=== PATIENT | male | born 1940 | race African-American/Black ===

== ENCOUNTER 2016-12-01 13:03 | Inpatient (IN) | payer OTHER ==
[~2016-12-01] VITALS: Ht 182.9 cm; Wt 118.2 kg
--- NOTE | 2016-12-01 14:35 | PHYS DOC ---
Past Medical History Past Medical History: Diabetes-Type II, Hypertension Additional Past Medical Histor: neuropathy, colon cancer Past Surgical History: Other Additional Past Surgical Histo: colectomy, "swelling removed from neck, Alcohol Use: None Drug Use: None Adult General Chief Complaint Chief Complaint: KNEE INJURY HPI HPI Patient is a 76 year old male with history of hypertension, diabetes type 2, colon cancer, who presents today with bilateral knee pain mild in nature. Patient states he was pushing his grill out when he fell on his right knee on the grass. He states he tried to stand up and fell again on his left knee. Patient denies any loss of consciousness. Review of Systems Review of Systems Constitutional: Denies fever or chills [] Musculoskeletal: Bilateral knee pain and bilateral knee pain Neurologic: Denies headache, focal weakness or sensory changes [] Endocrine: Denies polyuria or polydipsia [] Current Medications Current Medications Current Medications Medications (Trade) Dose Ordered Sig/Arturo Start Time Stop Time Status Last Admin Dose Admin Tramadol HCl (Ultram) 50 mg 1X ONCE 12/01/16 15:30 12/01/16 15:31 DC 12/01/16 15:20 50 MG Allergies Allergies Allergies Coded Allergies Type Severity Reaction Last Updated Verified No Known Drug Allergies 12/01/16 No Physical Exam Physical Exam Constitutional: Well developed, well nourished, no acute distress, non-toxic appearance. [] HENT: Normocephalic, atraumatic, bilateral external ears normal, oropharynx moist, no oral exudates, nose normal. [] Skin: Warm, dry, no erythema, no rash. [] Back: No tenderness, no CVA tenderness. [] Extremities: Bilateral knees with no obvious deformity. Tenderness diffusely throughout bilateral knees. Full range of motion to bilateral knees. Negative Bobby sign and negative Lorenzo's sign negative anterior-posterior drawer sign to bilateral knees. +2 bilateral lower extremity pulses. Cap refill less than 2 seconds the bilateral lower extremities. Sensation intact to bilateral lower extremities. Neurologic: Alert and oriented X 3, normal motor function, normal sensory function, no focal deficits noted. [] Psychologic: Affect normal, judgement normal, mood normal. [] Current Patient Data Vital Signs Vital Signs Date Time Temp Pulse Resp B/P Pulse Ox O2 Delivery O2 Flow Rate FiO2 12/01/16 15:20 20 12/01/16 14:28 93 168/88 99 Room Air 12/01/16 13:10 96.8 96.8 EKG EKG [] Radiology/Procedures Radiology/Procedures [] Course & Med Decision Making Course & Med Decision Making Pertinent Labs and Imaging studies reviewed. (See chart for details) Patient is in the ED with bilateral knee contusion after falling on his knees. Her bilateral knee x-rays interpreted by radiologist are negative for any acute findings. Lloyd wrap applied to bilateral knees, by ED RN, neurovascular exam done by me is normal, cap refill less than 2 seconds. Ice elevation encouraged. I was informed by the nurses patient is not able to get up and ambulate. He was sitting on the wheelchair. I went to evaluate patient possibly. Patient stated he would like to get up and go home. Patient stood up, made a couple steps forward. As he made more steps. He fell back. He landed on his buttocks. He did hit the back of his head on the wheelchair. He did not hit his head on the ground. Patient denies any pain. I was in the room when patient fell. Informed patient I will have to admit him. Consulted with Dr. Rai. Ordered x- rays of the patient's lumbar spine and CT of the head. Dr. Camarillo accepted patient for admission Dragon Disclaimer Dragon Disclaimer This electronic medical record was generated, in whole or in part, using a voice recognition dictation system. Departure Departure Impression: Primary Impression: Contusion, knee Additional Impressions: Fall from standing Lumbar contusion Disposition: ADMITTED INPATIENT Condition: STABLE Referrals: DARLING KEENE MD (PCP) LOI DOSHI MD follow up with your doctor or the provided orthopedic doctor in one week Patient Instructions: Contusion Additional Instructions: You have knee contusion after falling. Wear Lloyd Wrap as tolerated. Ice and elevate the extremity, follow-up with orthopedic doctor in 1-2 weeks if pain continues. Scripts Tramadol Hcl (Ultram)50 Mg Tablet1 Tab PO Q6HRS PRN PAIN #20 TAB Prov:MAMIE RECINOS [employer] 12/01/16 Problem Qualifiers Primary Impression: Contusion, knee Encounter type: initial encounter Laterality: right Qualified Code: S80.01XA - Contusion of right knee, initial encounter Additional Impressions: Fall from standing Encounter type: initial encounter Qualified Code: W19.XXXA - Unspecified fall, initial encounter Lumbar contusion Encounter type: initial encounter Qualified Code: S30.0XXA - Contusion of lower back and pelvis, initial encounter MAMIE RECINOS [employer]CY[employer] Dec 01, 2016 14:35
--- NOTE | 2016-12-01 14:50 | RAD ---
Portable knees, 8 views, 12/01/2016: History: Fall, pain There is a well-defined calcific density along the medial margin of the right femoral condyle compatible with old trauma at the medial collateral ligament insertion site. This is the so-called Zabrina-Stieda lesion. The knee joint spaces are well preserved. There is minimal spurring at the patellofemoral articulations. There is a small calcific density projected over the right suprapatellar region probably representing a quadriceps tendon calcification. A small cortical avulsion fracture arising from the superior aspect of the patella cannot be excluded. There are couple of additional small radiopacities located more superiorly in the right suprapatellar region. No definite acute fracture or dislocation is identified. There is moderate subcutaneous edema particularly along the anterior aspects of both knees. IMPRESSION: 1. Old posttraumatic calcification along the medial margin of the right medial femoral condyle. 2. Small suprapatellar calcific density on the right most likely a tendinous calcification. A recent cortical avulsion fracture is less likely. 3. No definite acute fracture or dislocation is identified. 1.
[2016-12-01] MEDS ORDERED: TRAM-29 PO (15:17)
[2016-12-01] MEDS ORDERED: TRAMADOL 50 MG TABLET. PO ONE (15:30)
[2016-12-01] MEDS ORDERED: DEXTROSE 50% 25 GM / 50ML DISP.SYRIN. IV PRN (16:30)
[2016-12-01] MEDS ORDERED: FENTANYL PF 100 MCG/2 ML VIAL. IV PRN (16:30)
[2016-12-01] MEDS ORDERED: ONDANSETRON PF 4 MG/2 ML VIAL. IV PRN (16:30)
--- NOTE | 2016-12-01 16:41 | RAD ---
Three-view lumbar spine radiographs 12/01/2016 Clinical history: Low back pain post fall. AP and 2 lateral digital radiographs of the lumbar spine were obtained. Minimal S shaped curvature of the thoracolumbar spine is seen. No fracture or subluxation is seen. Degenerative changes are seen involving the facet joints of the lower lumbar spine. Impression: No fracture or subluxation of the lumbar vertebrae is seen.
--- NOTE | 2016-12-01 16:45 | RAD ---
CT of the head without contrast, 12/01/2016: History: Fall, pain The ventricles are within normal limits in size. There is no shift of the midline structures. There is no evidence of acute intracranial hemorrhage or mass effect. A faint deep white matter lucency is noted in the left posterior parietal region. In a patient of this age this most likely reflects chronic ischemic change. IMPRESSION: No acute intracranial abnormality is detected. PQRS Compliance Statement: One or more of the following individualized dose reduction techniques were utilized for this examination: 1. Automated exposure control 2. Adjustment of the mA and/or kV according to patient size 3. Use of iterative reconstruction technique
[2016-12-01] MEDS: INSULIN ASPART 300 UNITS/3 ML INSULN.PEN SQ SCH (17:00)
[2016-12-01 19:00] VITALS: BP 129/75
[2016-12-01 19:47] VITALS: BP 129/75
[2016-12-01] MEDS: IBUPROFEN 400 MG TABLET. PO PRN (22:13)
[2016-12-01 23:04] VITALS: BP 108/59
[2016-12-01 23:06] VITALS: BP 108/59
--- NOTE | 2016-12-01 23:28 | HP ---
ADMIT DATE: 12/01/2016 CHIEF COMPLAINT: Knee pain. HISTORY OF PRESENT ILLNESS: The patient is a 76-year-old overweight gentleman with diabetes, hypertension, diabetic neuropathy, who presented to the Emergency Room after falling on his knees in his yard. He relates that he was trying to reach a nicholas lion and unfortunately lost balance and fell on his right knee in the grass. He tried to stand up and promptly fell again this time on his left knee. Apparently, he fell backwards and hit his head as well, but without any loss of consciousness or wound noticeable. He presented to the ER with the above findings. X-rays ruled out any bony injury; however, upon trying to stand up, his knees once again buckled and he was therefore admitted for pain control. PAST MEDICAL HISTORY: Hypertension, diabetes mellitus, diabetic neuropathy, history of colon cancer status post resection in 1997. FAMILY HISTORY: Daughter of breast cancer two years ago. SOCIAL HISTORY: Lives with his , quit smoking many years ago. ALLERGIES: No known drug allergies. MEDICATIONS: MAR reconciled with home medications. REVIEW OF SYSTEMS: Essentially only positive for pain in both knees. He is able to bend his knees without any difficulties, no tenderness to pressure on his knees, but as soon as he stands up, the weight makes his knees buckle in pain. Rest of organ system review is completely negative. PHYSICAL EXAMINATION: VITAL SIGNS: From today show a blood pressure of 129/75, heart rate of 91, respiratory rate at 19. He is afebrile. GENERAL: This is a 76-year-old gentleman, alert and oriented, in no acute distress, very pleasant. HEENT: Shows no scleral icterus. NECK: Supple without any lymphadenopathy. LUNGS: Clear to auscultation bilaterally. HEART: Regular rate and rhythm. ABDOMEN: Positive bowel sounds, soft, nontender. EXTREMITIES: Show no edema. Evaluation of his knees shows anterior hematoma over his patella and upper portion of his knee joint/distal femur. Right side is significantly worse than left. Full range of motion is intact bilaterally. LABORATORY DATA: Imaging Studies: Knee x-rays show old posttraumatic calcifications along the medial margin of the right medial femoral condyle, calcific density also seen in the suprapatellar area, most likely a tendinous calcification. No acute fracture or dislocation is noted. Lumbar spine x-ray was obtained as well, not showing any subluxation or fracture. CT of the head likewise without any acute findings. ASSESSMENT AND PLAN: The patient is a 76-year-old gentleman status post traumatic injury to his knees. Thank goodness, this is only soft tissue. We will treat conservatively. He would prefer nonopioid medications. We will give NSAIDs and ice to his knees. Get him evaluated by a physical therapy in the morning. He may benefit from walker at home for the next week or two to help him offload some of his weight. We will continue all his home medications. He actually brought his pill dispenser with him. BERT HILARIO MD DR: UR/nts JOB#: [id number] / [id number] DARLING Caldwell MD MTDD
--- NOTE | 2016-12-02 05:51 | ACF ---
Admit Criteria Forms Admit Criteria Forms Admit Criteria Forms MUSCULOSKELETAL DISEASE GRG Clinical Indications for Admission to Inpatient Care (Place 'X' for any and all applicable criteria): Hospital admission is needed for appropriate care of the patient because of 1 or more of the following: [ ]I. Fracture, dislocation, or other musculoskeletal injury requiring inpatient care(medical) as indicated by 1 or more of the following(4)(5)(6)(7) [ ]a) Vertebral fracture requiring observation for instability or neurologic compromise (8) [ ]b) Compartment syndrome (proven or cannot be ruled out during observation level of care) (9) [ ]c) Limb-threatening injury [ ]d) Major injury requiring inpatient stabilization such as traction initiation or external fixation before internal fixation or closure of complex or open fracture [ ]e) Major injury requiring inpatient treatment after emergency or observation level care (as appropriate) [ ]f) Severe pain requiring acute inpatient management [ ]g) Injury with suspicion of abuse or neglect (eg., child, dependent elderly) [ ]II. Newly diagnosed or suspected bone, joint, or orthopedic device infection (e.g., osteomyelitis, septic arthritis) needing 1 or more of the following(1)(2)(3) [ ]a) IV antibiotics that cannot be initiated in other than inpatient setting (e.g., patient too unstable or home infusion not available) [ ]b) Device removal or replacement [ ]c) Bone or soft tissue debridement [ ]d) Joint drainage (drain placement or repetitive aspirations) [ ]III. Severe rheumatologic disease (e.g., systemic lupus erythematosus, rheumatoid arthritis) with complications or comorbidities (Also use Optimal Recovery Care Criteria or General Recovery Criteria as appropriate on the basis of predominant condition), including 1 or more of the following( 10)(11)(12)(13) [ ]a) Severe infection (e.g., MULTIMEDIA COORDINATOR infection, sepsis) (14) [ ]b) Respiratory complications, including 1 or more of the following : [ ]i) Pleural effusion with respiratory compromise [ ]ii) Pulmonary hypertension with congestive failure [ ]iii) Respiratory failure [ ]iv) Pulmonary hemorrhage (15) [ ]c) Hematologic disease, including 1 or more of the following: [ ]i) Coagulopathy with bleeding [ ]ii) Thrombosis with hypercoagulable state [ ]iii) Thrombotic thrombocytopenic purpura [ ]d) Cerebritis with seizures, psychosis, or other severe abnormalities [ ]e) Vertebral destruction with monitoring needed for cervical myelopathy& possible respiratory compromise [ ]f) Exacerbation that requires inpatient treatment (e.g., intravenous immunosuppression) (16) [ ]g) Acute renal failure [ ]h) Cerebritis with seizures, psychosis, Altered mental status, or other neurologic abnormalities [ ]i) Pericardial effusion with tamponade [ ]j) Vertebral destruction, with monitoring needed for cervical myelopathy and possible respiratory compromise [ ]IV. Severe vasculitis with complications or comorbidities (Also use Optimal Recovery Care Criteria General Recovery Criteria as appropriate on the basis of predominant condition), including 1 or more of the following(11)(12)(17)(18)(19)(20) [ ]a) Exacerbation that requires inpatient treatment (e.g., intravenous immunosuppression) (19)(21) [ ]b) Pulmonary hemorrhage (15) [ ]c) MULTIMEDIA COORDINATOR vasculitis with seizures, psychosis, Altered mental status that is severe or persistent, or other severe abnormalities (22) [ ]d) Cerebral infarction [ ]e) Gastrointestinal ischemia [ ]f) Gangrene or threatened amputation [ ]g) Renal failure (16) [ ]h) Other significant complications of vasculitis ( eg., tissue or organ ischemia, organ dysfunction ) [ ]V. Severe myopathy as indicated by 1 or more of the following (28)(29) [ ]a) New onset of airway compromise or inability to swallow [ ]b) Respiratory deterioration with observation needed for impending respiratory failure [ ]c) Exacerbation that requires inpatient treatment (e.g., intravenous immunosuppression) [ ]. Severe crystal gout (arthropathy) indicated by 1 or more of the following (23)(24) [ ]a) Severe pain requiring acute inpatient management [ ]b) Exacerbation that requires inpatient treatment (e.g., intravenous treatment) [ ]VII.Rhabdomyolysis and 1 or more of the following (25)(26)(27) [ ]a) Acute renal failure [ ]b) Need for intravenous hydration after emergency or observation level care (as appropriate) [ ]c) Inability to maintain oral hydration [ ]d) Change in mental status [ ]e) Electrolyte abnormality that remains after emergency or observation level care (as appropriate) [ ]VIII Post amputation complication, as indicated by ANY ONE of the following [ ]a) Infection [ ]b) Dehiscence [ ]c) Myodesis failure [X]IX. Severe pain requiring acute inpatient management due to musculoskeletal condition [ ]X. Musculoskeletal Disease and ALL of the following: [ ]a) Symptom or finding for which emergency and observation care have failed or are not considered appropriate (Use General Criteria: Observation Care as appropriate) [ ]b) Presence of ANY ONE of the following [ ]i) A General Admission Criteria [ ]ii) A Pediatric General Admission Criteria The original [facility] [employer] content created by [facility] has been revised. The portions of the content which have been revised are identified through the use of italic text or in bold, and [facility] has neither reviewed nor approved the modified material. All other unmodified content is copyright [facility]. Please see references footnoted in the original [facility] edition 2016 CORINNE CHUN Dec 02, 2016 05:51
[2016-12-02 05:55] LABS: BASO % 0 % (0-3); EOS % 1 % (0-3); HEMATOCRIT 32.3 % (39.0-53.0); HEMOGLOBIN 10.9 g/dL (13.0-17.5); LYMPH # 1.9 x10^3/uL (1.0-4.8); LYMPH % 27 % (24-48); MEAN CORPUSCULAR HEMOGLOBIN 31 pg (25-35); MEAN CORPUSCULAR HGB CONC 34 g/dL (31-37); MEAN CORPUSCULAR VOLUME 93 fL (79-100); MONO % 10 % (0-9); NEUT % 61 % (31-73); PLATELET COUNT 165 x10^3/uL (140-400); RED BLOOD COUNT 3.47 x10^6/uL (4.30-5.70); RED CELL DISTRIBUTION WIDTH 13.2 % (11.5-14.5); WHITE BLOOD COUNT 7.3 x10^3/uL (4.0-11.0)
[2016-12-02 06:24] LABS: CREATININE 1.6 mg/dL (0.7-1.3); POTASSIUM 4.3 mmol/L (3.5-5.1)
[2016-12-02 07:00] VITALS: BP 130/68
[2016-12-02] MEDS: INSULIN ASPART 300 UNITS/3 ML INSULN.PEN SQ SCH ×3 (08:00→17:18)
--- NOTE | 2016-12-02 10:39 | PDOC ---
PROGRESS NOTES Chief Complaint Chief Complaint cc: fall A/P Fall at home Swelling of Right knee, no fractures seen HTN Plan Pain control PT/OT Monitor labs Fall precautions Consult orthopedic for uncontrolled pain labs reviewed. Vitals Vitals Vital Signs Date Time Temp Pulse Resp B/P Pulse Ox O2 Delivery O2 Flow Rate FiO2 12/02/16 07:00 97.9 79 18 130/68 95 Room Air 97.9 Physical Exam General: Alert, Oriented X3 Heart: Normal S1, Normal S2 Lungs: Clear Abdomen: Normal bowel sounds Extremities: No clubbing Labs LABS Laboratory Tests Test 12/01/16 20:54 12/02/16 05:15 12/02/16 07:29 Glucose (Fingerstick) 141mg/dL (70-99) 137mg/dL (70-99) White Blood Count 7.3x10^3/uL (4.0-11.0) Red Blood Count 3.47x10^6/uL (4.30-5.70) Hemoglobin 10.9g/dL (13.0-17.5) Hematocrit 32.3% (39.0-53.0) Mean Corpuscular Volume 93fL (79-100) Mean Corpuscular Hemoglobin 31pg (25-35) Mean Corpuscular Hemoglobin Concent 34g/dL (31-37) Red Cell Distribution Width 13.2% (11.5-14.5) Platelet Count 165x10^3/uL (140-400) Neutrophils (%) (Auto) 61% (31-73) Lymphocytes (%) (Auto) 27% (24-48) Monocytes (%) (Auto) 10% (0-9) Eosinophils (%) (Auto) 1% (0-3) Basophils (%) (Auto) 0% (0-3) Neutrophils # (Auto) 4.5x10^3uL (1.8-7.7) Lymphocytes # (Auto) 1.9x10^3/uL (1.0-4.8) Monocytes # (Auto) 0.7x10^3/uL (0.0-1.1) Eosinophils # (Auto) 0.1x10^3/uL (0.0-0.7) Basophils # (Auto) 0.0x10^3/uL (0.0-0.2) Sodium Level 138mmol/L (136-145) Potassium Level 4.3mmol/L (3.5-5.1) Chloride Level 103mmol/L (98-107) Carbon Dioxide Level 30mmol/L (21-32) Anion Gap 5 (6-14) Blood Urea Nitrogen 20mg/dL (8-26) Creatinine 1.6mg/dL (0.7-1.3) Estimated GFR (Cockcroft-Gault) 51.0 Glucose Level 136mg/dL (70-99) Calcium Level 9.0mg/dL (8.5-10.1) Assessment and Plan Assessmemt and Plan Problems Medical Problems: (1) Contusion, knee Status: Acute (2) Fall from standing Status: Acute (3) Lumbar contusion Status: Acute Problems: Comment Review of Relevant I have reviewed the following items romi (where applicable) has been applied. Labs Laboratory Tests Test 12/01/16 20:54 12/02/16 05:15 12/02/16 07:29 Glucose (Fingerstick) 141mg/dL (70-99) 137mg/dL (70-99) White Blood Count 7.3x10^3/uL (4.0-11.0) Red Blood Count 3.47x10^6/uL (4.30-5.70) Hemoglobin 10.9g/dL (13.0-17.5) Hematocrit 32.3% (39.0-53.0) Mean Corpuscular Volume 93fL (79-100) Mean Corpuscular Hemoglobin 31pg (25-35) Mean Corpuscular Hemoglobin Concent 34g/dL (31-37) Red Cell Distribution Width 13.2% (11.5-14.5) Platelet Count 165x10^3/uL (140-400) Neutrophils (%) (Auto) 61% (31-73) Lymphocytes (%) (Auto) 27% (24-48) Monocytes (%) (Auto) 10% (0-9) Eosinophils (%) (Auto) 1% (0-3) Basophils (%) (Auto) 0% (0-3) Neutrophils # (Auto) 4.5x10^3uL (1.8-7.7) Lymphocytes # (Auto) 1.9x10^3/uL (1.0-4.8) Monocytes # (Auto) 0.7x10^3/uL (0.0-1.1) Eosinophils # (Auto) 0.1x10^3/uL (0.0-0.7) Basophils # (Auto) 0.0x10^3/uL (0.0-0.2) Sodium Level 138mmol/L (136-145) Potassium Level 4.3mmol/L (3.5-5.1) Chloride Level 103mmol/L (98-107) Carbon Dioxide Level 30mmol/L (21-32) Anion Gap 5 (6-14) Blood Urea Nitrogen 20mg/dL (8-26) Creatinine 1.6mg/dL (0.7-1.3) Estimated GFR (Cockcroft-Gault) 51.0 Glucose Level 136mg/dL (70-99) Calcium Level 9.0mg/dL (8.5-10.1) Laboratory Tests Test 12/01/16 20:54 12/02/16 05:15 12/02/16 07:29 Glucose (Fingerstick) 141mg/dL (70-99) 137mg/dL (70-99) White Blood Count 7.3x10^3/uL (4.0-11.0) Red Blood Count 3.47x10^6/uL (4.30-5.70) Hemoglobin 10.9g/dL (13.0-17.5) Hematocrit 32.3% (39.0-53.0) Mean Corpuscular Volume 93fL (79-100) Mean Corpuscular Hemoglobin 31pg (25-35) Mean Corpuscular Hemoglobin Concent 34g/dL (31-37) Red Cell Distribution Width 13.2% (11.5-14.5) Platelet Count 165x10^3/uL (140-400) Neutrophils (%) (Auto) 61% (31-73) Lymphocytes (%) (Auto) 27% (24-48) Monocytes (%) (Auto) 10% (0-9) Eosinophils (%) (Auto) 1% (0-3) Basophils (%) (Auto) 0% (0-3) Neutrophils # (Auto) 4.5x10^3uL (1.8-7.7) Lymphocytes # (Auto) 1.9x10^3/uL (1.0-4.8) Monocytes # (Auto) 0.7x10^3/uL (0.0-1.1) Eosinophils # (Auto) 0.1x10^3/uL (0.0-0.7) Basophils # (Auto) 0.0x10^3/uL (0.0-0.2) Sodium Level 138mmol/L (136-145) Potassium Level 4.3mmol/L (3.5-5.1) Chloride Level 103mmol/L (98-107) Carbon Dioxide Level 30mmol/L (21-32) Anion Gap 5 (6-14) Blood Urea Nitrogen 20mg/dL (8-26) Creatinine 1.6mg/dL (0.7-1.3) Estimated GFR (Cockcroft-Gault) 51.0 Glucose Level 136mg/dL (70-99) Calcium Level 9.0mg/dL (8.5-10.1) Medications Current Medications Tramadol HCl (Ultram) 50 mg 1X ONCE PO Last administered on 12/01/16 15:20; Start 12/01/16 at 15:30; Stop 12/01/16 at 15:31; Status DC Ondansetron HCl (Zofran) 4 mg PRN Q8HRS PRN IV NAUSEA/VOMITING; Start 12/01/16 at 16:30; Stop 12/02/16 at 16:29 Fentanyl Citrate (Fentanyl 2ml Vial) 50 mcg PRN Q2HR PRN IV PAIN; Start at 16:30; Stop 12/02/16 at 16:29 Insulin Aspart (Novolog) 0-5 UNITS TIDWMEALS SQ ; Start 12/01/16 at 17:00 Dextrose (Dextrose 50%-Water Syringe) 12.5 gm PRN Q15MIN PRN IV SEE COMMENTS; Start 12/01/16 at 16:30 Ibuprofen (Motrin) 400 mg PRN TID PRN PO INFLAMMATION Last administered on 12/01 22:13; Start 12/01/16 at 22:00 Active Scripts Active Ultram (Tramadol Hcl) 50 Mg Tablet 1 Tab PO Q6HRS PRN Vitals/I & O Vital Sign - Last 24 Hours 12/01/16 12/01/16 12/01/16 12/01/16 13:10 13:28 13:58 14:28 Temp 96.8 96.8 Pulse 94 98 92 93 Resp 20 18 B/P 180/73 154/74 163/81 168/88 Pulse Ox 99 99 99 99 O2 Delivery Room Air Room Air Room Air Room Air 12/01/16 12/01/16 12/01/16 12/01/16 14:58 15:20 16:08 16:42 Pulse 94 99 97 Resp 18 B/P 175/114 141/62 169/80 Pulse Ox 99 100 97 O2 Delivery Room Air Room Air Room Air 12/01/16 12/01/16 12/01/16 12/01/16 17:12 17:42 18:12 19:00 Temp 97.7 97.7 Pulse 94 91 88 91 Resp B/P 148/76 163/79 156/72 129/75 Pulse Ox 98 99 99 96 O2 Delivery Room Air Room Air Room Air Room Air 12/01/16 12/01/16 12/01/16 12/01/16 19:47 20:00 22:44 23:04 Temp 97.7 98.7 97.7 98.7 Pulse 91 95 Resp 18 B/P 129/75 108/59 Pulse Ox 96 93 O2 Delivery Room Air Room Air Room Air Room Air 12/01/16 12/02/16 23:06 07:00 Temp 98.7 97.9 98.7 97.9 Pulse 95 79 Resp 18 B/P 108/59 130/68 Pulse Ox 93 95 O2 Delivery Room Air Intake and Output 12/01/16 12/01/16 12/02/16 15:00 23:00 07:00 Intake Total 800 ml Output Total 375 ml 1500 ml Balance -375 ml -700 ml EDVIN REDMOND MD Dec 02, 2016 10:39
[2016-12-02 11:00] VITALS: BP 124/65
[2016-12-02] MEDS: IBUPROFEN 400 MG TABLET. PO PRN (13:10)
[2016-12-02 14:45] VITALS: BP 124/63
[2016-12-02] MEDS: HYDROCODONE/APAP 5/325MG TABLET. PO PRN (17:18)
[2016-12-02 19:00] VITALS: BP 123/61
[2016-12-02 23:00] VITALS: BP 130/72
[2016-12-03 03:00] VITALS: BP 146/68
[2016-12-03 07:00] VITALS: BP 129/60
[2016-12-03 07:19] LABS: CALCIUM 8.7 mg/dL (8.5-10.1); CREATININE 1.5 mg/dL (0.7-1.3); GFR 54.9; POTASSIUM 4.6 mmol/L (3.5-5.1)
[2016-12-03] MEDS: INSULIN ASPART 300 UNITS/3 ML INSULN.PEN SQ SCH ×3 (08:00→17:00)
[2016-12-03 11:00] VITALS: BP 137/62
--- NOTE | 2016-12-03 11:10 | RAD ---
PROCEDURE MR of the bilateral thighs History bilateral pain after a fall, quadriceps tendon tears. TECHNIQUE Routine multiplanar sequences are obtained through the right and left thighs HISTORY COMPARISON FINDINGS [id number] includes the mid to distal aspect of the right and left thigh. Right thigh Complete rupture of the distal quadriceps tendon at the patellar attachment. There is less than 1 centimeter fluid gap between the distal tendon and the patella. Although visualization is limited, there is probably a high-grade tear medial retinacular structures. Extensive surrounding fluid and hemorrhage which dissects through the proximal thigh. There is feathery edema and fluid signal within the quadriceps musculature, greatest at the vastus lateralis muscle, compatible with partial intramuscular tearing. Generalized subcutaneous edema or hemorrhage. No evidence of bone marrow edema or acute fracture. Left thigh High-grade tear of the distal quadriceps tendon, either complete or near-complete, located about 1 centimeter above the patellar attachment. There may be a few intact fibers maintaining continuity but most of the tendon is torn. There is surrounding fluid and hemorrhage. Although incompletely seen, there may be a tear of the medial retinacular structures as well. Fluid and hemorrhage in this area dissects proximally in the thigh. There is intramuscular partial tearing particularly the vastus lateralis muscle. No evidence of bone lesion, marrow edema or acute fracture. IMPRESSION 1. Complete rupture of the distal right quadriceps tendon with proximal intramuscular injury. 2. Complete or near complete rupture of the distal left quadriceps tendon with proximal intramuscular injury. Electronically signed by: Garth Gunn MD (Dec 03, 2016 11:09:31)
--- NOTE | 2016-12-03 12:48 | PDOC ---
PROGRESS NOTES Chief Complaint Chief Complaint cc: fall A/P Fall at home Swelling of Right knee, Complete rupture of the distal right quadriceps tendon Complete/ near complete rupture of the distal left quadriceps tendon HTN Plan Pain control with Noco MRI results d/w pt and his Surgical plans in AM PT/OT Monitor labs Fall precautions IV hydration Monitor renal functions DVT prophylaxis. Vitals Vitals Vital Signs Date Time Temp Pulse Resp B/P Pulse Ox O2 Delivery O2 Flow Rate FiO2 12/03/16 11:00 97.4 88 22 137/62 98 Room Air 97.4 Physical Exam General: Alert, Oriented X3 Heart: Normal S1, Normal S2 Lungs: Clear Abdomen: Normal bowel sounds Extremities: No clubbing Labs LABS Laboratory Tests Test 12/02/16 16:15 12/02/16 21:21 12/03/16 06:05 12/03/16 07:43 Glucose (Fingerstick) 93mg/dL (70-99) 98mg/dL (70-99) 118mg/dL (70-99) Sodium Level 139mmol/L (136-145) Potassium Level 4.6mmol/L (3.5-5.1) Chloride Level 103mmol/L (98-107) Carbon Dioxide Level 28mmol/L (21-32) Anion Gap 8 (6-14) Blood Urea Nitrogen 21mg/dL (8-26) Creatinine 1.5mg/dL (0.7-1.3) Estimated GFR (Cockcroft-Gault) 54.9 Glucose Level 110mg/dL (70-99) Calcium Level 8.7mg/dL (8.5-10.1) Test 12/03/16 11:30 Glucose (Fingerstick) 128mg/dL (70-99) Assessment and Plan Assessmemt and Plan Problems Medical Problems: (1) Contusion, knee Status: Acute (2) Fall from standing Status: Acute (3) Lumbar contusion Status: Acute Problems: Comment Review of Relevant I have reviewed the following items romi (where applicable) has been applied. Labs Laboratory Tests Test 12/01/16 20:54 12/02/16 05:15 12/02/16 07:29 12/02/16 10:57 Glucose (Fingerstick) 141mg/dL (70-99) 137mg/dL (70-99) 125mg/dL (70-99) White Blood Count 7.3x10^3/uL (4.0-11.0) Red Blood Count 3.47x10^6/uL (4.30-5.70) Hemoglobin 10.9g/dL (13.0-17.5) Hematocrit 32.3% (39.0-53.0) Mean Corpuscular Volume 93fL (79-100) Mean Corpuscular Hemoglobin 31pg (25-35) Mean Corpuscular Hemoglobin Concent 34g/dL (31-37) Red Cell Distribution Width 13.2% (11.5-14.5) Platelet Count 165x10^3/uL (140-400) Neutrophils (%) (Auto) 61% (31-73) Lymphocytes (%) (Auto) 27% (24-48) Monocytes (%) (Auto) 10% (0-9) Eosinophils (%) (Auto) 1% (0-3) Basophils (%) (Auto) 0% (0-3) Neutrophils # (Auto) 4.5x10^3uL (1.8-7.7) Lymphocytes # (Auto) 1.9x10^3/uL (1.0-4.8) Monocytes # (Auto) 0.7x10^3/uL (0.0-1.1) Eosinophils # (Auto) 0.1x10^3/uL (0.0-0.7) Basophils # (Auto) 0.0x10^3/uL (0.0-0.2) Sodium Level 138mmol/L (136-145) Potassium Level 4.3mmol/L (3.5-5.1) Chloride Level 103mmol/L (98-107) Carbon Dioxide Level 30mmol/L (21-32) Anion Gap 5 (6-14) Blood Urea Nitrogen 20mg/dL (8-26) Creatinine 1.6mg/dL (0.7-1.3) Estimated GFR (Cockcroft-Gault) 51.0 Glucose Level 136mg/dL (70-99) Calcium Level 9.0mg/dL (8.5-10.1) Test 12/02/16 16:15 12/02/16 21:21 12/03/16 06:05 12/03/16 07:43 Glucose (Fingerstick) 93mg/dL (70-99) 98mg/dL (70-99) 118mg/dL (70-99) Sodium Level 139mmol/L (136-145) Potassium Level 4.6mmol/L (3.5-5.1) Chloride Level 103mmol/L (98-107) Carbon Dioxide Level 28mmol/L (21-32) Anion Gap 8 (6-14) Blood Urea Nitrogen 21mg/dL (8-26) Creatinine 1.5mg/dL (0.7-1.3) Estimated GFR (Cockcroft-Gault) 54.9 Glucose Level 110mg/dL (70-99) Calcium Level 8.7mg/dL (8.5-10.1) Test 12/03/16 11:30 Glucose (Fingerstick) 128mg/dL (70-99) Laboratory Tests Test 12/02/16 16:15 12/02/16 21:21 12/03/16 06:05 12/03/16 07:43 Glucose (Fingerstick) 93mg/dL (70-99) 98mg/dL (70-99) 118mg/dL (70-99) Sodium Level 139mmol/L (136-145) Potassium Level 4.6mmol/L (3.5-5.1) Chloride Level 103mmol/L (98-107) Carbon Dioxide Level 28mmol/L (21-32) Anion Gap 8 (6-14) Blood Urea Nitrogen 21mg/dL (8-26) Creatinine 1.5mg/dL (0.7-1.3) Estimated GFR (Cockcroft-Gault) 54.9 Glucose Level 110mg/dL (70-99) Calcium Level 8.7mg/dL (8.5-10.1) Test 12/03/16 11:30 Glucose (Fingerstick) 128mg/dL (70-99) Medications Current Medications Tramadol HCl (Ultram) 50 mg 1X ONCE PO Last administered on 12/01/16t 15:20; Start 12/01/16 at 15:30; Stop 12/01/16 at 15:31; Status DC Ondansetron HCl (Zofran) 4 mg PRN Q8HRS PRN IV NAUSEA/VOMITING; Start 12/01/16 at 16:30; Stop 12/02/16 at 16:29; Status DC Fentanyl Citrate (Fentanyl 2ml Vial) 50 mcg PRN Q2HR PRN IV PAIN; Start at 16:30; Stop 12/02/16 at 16:29; Status DC Insulin Aspart (Novolog) 0-5 UNITS TIDWMEALS SQ ; Start 12/01/16 at 17:00 Dextrose (Dextrose 50%-Water Syringe) 12.5 gm PRN Q15MIN PRN IV SEE COMMENTS; Start 12/01/16 at 16:30 Ibuprofen (Motrin) 400 mg PRN TID PRN PO INFLAMMATION Last administered on 12/02 13:10; Start 12/01/16 at 22:00 Acetaminophen/ Hydrocodone Bitart (Lortab 5/325) 1 tab PRN Q4HRS PRN PO PAIN Last administered on 12/02/16 17:18; Start 12/02/16 at 15:30 Active Scripts Active Ultram (Tramadol Hcl) 50 Mg Tablet 1 Tab PO Q6HRS PRN Vitals/I & O Vital Sign - Last 24 Hours 12/02/16 12/02/16 12/02/16 12/02/16 14:45 17:18 19:00 20:10 Temp 97.9 98.4 97.9 98.4 Pulse 76 81 Resp 18 16 B/P 124/63 123/61 Pulse Ox 99 94 O2 Delivery Room Air Room Air Room Air Room Air 12/02/16 12/03/16 12/03/16 12/03/16 23:00 03:00 07:00 11:00 Temp 98.6 98.9 97.9 97.4 98.6 98.9 97.9 97.4 Pulse 78 77 84 88 Resp 18 18 20 22 B/P 130/72 146/68 129/60 137/62 Pulse Ox 94 97 97 98 O2 Delivery Room Air Room Air Room Air Room Air Intake and Output 12/02/16 12/02/16 12/03/16 15:00 23:00 07:00 Intake Total 500 ml 1050 ml Output Total 1000 ml 550 ml Balance 500 ml 50 ml -550 ml EDVIN REDMOND MD Dec 03, 2016 12:48
--- NOTE | 2016-12-03 13:10 | CONS ---
DATE OF CONSULTATION: 12/02/2016 ATTENDING PHYSICIAN: Dr. Camarillo. The patient was seen at the request of Dr. Frances for evaluation about his knee pain. HISTORY OF PRESENT ILLNESS: This is a 76-year-old right-handed male with known diabetes mellitus, hypertension, diabetic peripheral neuropathy, admitted through the Emergency Room after falling on his knees while working in the yard. He was trying to pull some weeds, his right foot slipped on wet surface and he felt a pop while landing on his right knee, then while trying to get up, his left knee also popped while falling down, since then he had difficulty to stand up. He was seen in the Emergency Room, diagnosed as having contusion in knee and he wants to go home and while tried to get up, he fell again in the Emergency Room. The patient was admitted for further evaluation and treatment. He admits less swelling of his knees, still some bruising of his right knee and swelling of his right knee. The patient also with history of carcinoma of colon, status post resection in 1997. Family history of daughter of breast cancer 2 years ago. Lives with his , had stairs to climb to enter the bedroom area, railing in place. He is not known allergic to any medication and he is independent with his mobility and self-care skills, not using any assistive devices prior to his fall on 12/01/2016. He had x-rays of knees, which revealed old post-traumatic calcification along the medial margin of right medial femoral condyle, small suprapatellar calcific density on the right, most likely tendinous calcification, a recent cortical avulsion fraction is less likely. No definite acute fracture or dislocation is identified. 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 The patient had lumbar spine x-rays, which revealed mild degenerative joint disease changes, minimal ____ curvature of thoracolumbar spine and CT scan of the brain failed to reveal any acute abnormality, deep white matter lucency, ____ in the left posterior parietal region representing chronic ischemic changes. The patient is being followed by physical therapy. Physical therapy noted him unable to hold any resistance against gravity and able to give some muscle contraction with a quad set but diminished from expected effort. They noted him requiring minimal assistance for supine to sit, minimal assistance sit to supine, bed mobility requiring lower extremity assistance, maximal assistance with transfers, sit to stand with a roller walker, attempted to stand multiple times. He completed about 75% of the stand with the bed raised during the last effort with maximal assistance with bilateral knee buckle and had quick descent to edge of the bed. He was able to use upper body to scoot back into the bed. He reports pain as limiting factor. PHYSICAL EXAMINATION: Today revealed an elderly obese male. He is alert, oriented to time, place, person and circumstance and follows commands appropriately, moves all 4 extremities voluntarily where he had 4+/5 grade muscle strength overall except no active knee extension bilaterally. He had gaping at the site of quadriceps tendon proximal to patella bilaterally. He had minimal bruising of the skin over anterior aspect of right knee. He had pain free range of motion of all four extremity joints. Deep tendon reflexes are decreased overall with absent knee and ankle jerks. He had equal perception of touch and pinprick sensation bilaterally. No significant pain or tenderness to palpation over lumbar spine area. ASSESSMENT: Acute rupture of quadriceps tendon bilaterally from a fall, onset 12/01/2016 in a patient with known diabetes mellitus, hypertension with associated diabetic peripheral neuropathy, also carcinoma of colon, status post resection, mild obesity. RECOMMENDATIONS: To obtain MRI scan of his knees to confirm rupture of the quadriceps tendon to ____ try to provide him knee arthrosis that will help with knee extension or keep the knee in extension position and to consult Dr. Howard who felt comfortable with quadriceps tendon repair. Dr. Frances, I appreciate asking me to participate in the care of this interesting patient. I will be glad to follow him with you as needed for rehabilitation. He probably needs to be transferred to acute rehab unit after the surgical procedure for continued work with his mobility and self-care skills. ANEUDY THURSTON MD DR: MADHAVI/alice JOB#: [id number] / [id number]
--- NOTE | 2016-12-03 14:48 | PDOC ---
PROGRESS NOTES Subjective Subjective He is comfortable but continues to have difficulty to extend his knees. Objective Objective Vital Signs Date Time Temp Pulse Resp B/P Pulse Ox O2 Delivery O2 Flow Rate FiO2 12/03/16 11:00 97.4 88 22 137/62 98 Room Air 97.4 Intake and Output 12/03/16 07:00 Intake Total 1550 ml Output Total 1550 ml Balance 0 ml Intake Oral 1550 ml Output Urine Total 1550 ml Physical Exam Physical Exam Mri scan confirmed rupture of quadriceps tendon with associated tearing of quadriceps muscle belly and hematoma.He continues without any active knee extension bilaterally. Assessment Assessment Problems Medical Problems: (1) Contusion, knee Status: Acute (2) Fall from standing Status: Acute (3) Lumbar contusion Status: Acute Plan Plan of Care Plans for surgical repair tomorrow and he will receive brace to both knees and to resume therapy follow up and to rehab or SNF depending on his participation and progress with therapy and restrictions about weight bearing on his feet. Comment Review of Relevant I have reviewed the following items romi (where applicable) has been applied. Labs Laboratory Tests Test 12/01/16 20:54 12/02/16 05:15 12/02/16 07:29 12/02/16 10:57 Glucose (Fingerstick) 141mg/dL (70-99) 137mg/dL (70-99) 125mg/dL (70-99) White Blood Count 7.3x10^3/uL (4.0-11.0) Red Blood Count 3.47x10^6/uL (4.30-5.70) Hemoglobin 10.9g/dL (13.0-17.5) Hematocrit 32.3% (39.0-53.0) Mean Corpuscular Volume 93fL (79-100) Mean Corpuscular Hemoglobin 31pg (25-35) Mean Corpuscular Hemoglobin Concent 34g/dL (31-37) Red Cell Distribution Width 13.2% (11.5-14.5) Platelet Count 165x10^3/uL (140-400) Neutrophils (%) (Auto) 61% (31-73) Lymphocytes (%) (Auto) 27% (24-48) Monocytes (%) (Auto) 10% (0-9) Eosinophils (%) (Auto) 1% (0-3) Basophils (%) (Auto) 0% (0-3) Neutrophils # (Auto) 4.5x10^3uL (1.8-7.7) Lymphocytes # (Auto) 1.9x10^3/uL (1.0-4.8) Monocytes # (Auto) 0.7x10^3/uL (0.0-1.1) Eosinophils # (Auto) 0.1x10^3/uL (0.0-0.7) Basophils # (Auto) 0.0x10^3/uL (0.0-0.2) Sodium Level 138mmol/L (136-145) Potassium Level 4.3mmol/L (3.5-5.1) Chloride Level 103mmol/L (98-107) Carbon Dioxide Level 30mmol/L (21-32) Anion Gap 5 (6-14) Blood Urea Nitrogen 20mg/dL (8-26) Creatinine 1.6mg/dL (0.7-1.3) Estimated GFR (Cockcroft-Gault) 51.0 Glucose Level 136mg/dL (70-99) Calcium Level 9.0mg/dL (8.5-10.1) Test 12/02/16 16:15 12/02/16 21:21 12/03/16 06:05 12/03/16 07:43 Glucose (Fingerstick) 93mg/dL (70-99) 98mg/dL (70-99) 118mg/dL (70-99) Sodium Level 139mmol/L (136-145) Potassium Level 4.6mmol/L (3.5-5.1) Chloride Level 103mmol/L (98-107) Carbon Dioxide Level 28mmol/L (21-32) Anion Gap 8 (6-14) Blood Urea Nitrogen 21mg/dL (8-26) Creatinine 1.5mg/dL (0.7-1.3) Estimated GFR (Cockcroft-Gault) 54.9 Glucose Level 110mg/dL (70-99) Calcium Level 8.7mg/dL (8.5-10.1) Test 12/03/16 11:30 Glucose (Fingerstick) 128mg/dL (70-99) Laboratory Tests Test 12/02/16 16:15 12/02/16 21:21 12/03/16 06:05 12/03/16 07:43 Glucose (Fingerstick) 93mg/dL (70-99) 98mg/dL (70-99) 118mg/dL (70-99) Sodium Level 139mmol/L (136-145) Potassium Level 4.6mmol/L (3.5-5.1) Chloride Level 103mmol/L (98-107) Carbon Dioxide Level 28mmol/L (21-32) Anion Gap 8 (6-14) Blood Urea Nitrogen 21mg/dL (8-26) Creatinine 1.5mg/dL (0.7-1.3) Estimated GFR (Cockcroft-Gault) 54.9 Glucose Level 110mg/dL (70-99) Calcium Level 8.7mg/dL (8.5-10.1) Test 12/03/16 11:30 Glucose (Fingerstick) 128mg/dL (70-99) Medications Current Medications Tramadol HCl (Ultram) 50 mg 1X ONCE PO Last administered on 12/01/16 15:20; Start 12/01/16 at 15:30; Stop 12/01/16 at 15:31; Status DC Ondansetron HCl (Zofran) 4 mg PRN Q8HRS PRN IV NAUSEA/VOMITING; Start 12/01/16 at 16:30; Stop 12/02/16 at 16:29; Status DC Fentanyl Citrate (Fentanyl 2ml Vial) 50 mcg PRN Q2HR PRN IV PAIN; Start at 16:30; Stop 12/02/16 at 16:29; Status DC Insulin Aspart (Novolog) 0-5 UNITS TIDWMEALS SQ ; Start 12/01/16 at 17:00 Dextrose (Dextrose 50%-Water Syringe) 12.5 gm PRN Q15MIN PRN IV SEE COMMENTS; Start 12/01/16 at 16:30 Ibuprofen (Motrin) 400 mg PRN TID PRN PO INFLAMMATION Last administered on 12/02 13:10; Start 12/01/16 at 22:00 Acetaminophen/ Hydrocodone Bitart 1 tab 1 tab PRN Q4HRS PRN PO PAIN Last administered on 12/02/16 17:18; Start 12/02/16 at 15:30 Sodium Chloride (Iv Sodium Chloride 0.9% 1000ml Bag) 1,000 ml @ 75 mls/hr [id number] IV ; Start 12/03/16 at 12:45 Enoxaparin Sodium (Lovenox 40mg Syringe) 40 mg DAILY SQ ; Start 12/04/16 at 09: 00; Stop 12/04/16 at 09:00; Status DC Enoxaparin Sodium (Lovenox 40mg Syringe) 40 mg Q24H SQ ; Start 12/03/16 at 13:00 Ondansetron HCl (Zofran) 4 mg PRN Q6HRS PRN IV NAUSEA/VOMITING; Start 12/04/16 at 07:00; Stop 12/05/16 at 06:59 Fentanyl Citrate (Fentanyl 2ml Vial) 25 mcg PRN Q5MIN PRN IV MILD PAIN; Start 12/04/16 at 07:00; Stop 12/05/16 at 06:59 Fentanyl Citrate (Fentanyl 2ml Vial) 50 mcg PRN Q5MIN PRN IV MODERATE PAIN; Start 12/04/16 at 07:00; Stop 12/05/16 at 06:59 Morphine Sulfate 1 mg 1 mg PRN Q10MIN PRN IV SEVERE PAIN; Start 12/04/16 at 07: 00; Stop 12/05/16 at 06:59 Lactated Ringer's (Iv Lactated Ringers) 1,000 ml @ 30 mls/hr Q24H IV ; Start at 07:00; Stop 12/04/16 at 18:59 Lidocaine HCl 2 ml PRN 1X PRN ID PRIOR TO IV START; Start 12/04/16 at 07:00; Stop 12/05/16 at 06:59 Hydromorphone HCl (Dilaudid) 0.5 mg PRN Q10MIN PRN IV SEV PAIN, Second choice; Start 12/04/16 at 07:00; Stop 12/05/16 at 06:59 Prochlorperazine Edisylate (Compazine) 5 mg PACU PRN PRN IV NAUSEA, MRX1; Start 12/04/16 at 07:00; Stop 12/05/16 at 06:59 Active Scripts Active Ultram (Tramadol Hcl) 50 Mg Tablet 1 Tab PO Q6HRS PRN Vitals/I & O Vital Sign - Last 24 Hours 12/02/16 12/02/16 12/02/1617 14:45 17:18 19:00 20:10 Temp 97.9 98.4 97.9 98.4 Pulse 76 81 Resp 16 B/P 124/63 123/61 Pulse Ox 99 94 O2 Delivery Room Air Room Air Room Air Room Air 12/02/16 12/03/16 12/03/16 12/03/16 23:00 03:00 07:00 11:00 Temp 98.6 98.9 97.9 97.4 98.6 98.9 97.9 97.4 Pulse 78 77 84 88 Resp 18 18 20 22 B/P 130/72 146/68 129/60 137/62 Pulse Ox 94 97 97 98 O2 Delivery Room Air Room Air Room Air Room Air Intake and Output 12/02/16 12/02/16 12/03/16 15:00 23:00 07:00 Intake Total 500 ml 1050 ml Output Total 1000 ml 550 ml Balance 500 ml 50 ml -550 ml ANEUDY THURSTON MD Dec 03, 2016 14:48
[2016-12-03 15:00] VITALS: BP 121/61
[2016-12-03] MEDS ORDERED: MAGNESIUM HYDROXIDE 2,400 MG/30 ML ORAL.SUSP. PO PRN (15:00)
[2016-12-03] MEDS: IV NORMAL SALINE 1000ML BAG 1,000 ML IV SCH (15:27)
[2016-12-03] MEDS: HYDROCODONE/APAP 5/325MG TABLET. PO PRN ×2 (15:28→20:09)
[2016-12-03] MEDS: SENNOSIDES/DOCUSATE 8.6/50MG TABLET. PO SCH ×2 (15:29→20:10)
[2016-12-03] MEDS: ENOXAPARIN 40 MG/0.4 ML SYRINGE. SQ SCH (15:30)
--- NOTE | 2016-12-03 16:09 | PDOC2 ---
CONSULT Date of Consult Date of Consult DATE: 12/03/16 TIME: 12:02 Reason for Consult Reason for Consult: bilateral knee pain after a fall Referring Physician Referring Physician: Dr Izaguirre Identification/Chief Complaint Chief Complaint bilateral knee pain, inability to ambulate Source Source: Chart review, Patient History of Present Illness Reason for Visit: The patient is a 76 year old male who states that he fell on wednesday from standing. He attempted to stand back up and his right leg would not support him so he fell again immediately. at that point he was unable to get up at all. he was brought to the ER. He has pain and palpable defects on bilateral knees, just superior to the patellas. An MRI of his legs were ordered which revealed bilateral complete quadricep tendon ruptures. I was consulted for surgical repair. The patient does not report any previous knee pain or problems with his knees. Past Medical History GI: Other (colon cancer) Endocrine: Diabetes Past Surgical History Past Surgical History: Colon Resection Social History No ALCOHOL: none Lives: with Family Current Problem List Problem List Problems Medical Problems: (1) Contusion, knee Status: Acute (2) Fall from standing Status: Acute (3) Lumbar contusion Status: Acute Current Medications Current Medications Current Medications Tramadol HCl (Ultram) 50 mg 1X ONCE PO Last administered on 12/01/16 15:20; Start 12/01/16 at 15:30; Stop 12/01/16 at 15:31; Status DC Ondansetron HCl (Zofran) 4 mg PRN Q8HRS PRN IV NAUSEA/VOMITING; Start 12/01/16 at 16:30; Stop 12/02/16 at 16:29; Status DC Fentanyl Citrate (Fentanyl 2ml Vial) 50 mcg PRN Q2HR PRN IV PAIN; Start at 16:30; Stop 12/02/16 at 16:29; Status DC Insulin Aspart (Novolog) 0-5 UNITS TIDWMEALS SQ ; Start 12/01/16 at 17:00 Dextrose (Dextrose 50%-Water Syringe) 12.5 gm PRN Q15MIN PRN IV SEE COMMENTS; Start 12/01/16 at 16:30 Ibuprofen (Motrin) 400 mg PRN TID PRN PO INFLAMMATION Last administered on 12/02 13:10; Start 12/01/16 at 22:00 Acetaminophen/ Hydrocodone Bitart 1 tab 1 tab PRN Q4HRS PRN PO PAIN Last administered on 12/03/16 15:28; Start 12/02/16 at 15:30 Sodium Chloride (Iv Sodium Chloride 0.9% 1000ml Bag) 1,000 ml @ 75 mls/hr [id number] IV Last administered on 12/03/16 15:27; Start 12/03/16 at 12:45 Enoxaparin Sodium (Lovenox 40mg Syringe) 40 mg DAILY SQ ; Start 12/04/16 at 09: 00; Stop 12/04/16 at 09:00; Status DC Enoxaparin Sodium (Lovenox 40mg Syringe) 40 mg Q24H SQ Last administered on 15:30; Start 12/03/16 at 13:00 Ondansetron HCl (Zofran) 4 mg PRN Q6HRS PRN IV NAUSEA/VOMITING; Start 12/04/16 at 07:00; Stop 12/05/16 at 06:59 Fentanyl Citrate (Fentanyl 2ml Vial) 25 mcg PRN Q5MIN PRN IV MILD PAIN; Start 12/04/16 at 07:00; Stop 12/05/16 at 06:59 Fentanyl Citrate (Fentanyl 2ml Vial) 50 mcg PRN Q5MIN PRN IV MODERATE PAIN; Start 12/04/16 at 07:00; Stop 12/05/16 at 06:59 Morphine Sulfate 1 mg 1 mg PRN Q10MIN PRN IV SEVERE PAIN; Start 12/04/16 at 07: 00; Stop 12/05/16 at 06:59 Lactated Ringer's (Iv Lactated Ringers) 1,000 ml @ 30 mls/hr Q24H IV ; Start at 07:00; Stop 12/04/16 at 18:59 Lidocaine HCl 2 ml PRN 1X PRN ID PRIOR TO IV START; Start 12/04/16 at 07:00; Stop 12/05/16 at 06:59 Hydromorphone HCl (Dilaudid) 0.5 mg PRN Q10MIN PRN IV SEV PAIN, Second choice; Start 12/04/16 at 07:00; Stop 12/05/16 at 06:59 Prochlorperazine Edisylate (Compazine) 5 mg PACU PRN PRN IV NAUSEA, MRX1; Start 12/04/16 at 07:00; Stop 12/05/16 at 06:59 Magnesium Hydroxide (Milk Of Magnesia) 2,400 mg PRN DAILY PRN PO CONSTIPATION; Start 12/03/16 at 15:00 Senna/Docusate Sodium (Senna Plus) 1 tab BID PO Last administered on 12/03/16t 15:29; Start 12/03/16 at 15:00 Active Scripts Active Ultram (Tramadol Hcl) 50 Mg Tablet 1 Tab PO Q6HRS PRN Allergies Allergies: Coded Allergies: No Known Drug Allergies (Unverified , 12/01/16) ROS General: No: Appetite, Chills, Fatigue, Malaise, Night Sweats, Other Musculoskeletal: Yes Gait Disturbance, Yes Joint Pain, Yes Joint Swelling, Yes Muscle Pain, Yes Muscular Weakness Physical Exam General: Alert, Oriented X3, Cooperative, No acute distress Abdomen: Soft MUSCULOSKELETAL: Other (bilateral lower extremities with palpable defects at the superior patella. no ecchymosis or swelling. no swelling or ttp distally. nvi distally. unable to perform straight leg raise or extend legs bilaterally. ) Vitals VITALS Vital Signs Date Time Temp Pulse Resp B/P Pulse Ox O2 Delivery O2 Flow Rate FiO2 12/03/16 15:28 Room Air 12/03/16 15:00 98.2 84 18 121/61 98 98.2 Labs Labs Laboratory Tests Test 12/01/16 20:54 12/02/16 05:15 12/02/16 07:29 12/02/16 10:57 Glucose (Fingerstick) 141mg/dL (70-99) 137mg/dL (70-99) 125mg/dL (70-99) White Blood Count 7.3x10^3/uL (4.0-11.0) Red Blood Count 3.47x10^6/uL (4.30-5.70) Hemoglobin 10.9g/dL (13.0-17.5) Hematocrit 32.3% (39.0-53.0) Mean Corpuscular Volume 93fL (79-100) Mean Corpuscular Hemoglobin 31pg (25-35) Mean Corpuscular Hemoglobin Concent 34g/dL (31-37) Red Cell Distribution Width 13.2% (11.5-14.5) Platelet Count 165x10^3/uL (140-400) Neutrophils (%) (Auto) 61% (31-73) Lymphocytes (%) (Auto) 27% (24-48) Monocytes (%) (Auto) 10% (0-9) Eosinophils (%) (Auto) 1% (0-3) Basophils (%) (Auto) 0% (0-3) Neutrophils # (Auto) 4.5x10^3uL (1.8-7.7) Lymphocytes # (Auto) 1.9x10^3/uL (1.0-4.8) Monocytes # (Auto) 0.7x10^3/uL (0.0-1.1) Eosinophils # (Auto) 0.1x10^3/uL (0.0-0.7) Basophils # (Auto) 0.0x10^3/uL (0.0-0.2) Sodium Level 138mmol/L (136-145) Potassium Level 4.3mmol/L (3.5-5.1) Chloride Level 103mmol/L (98-107) Carbon Dioxide Level 30mmol/L (21-32) Anion Gap 5 (6-14) Blood Urea Nitrogen 20mg/dL (8-26) Creatinine 1.6mg/dL (0.7-1.3) Estimated GFR (Cockcroft-Gault) 51.0 Glucose Level 136mg/dL (70-99) Calcium Level 9.0mg/dL (8.5-10.1) Test 12/02/16 16:15 12/02/16 21:21 12/03/16 06:05 12/03/16 07:43 Glucose (Fingerstick) 93mg/dL (70-99) 98mg/dL (70-99) 118mg/dL (70-99) Sodium Level 139mmol/L (136-145) Potassium Level 4.6mmol/L (3.5-5.1) Chloride Level 103mmol/L (98-107) Carbon Dioxide Level 28mmol/L (21-32) Anion Gap 8 (6-14) Blood Urea Nitrogen 21mg/dL (8-26) Creatinine 1.5mg/dL (0.7-1.3) Estimated GFR (Cockcroft-Gault) 54.9 Glucose Level 110mg/dL (70-99) Calcium Level 8.7mg/dL (8.5-10.1) Test 12/03/16 11:30 Glucose (Fingerstick) 128mg/dL (70-99) Laboratory Tests Test 12/02/16 16:15 12/02/16 21:21 12/03/16 06:05 12/03/16 07:43 Glucose (Fingerstick) 93mg/dL (70-99) 98mg/dL (70-99) 118mg/dL (70-99) Sodium Level 139mmol/L (136-145) Potassium Level 4.6mmol/L (3.5-5.1) Chloride Level 103mmol/L (98-107) Carbon Dioxide Level 28mmol/L (21-32) Anion Gap 8 (6-14) Blood Urea Nitrogen 21mg/dL (8-26) Creatinine 1.5mg/dL (0.7-1.3) Estimated GFR (Cockcroft-Gault) 54.9 Glucose Level 110mg/dL (70-99) Calcium Level 8.7mg/dL (8.5-10.1) Test 12/03/16 11:30 Glucose (Fingerstick) 128mg/dL (70-99) Images Images MRI of bilateral knees reveals complete rupture of the quadricep tendon just superior to the superior pole of the patella. no acute bony abnormalities. Assessment/Plan Assessment/Plan The patient is a 76 year old male with bilateral quadricep tendon ruptures. We discussed nonoperative versus operative treatment. Due to the disruption of his bilateral extensor mechanisms I am recommending surgical fixation. He understands the risks and benefits and would like to proceed with repair. We will plan for in the am NPO at midnight. LOI DOSHI MD Dec 03, 2016 16:09
[2016-12-03 19:00] VITALS: BP 148/54
[2016-12-03 23:00] VITALS: BP 137/65
[2016-12-04] VITALS (11 sets, daily range): BP systolic 121–160; BP diastolic 54–88
[2016-12-04] MEDS: IV NORMAL SALINE 1000ML BAG 1,000 ML IV SCH ×2 (01:05→17:46)
[2016-12-04] MEDS ORDERED: ONDANSETRON PF 4 MG/2 ML VIAL. IV PRN (07:00)
[2016-12-04] MEDS ORDERED: FENTANYL PF 100 MCG/2 ML VIAL. IV PRN (07:00)
[2016-12-04] MEDS ORDERED: LIDOCAINE 1% 1 ML SYRINGE. ID PRN (07:00)
[2016-12-04] MEDS ORDERED: PROCHLORPERAZINE 10 MG/2 ML VIAL. IV PRN (07:00)
[2016-12-04] MEDS ORDERED: IV RINGERS,LACTATED 1000ML 1,000 ML IV SCH (07:00)
[2016-12-04] MEDS ORDERED: MORPHINE SULFATE 2 MG/ML DISP.SYRIN. IV PRN (07:00)
[2016-12-04] MEDS ORDERED: HYDROMORPHONE 2 MG/ML VIAL. IV PRN (07:00)
[2016-12-04] MEDS ORDERED: BUPIVACAINE-EPI 0.25%-1:200000 MPF 30 ML VIAL. ONE ×2 (07:20→14:25)
[2016-12-04] MEDS: INSULIN ASPART 300 UNITS/3 ML INSULN.PEN SQ SCH ×3 (08:00→17:42)
[2016-12-04] MEDS: SENNOSIDES/DOCUSATE 8.6/50MG TABLET. PO SCH ×2 (09:00→21:00)
[2016-12-04] MEDS ORDERED: ENOXAPARIN 40 MG/0.4 ML SYRINGE. SQ SCH (09:00)
--- NOTE | 2016-12-04 09:24 | PDOC ---
PROGRESS NOTES Subjective Subjective No new complaints. Objective Objective Vital Signs Date Time Temp Pulse Resp B/P Pulse Ox O2 Delivery O2 Flow Rate FiO2 12/04/16 07:00 98.4 81 20 155/77 98 Room Air 98.4 Intake and Output 12/04/16 07:00 Intake Total 1670 ml Output Total 1800 ml Balance -130 ml Intake Oral 1670 ml Output Urine Total 1800 ml Physical Exam Physical Exam He is supine in bed and waiting for surgery.He is constipated for 3 days. Assessment Assessment Problems Medical Problems: (1) Contusion, knee Status: Acute (2) Fall from standing Status: Acute (3) Lumbar contusion Status: Acute Plan Plan of Care To get him up as tolerated after surgery tomorrow. Comment Review of Relevant I have reviewed the following items romi (where applicable) has been applied. Labs Laboratory Tests Test 12/02/16 10:57 12/02/16 16:15 12/02/16 21:21 12/03/16 06:05 Glucose (Fingerstick) 125mg/dL (70-99) 93mg/dL (70-99) 98mg/dL (70-99) Sodium Level 139mmol/L (136-145) Potassium Level 4.6mmol/L (3.5-5.1) Chloride Level 103mmol/L (98-107) Carbon Dioxide Level 28mmol/L (21-32) Anion Gap 8 (6-14) Blood Urea Nitrogen 21mg/dL (8-26) Creatinine 1.5mg/dL (0.7-1.3) Estimated GFR (Cockcroft-Gault) 54.9 Glucose Level 110mg/dL (70-99) Calcium Level 8.7mg/dL (8.5-10.1) Test 12/03/16 07:43 12/03/16 11:30 12/03/16 17:02 12/03/16 21:10 Glucose (Fingerstick) 118mg/dL (70-99) 128mg/dL (70-99) 116mg/dL (70-99) 111mg/dL (70-99) Test 12/04/16 07:45 Glucose (Fingerstick) 134mg/dL (70-99) Laboratory Tests Test 12/03/16 11:30 12/03/16 17:02 12/03/16 21:10 12/04/16 07:45 Glucose (Fingerstick) 128mg/dL (70-99) 116mg/dL (70-99) 111mg/dL (70-99) 134mg/dL (70-99) Medications Current Medications Tramadol HCl (Ultram) 50 mg 1X ONCE PO Last administered on 12/01/16 15:20; Start 12/01/16 at 15:30; Stop 12/01/16 at 15:31; Status DC Ondansetron HCl (Zofran) 4 mg PRN Q8HRS PRN IV NAUSEA/VOMITING; Start 12/01/16 at 16:30; Stop 12/02/16 at 16:29; Status DC Fentanyl Citrate (Fentanyl 2ml Vial) 50 mcg PRN Q2HR PRN IV PAIN; Start at 16:30; Stop 12/02/16 at 16:29; Status DC Insulin Aspart (Novolog) 0-5 UNITS TIDWMEALS SQ ; Start 12/01/16 at 17:00 Dextrose (Dextrose 50%-Water Syringe) 12.5 gm PRN Q15MIN PRN IV SEE COMMENTS; Start 12/01/16 at 16:30 Ibuprofen (Motrin) 400 mg PRN TID PRN PO INFLAMMATION Last administered on 12/02 13:10; Start 12/01/16 at 22:00 Acetaminophen/ Hydrocodone Bitart 1 tab 1 tab PRN Q4HRS PRN PO PAIN Last administered on 12/03/16 20:09; Start 12/02/16 at 15:30 Sodium Chloride (Iv Sodium Chloride 0.9% 1000ml Bag) 1,000 ml @ 75 mls/hr [id number] IV Last administered on 12/04/16 01:05; Start 12/03/16 at 12:45 Enoxaparin Sodium (Lovenox 40mg Syringe) 40 mg DAILY SQ ; Start 12/04/16 at 09: 00; Stop 12/04/16 at 09:00; Status DC Enoxaparin Sodium (Lovenox 40mg Syringe) 40 mg Q24H SQ Last administered on 15:30; Start 12/03/16 at 13:00 Ondansetron HCl (Zofran) 4 mg PRN Q6HRS PRN IV NAUSEA/VOMITING; Start 12/04/16 at 07:00; Stop 12/05/16 at 06:59 Fentanyl Citrate (Fentanyl 2ml Vial) 25 mcg PRN Q5MIN PRN IV MILD PAIN; Start 12/04/16 at 07:00; Stop 12/05/16 at 06:59 Fentanyl Citrate (Fentanyl 2ml Vial) 50 mcg PRN Q5MIN PRN IV MODERATE PAIN; Start 12/04/16 at 07:00; Stop 12/05/16 at 06:59 Morphine Sulfate 1 mg 1 mg PRN Q10MIN PRN IV SEVERE PAIN; Start 12/04/16 at 07: 00; Stop 12/05/16 at 06:59 Lactated Ringer's (Iv Lactated Ringers) 1,000 ml @ 30 mls/hr Q24H IV Last administered on 12/04/16 08:49; Start 12/04/16 at 07:00; Stop 12/04/16 at 18:59 Lidocaine HCl 2 ml PRN 1X PRN ID PRIOR TO IV START; Start 12/04/16 at 07:00; Stop 12/05/16 at 06:59 Hydromorphone HCl (Dilaudid) 0.5 mg PRN Q10MIN PRN IV SEV PAIN, Second choice; Start 12/04/16 at 07:00; Stop 12/05/16 at 06:59 Prochlorperazine Edisylate (Compazine) 5 mg PACU PRN PRN IV NAUSEA, MRX1; Start 12/04/16 at 07:00; Stop 12/05/16 at 06:59 Magnesium Hydroxide (Milk Of Magnesia) 2,400 mg PRN DAILY PRN PO CONSTIPATION; Start 12/03/16 at 15:00 Senna/Docusate Sodium (Senna Plus) 1 tab BID PO Last administered on 12/03/16 20:10; Start 12/03/16 at 15:00 Bupivacaine HCl/ Epinephrine Bitart (Sensorcaine-Epi 0.25%-1:620820 Mpf) 30 ml STK-MED ONCE .ROUTE ; Start 12/04/16 at 07:20; Stop 12/04/16 at 07:21; Status DC Active Scripts Active Ultram (Tramadol Hcl) 50 Mg Tablet 1 Tab PO Q6HRS PRN Vitals/I & O Vital Sign - Last 24 Hours 12/03/16 12/03/16 12/03/16 12/03/16 11:00 15:00 15:28 19:00 Temp 97.4 98.2 99.0 97.4 98.2 99.0 Pulse 88 84 80 Resp 22 18 20 B/P 137/62 121/61 148/54 Pulse Ox 98 98 98 O2 Delivery Room Air Room Air Room Air 12/03/16 12/03/16 12/03/16 12/03/16 20:00 20:09 21:32 23:00 Temp 98.1 98.1 Pulse 78 Resp 18 18 20 B/P 137/65 Pulse Ox 98 O2 Delivery Room Air Room Air Room Air Room Air 12/04/16 07:00 Temp 98.4 98.4 Pulse 81 Resp 20 B/P 155/77 Pulse Ox 98 O2 Delivery Room Air Intake and Output 12/03/16 12/03/16 12/04/16 15:00 23:00 07:00 Intake Total 1470 ml 200 ml Output Total 1200 ml 600 ml Balance 270 ml 200 ml -600 ml ANEUDY THURSTON MD Dec 04, 2016 09:24
[2016-12-04] MEDS ORDERED: SEVOFLURANE 61 TO 120 MINUTES. IH ONE (10:54)
[2016-12-04] MEDS ORDERED: PROPOFOL 20 ML IV ONE (10:55)
[2016-12-04] MEDS ORDERED: DEXAMETHASONE SOD PHOS 20 MG/5 ML VIAL. ONE (10:55)
[2016-12-04] MEDS ORDERED: FENTANYL PF 100 MCG/2 ML VIAL. ONE ×3 (10:55→14:13)
[2016-12-04] MEDS ORDERED: ONDANSETRON PF 4 MG/2 ML VIAL. ONE (10:56)
[2016-12-04] MEDS ORDERED: LIDOCAINE 2% 100 MG/5 ML SYRINGE. ONE (10:56)
[2016-12-04] MEDS ORDERED: ROCURONIUM 100 MG/10 ML VIAL. ONE (12:18)
[2016-12-04] MEDS ORDERED: GLYCOPYRROLATE 1 MG/5 ML VIAL. ONE (12:18)
[2016-12-04] MEDS ORDERED: NEOSTIGMINE METHYLSULFATE 5 MG/5 ML SYRINGE. ONE (12:18)
[2016-12-04] MEDS ORDERED: CEFAZOLIN 2GM PREMIX 50 ML IV ONE (12:41)
[2016-12-04] MEDS ORDERED: 0.9 % SODIUM CHLORIDE 50 ML VIAL. IJ ONE (13:06)
[2016-12-04] MEDS ORDERED: PHENYLEPHRINE 10 MG/ML VIAL. ONE (13:06)
--- NOTE | 2016-12-04 13:13 | PDOC ---
PROGRESS NOTES Chief Complaint Chief Complaint cc: fall A/P Fall at home Swelling of Right knee, Complete rupture of the distal right quadriceps tendon Complete/ near complete rupture of the distal left quadriceps tendon HTN Plan Pain control with [facility] plans today, PT/OT Monitor labs Fall precautions IV hydration Monitor renal functions DVT prophylaxis. History of Present Illness History of Present Illness seen before surgery pain is better at rest. . Vitals Vitals Vital Signs Date Time Temp Pulse Resp B/P Pulse Ox O2 Delivery O2 Flow Rate FiO2 12/04/16 12:24 98 85 20 142/65 97 Room Air 98.0 Physical Exam General: Alert, Oriented X3, Cooperative, No acute distress Heart: Normal S1, Normal S2 Lungs: Clear Abdomen: Soft Extremities: No clubbing Labs LABS Laboratory Tests Test 12/03/16 17:02 12/03/16 21:10 12/04/16 07:45 12/04/16 11:33 Glucose (Fingerstick) 116mg/dL (70-99) 111mg/dL (70-99) 134mg/dL (70-99) 124mg/dL (70-99) Assessment and Plan Assessmemt and Plan Problems Medical Problems: (1) Contusion, knee Status: Acute (2) Fall from standing Status: Acute (3) Lumbar contusion Status: Acute Problems: Comment Review of Relevant I have reviewed the following items romi (where applicable) has been applied. Labs Laboratory Tests Test 12/02/16 16:15 12/02/16 21:21 12/03/16 06:05 12/03/16 07:43 Glucose (Fingerstick) 93mg/dL (70-99) 98mg/dL (70-99) 118mg/dL (70-99) Sodium Level 139mmol/L (136-145) Potassium Level 4.6mmol/L (3.5-5.1) Chloride Level 103mmol/L (98-107) Carbon Dioxide Level 28mmol/L (21-32) Anion Gap 8 (6-14) Blood Urea Nitrogen 21mg/dL (8-26) Creatinine 1.5mg/dL (0.7-1.3) Estimated GFR (Cockcroft-Gault) 54.9 Glucose Level 110mg/dL (70-99) Calcium Level 8.7mg/dL (8.5-10.1) Test 12/03/16 11:30 12/03/16 17:02 12/03/16 21:10 12/04/16 07:45 Glucose (Fingerstick) 128mg/dL (70-99) 116mg/dL (70-99) 111mg/dL (70-99) 134mg/dL (70-99) Test 12/04/16 11:33 Glucose (Fingerstick) 124mg/dL (70-99) Laboratory Tests Test 12/03/16 17:02 12/03/16 21:10 12/04/16 07:45 12/04/16 11:33 Glucose (Fingerstick) 116mg/dL (70-99) 111mg/dL (70-99) 134mg/dL (70-99) 124mg/dL (70-99) Medications Current Medications Tramadol HCl (Ultram) 50 mg 1X ONCE PO Last administered on 12/01/16 15:20; Start 12/01/16 at 15:30; Stop 12/01/16 at 15:31; Status DC Ondansetron HCl (Zofran) 4 mg PRN Q8HRS PRN IV NAUSEA/VOMITING; Start 12/01/16 at 16:30; Stop 12/02/16 at 16:29; Status DC Fentanyl Citrate (Fentanyl 2ml Vial) 50 mcg PRN Q2HR PRN IV PAIN; Start at 16:30; Stop 12/02/16 at 16:29; Status DC Insulin Aspart (Novolog) 0-5 UNITS TIDWMEALS SQ ; Start 12/01/16 at 17:00 Dextrose (Dextrose 50%-Water Syringe) 12.5 gm PRN Q15MIN PRN IV SEE COMMENTS; Start 12/01/16 at 16:30 Ibuprofen (Motrin) 400 mg PRN TID PRN PO INFLAMMATION Last administered on 12/02 13:10; Start 12/01/16 at 22:00 Acetaminophen/ Hydrocodone Bitart 1 tab 1 tab PRN Q4HRS PRN PO PAIN Last administered on 12/03/16 20:09; Start 12/02/16 at 15:30 Sodium Chloride (Iv Sodium Chloride 0.9% 1000ml Bag) 1,000 ml @ 75 mls/hr [id number] IV Last administered on 12/04/16 01:05; Start 12/03/16 at 12:45 Enoxaparin Sodium (Lovenox 40mg Syringe) 40 mg DAILY SQ ; Start 12/04/16 at 09: 00; Stop 12/04/16 at 09:00; Status DC Enoxaparin Sodium (Lovenox 40mg Syringe) 40 mg Q24H SQ Last administered on 15:30; Start 12/03/16 at 13:00 Ondansetron HCl (Zofran) 4 mg PRN Q6HRS PRN IV NAUSEA/VOMITING; Start 12/04/16 at 07:00; Stop 12/05/16 at 06:59 Fentanyl Citrate (Fentanyl 2ml Vial) 25 mcg PRN Q5MIN PRN IV MILD PAIN; Start 12/04/16 at 07:00; Stop 12/05/16 at 06:59 Fentanyl Citrate (Fentanyl 2ml Vial) 50 mcg PRN Q5MIN PRN IV MODERATE PAIN; Start 12/04/16 at 07:00; Stop 12/05/16 at 06:59 Morphine Sulfate 1 mg 1 mg PRN Q10MIN PRN IV SEVERE PAIN; Start 12/04/16 at 07: 00; Stop 12/05/16 at 06:59 Lactated Ringer's (Iv Lactated Ringers) 1,000 ml @ 30 mls/hr Q24H IV Last administered on 12/04/16 08:49; Start 12/04/16 at 07:00; Stop 12/04/16 at 18:59 Lidocaine HCl 2 ml PRN 1X PRN ID PRIOR TO IV START; Start 12/04/16 at 07:00; Stop 12/05/16 at 06:59 Hydromorphone HCl (Dilaudid) 0.5 mg PRN Q10MIN PRN IV SEV PAIN, Second choice; Start 12/04/16 at 07:00; Stop 12/05/16 at 06:59 Prochlorperazine Edisylate (Compazine) 5 mg PACU PRN PRN IV NAUSEA, MRX1; Start 12/04/16 at 07:00; Stop 12/05/16 at 06:59 Magnesium Hydroxide (Milk Of Magnesia) 2,400 mg PRN DAILY PRN PO CONSTIPATION; Start 12/03/16 at 15:00 Senna/Docusate Sodium (Senna Plus) 1 tab BID PO Last administered on 12/03/16t 20:10; Start 12/03/16 at 15:00 Bupivacaine HCl/ Epinephrine Bitart (Sensorcaine-Epi 0.25%-1:487305 Mpf) 30 ml STK-MED ONCE .ROUTE ; Start 12/04/16 at 07:20; Stop 12/04/16 at 07:21; Status DC Sevoflurane (Ultane) 60 ml STK-MED ONCE IH ; Start 12/04/16 at 10:54; Stop 12/04 at 10:55; Status DC Fentanyl Citrate 100 mcg 100 mcg STK-MED ONCE .ROUTE ; Start 12/04/16 at 10:55; Stop 12/04/16 at 10:56; Status DC Propofol (Diprivan) 20 ml @ As Directed STK-MED ONCE IV ; Start 12/04/16 at 10: 55; Stop 12/04/16 at 10:56; Status DC Dexamethasone Sodium Phosphate (Decadron) 20 mg STK-MED ONCE .ROUTE ; Start at 10:55; Stop 12/04/16 at 10:56; Status DC Ondansetron HCl (Zofran) 4 mg STK-MED ONCE .ROUTE ; Start 12/04/16 at 10:56; Stop 12/04/16 at 10:57; Status DC Lidocaine HCl (Lidocaine HCl 2% Abboject) 100 mg STK-MED ONCE .ROUTE ; Start at 10:56; Stop 12/04/16 at 10:57; Status DC Rocuronium [place] (Zemuron) 100 mg STK-MED ONCE .ROUTE ; Start 12/04/16 at 12: 18; Stop 12/04/16 at 12:19; Status DC Glycopyrrolate (Robinul) 1 mg STK-MED ONCE .ROUTE ; Start 12/04/16 at 12:18; Stop 12/04/16 at 12:19; Status DC Neostigmine Methylsulfate 5 mg 5 mg STK-MED ONCE .ROUTE ; Start 12/04/16 at 12: 18; Stop 12/04/16 at 12:19; Status DC Cefazolin Sodium/ Dextrose (Ancef 2gm Premix) 50 ml @ As Directed STK-MED ONCE IV ; Start 12/04/16 at 12:41; Stop 12/04/16 at 12:42; Status DC Fentanyl Citrate (Fentanyl 2ml Vial) 100 mcg STK-MED ONCE .ROUTE ; Start at 13:01; Stop 12/04/16 at 13:02; Status DC Phenylephrine HCl (Alonzo-Synephrine Inj) 10 mg STK-MED ONCE .ROUTE ; Start at 13:06; Stop 12/04/16 at 13:07; Status DC Sodium Chloride (Sodium Chloride) 50 ml STK-MED ONCE IJ ; Start 12/04/16 at 13: 06; Stop 12/04/16 at 13:07; Status DC Active Scripts Active Ultram (Tramadol Hcl) 50 Mg Tablet 1 Tab PO Q6HRS PRN Vitals/I & O Vital Sign - Last 24 Hours 12/03/16 12/03/16 12/03/16 12/03/16 15:00 15:28 19:00 20:00 Temp 98.2 99.0 98.2 99.0 Pulse 84 80 Resp 18 20 B/P 121/61 148/54 Pulse Ox 98 98 O2 Delivery Room Air Room Air Room Air 12/03/16 12/03/16 12/03/16 12/04/16 20:09 21:32 23:00 07:00 Temp 98.1 98.4 98.1 98.4 Pulse 78 81 Resp 18 18 20 20 B/P 137/65 155/77 Pulse Ox 98 98 O2 Delivery Room Air Room Air Room Air Room Air 12/04/16 12/04/16 11:00 12:24 Temp 98.2 98 98.2 98.0 Pulse 133 85 Resp 20 20 B/P 160/78 142/65 Pulse Ox 96 97 O2 Delivery Room Air Room Air Intake and Output 12/03/16 12/03/16 12/04/16 14:59 22:59 06:59 Intake Total 1470 ml 200 ml Output Total 1200 ml 600 ml Balance 270 ml 200 ml -600 ml EDVIN REDMOND MD Dec 04, 2016 13:13
[2016-12-04] MEDS ORDERED: ROCURONIUM 50 MG/5 ML VIAL. ONE (13:19)
[2016-12-04] MEDS ORDERED: CEFAZOLIN 2GM PREMIX 50 ML IV SCH (14:00)
[2016-12-04] MEDS ORDERED: DESFLURANE > 120 MINUTES IH ONE (15:12)
[2016-12-04] MEDS: FENTANYL PF 100 MCG/2 ML VIAL. IV PRN ×2 (16:00→17:18)
[2016-12-04] MEDS: ENOXAPARIN 40 MG/0.4 ML SYRINGE. SQ SCH (17:35)
--- NOTE | 2016-12-04 20:00 | PDOC ---
BRIEF OPERATIVE NOTE Date: Dec 04, 2016 Pre-Op Diagnosis bilateral quadricep tendon rupture Post-Op Diagnosis same Procedure Performed Open repair of bilateral quadricep tendon ruptures. 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 complete quad tendon ruptures on bilateral knees just proximal to the patella. retinacular extensions medially and laterally. Right knee flexion to 40 degrees. Complications none Additional Remarks left tourniquet 50 minutes, right tourniquet 64 minutes. 2 #5 FW on left knee, 3 on the right 0 vicryl for retinaculum, 2-0 vicryl and 3-0 monocryl, fay for closure IROM on the right unlocked to 20 degrees flexion, left 45 degrees flexion ok to wbat bilateral lower ext. both sides were dry so no hv placed. LOI DOSHI MD Dec 04, 2016 19:59
[2016-12-04] MEDS: HYDROCODONE/APAP 5/325MG TABLET. PO PRN (21:54)
[2016-12-05] VITALS (7 sets, daily range): BP systolic 60–150; BP diastolic 65–97
[2016-12-05] MEDS: IV NORMAL SALINE 1000ML BAG 1,000 ML IV SCH (05:35)
[2016-12-05 06:47] LABS: CALCIUM 8.2 mg/dL (8.5-10.1); CREATININE 1.3 mg/dL (0.7-1.3); GFR 64.8; POTASSIUM 4.3 mmol/L (3.5-5.1)
[2016-12-05] MEDS: SENNOSIDES/DOCUSATE 8.6/50MG TABLET. PO SCH ×2 (07:57→20:44)
[2016-12-05] MEDS: INSULIN ASPART 300 UNITS/3 ML INSULN.PEN SQ SCH ×3 (08:00→16:54)
[2016-12-05] MEDS: HYDROCODONE/APAP 5/325MG TABLET. PO PRN ×3 (08:02→20:43)
--- NOTE | 2016-12-05 08:16 | PDOC ---
PROGRESS NOTES Subjective Subjective Problems overnight: no acute issues. pain well controlled on oral pain meds. wants to get up. Objective Vital Signs Vital Signs Date Time Temp Pulse Resp B/P Pulse Ox O2 Delivery O2 Flow Rate FiO2 12/05/16 08:02 18 97 Room Air 12/05/16 03:00 99.7 99 150/76 99.7 12/04/16 23:08 2.0 Physical Exam bilateral lower extremities in knee braces. nvi distally. dressing cdi. Labs Laboratory Tests Test 12/03/16 11:30 12/03/16 17:02 12/03/16 21:10 12/04/16 07:45 Glucose (Fingerstick) 128mg/dL (70-99) 116mg/dL (70-99) 111mg/dL (70-99) 134mg/dL (70-99) Test 12/04/16 11:33 12/04/16 15:52 12/04/16 17:32 12/04/16 22:03 Glucose (Fingerstick) 124mg/dL (70-99) 172mg/dL (70-99) 217mg/dL (70-99) 214mg/dL (70-99) Test 12/05/16 06:25 Sodium Level 140mmol/L (136-145) Potassium Level 4.3mmol/L (3.5-5.1) Chloride Level 104mmol/L (98-107) Carbon Dioxide Level 25mmol/L (21-32) Anion Gap 11 (6-14) Blood Urea Nitrogen 21mg/dL (8-26) Creatinine 1.3mg/dL (0.7-1.3) Estimated GFR (Cockcroft-Gault) 64.8 Glucose Level 161mg/dL (70-99) Calcium Level 8.2mg/dL (8.5-10.1) Laboratory Tests Test 12/04/16 11:33 12/04/16 15:52 12/04/16 17:32 12/04/16 22:03 Glucose (Fingerstick) 124mg/dL (70-99) 172mg/dL (70-99) 217mg/dL (70-99) 214mg/dL (70-99) Test 12/05/16 06:25 Sodium Level 140mmol/L (136-145) Potassium Level 4.3mmol/L (3.5-5.1) Chloride Level 104mmol/L (98-107) Carbon Dioxide Level 25mmol/L (21-32) Anion Gap 11 (6-14) Blood Urea Nitrogen 21mg/dL (8-26) Creatinine 1.3mg/dL (0.7-1.3) Estimated GFR (Cockcroft-Gault) 64.8 Glucose Level 161mg/dL (70-99) Calcium Level 8.2mg/dL (8.5-10.1) Assessment Assessment POD# 1 S/P bilateral quadricep tendon repair Problems: (1) Quadriceps tendon rupture Plan Plan of Care The patient is doing well needs to work with PT, can be wbat as tolerated bilaterally. if he is unable to ambulate with his braces as they are, you may lock them in extension. the left is allowing 45 of flexion, the right is 20 of flexion based on intraop exam. It is best if he walks in full extension, but is able to bend to those tolerances for things such as sitting and toileting. dvt ppx dc home when stable from a therapy standpoint. Problem Qualifiers (1) Quadriceps tendon rupture: Encounter type: initial encounter Laterality: unspecified laterality Qualified Code: S76.119A - Strain of unspecified quadriceps muscle, fascia and tendon, initial encounter LOI DOSHI MD Dec 05, 2016 08:16
--- NOTE | 2016-12-05 09:57 | PDOC ---
PROGRESS NOTES Subjective Subjective No new complaints but he had pain in his left knee while tring to help him to come to a sitting position at edge of bed. Objective Objective Vital Signs Date Time Temp Pulse Resp B/P Pulse Ox O2 Delivery O2 Flow Rate FiO2 12/05/16 09:02 97 Room Air 12/05/16 08:02 18 12/05/16 07:00 99.2 98 148/82 99.2 12/04/16 23:08 2.0 Intake and Output 12/05/16 06:59 Intake Total 3340 ml Output Total 1380 ml Balance 1960 ml Intake Oral 890 ml IV Total 2450 ml Output Urine Total 1360 ml Estimated Blood Loss 20 ml Physical Exam Physical Exam He is comfortable supine in bed with knee braces,which seems to be somewhat too tall for him and may need some trimming in the top.He requires significant help with donning and doffing his knee braces and with bed mobility and transfers. Assessment Assessment Problems Medical Problems: (1) Contusion, knee Status: Acute (2) Fall from standing Status: Acute (3) Lumbar contusion Status: Acute (4) Quadriceps tendon rupture Status: Acute Plan Plan of Care To consider transfer to SNF or acute rehab unit depending on his participation with therapy in the next few days as he had a flight of stairs to manage at home. Comment Review of Relevant I have reviewed the following items romi (where applicable) has been applied. Labs Laboratory Tests Test 12/03/16 11:30 12/03/16 17:02 12/03/16 21:10 12/04/16 07:45 Glucose (Fingerstick) 128mg/dL (70-99) 116mg/dL (70-99) 111mg/dL (70-99) 134mg/dL (70-99) Test 12/04/16 11:33 12/04/16 15:52 12/04/16 17:32 12/04/16 22:03 Glucose (Fingerstick) 124mg/dL (70-99) 172mg/dL (70-99) 217mg/dL (70-99) 214mg/dL (70-99) Test 12/05/16 06:25 Sodium Level 140mmol/L (136-145) Potassium Level 4.3mmol/L (3.5-5.1) Chloride Level 104mmol/L (98-107) Carbon Dioxide Level 25mmol/L (21-32) Anion Gap 11 (6-14) Blood Urea Nitrogen 21mg/dL (8-26) Creatinine 1.3mg/dL (0.7-1.3) Estimated GFR (Cockcroft-Gault) 64.8 Glucose Level 161mg/dL (70-99) Calcium Level 8.2mg/dL (8.5-10.1) Laboratory Tests Test 12/04/16 11:33 12/04/16 15:52 12/04/16 17:32 12/04/16 22:03 Glucose (Fingerstick) 124mg/dL (70-99) 172mg/dL (70-99) 217mg/dL (70-99) 214mg/dL (70-99) Test 12/05/16 06:25 Sodium Level 140mmol/L (136-145) Potassium Level 4.3mmol/L (3.5-5.1) Chloride Level 104mmol/L (98-107) Carbon Dioxide Level 25mmol/L (21-32) Anion Gap 11 (6-14) Blood Urea Nitrogen 21mg/dL (8-26) Creatinine 1.3mg/dL (0.7-1.3) Estimated GFR (Cockcroft-Gault) 64.8 Glucose Level 161mg/dL (70-99) Calcium Level 8.2mg/dL (8.5-10.1) Medications Current Medications Tramadol HCl (Ultram) 50 mg 1X ONCE PO Last administered on 12/01/16 15:20; Start 12/01/16 at 15:30; Stop 12/01/16 at 15:31; Status DC Ondansetron HCl (Zofran) 4 mg PRN Q8HRS PRN IV NAUSEA/VOMITING; Start 12/01/16 at 16:30; Stop 12/02/16 at 16:29; Status DC Fentanyl Citrate (Fentanyl 2ml Vial) 50 mcg PRN Q2HR PRN IV PAIN; Start at 16:30; Stop 12/02/16 at 16:29; Status DC Insulin Aspart (Novolog) 0-5 UNITS TIDWMEALS SQ Last administered on 12/05/16 08:00; Start 12/01/16 at 17:00 Dextrose (Dextrose 50%-Water Syringe) 12.5 gm PRN Q15MIN PRN IV SEE COMMENTS; Start 12/01/16 at 16:30 Ibuprofen (Motrin) 400 mg PRN TID PRN PO INFLAMMATION Last administered on 12/02 13:10; Start 12/01/16 at 22:00 Acetaminophen/ Hydrocodone Bitart 1 tab 1 tab PRN Q4HRS PRN PO PAIN Last administered on 12/05/16 08:02; Start 12/02/16 at 15:30 Sodium Chloride (Iv Sodium Chloride 0.9% 1000ml Bag) 1,000 ml @ 75 mls/hr [id number] IV Last administered on 12/05/16 05:35; Start 12/03/16 at 12:45 Enoxaparin Sodium (Lovenox 40mg Syringe) 40 mg DAILY SQ ; Start 12/04/16 at 09: 00; Stop 12/04/16 at 09:00; Status DC Enoxaparin Sodium (Lovenox 40mg Syringe) 40 mg Q24H SQ Last administered on 17:35; Start 12/03/16 at 13:00 Ondansetron HCl (Zofran) 4 mg PRN Q6HRS PRN IV NAUSEA/VOMITING; Start 12/04/16 at 07:00; Stop 12/05/16 at 06:59; Status DC Fentanyl Citrate (Fentanyl 2ml Vial) 25 mcg PRN Q5MIN PRN IV MILD PAIN; Start 12/04/16 at 07:00; Stop 12/05/16 at 06:59; Status DC Fentanyl Citrate (Fentanyl 2ml Vial) 50 mcg PRN Q5MIN PRN IV MODERATE PAIN Last administered on 12/04/16 17:18; Start 12/04/16 at 07:00; Stop 12/05/16 at 06:59; Status DC Morphine Sulfate 1 mg 1 mg PRN Q10MIN PRN IV SEVERE PAIN; Start 12/04/16 at 07: 00; Stop 12/05/16 at 06:59; Status DC Lactated Ringer's (Iv Lactated Ringers) 1,000 ml @ 30 mls/hr Q24H IV Last administered on 12/04/16 08:49; Start 12/04/16 at 07:00; Stop 12/04/16 at 18:59 ; Status DC Lidocaine HCl 2 ml PRN 1X PRN ID PRIOR TO IV START; Start 12/04/16 at 07:00; Stop 12/05/16 at 06:59; Status DC Hydromorphone HCl (Dilaudid) 0.5 mg PRN Q10MIN PRN IV SEV PAIN, Second choice; Start 12/04/16 at 07:00; Stop 12/05/16 at 06:59; Status DC Prochlorperazine Edisylate (Compazine) 5 mg PACU PRN PRN IV NAUSEA, MRX1; Start 12/04/16 at 07:00; Stop 12/05/16 at 06:59; Status DC Magnesium Hydroxide (Milk Of Magnesia) 2,400 mg PRN DAILY PRN PO CONSTIPATION; Start 12/03/16 at 15:00 Senna/Docusate Sodium (Senna Plus) 1 tab BID PO Last administered on 12/05/16t 07:57; Start 12/03/16 at 15:00 Bupivacaine HCl/ Epinephrine Bitart (Sensorcaine-Epi 0.25%-1:974373 Mpf) 30 ml STK-MED ONCE .ROUTE Last administered on 12/04/16t 14:37; Start 12/04/16 at 07: 20; Stop 12/04/16 at 07:21; Status DC Sevoflurane (Ultane) 60 ml STK-MED ONCE IH ; Start 12/04/16 at 10:54; Stop 12/04 at 10:55; Status DC Fentanyl Citrate 100 mcg 100 mcg STK-MED ONCE .ROUTE ; Start 12/04/16 at 10:55; Stop 12/04/16 at 10:56; Status DC Propofol (Diprivan) 20 ml @ As Directed STK-MED ONCE IV ; Start 12/04/16 at 10: 55; Stop 12/04/16 at 10:56; Status DC Dexamethasone Sodium Phosphate (Decadron) 20 mg STK-MED ONCE .ROUTE ; Start at 10:55; Stop 12/04/16 at 10:56; Status DC Ondansetron HCl (Zofran) 4 mg STK-MED ONCE .ROUTE ; Start 12/04/16 at 10:56; Stop 12/04/16 at 10:57; Status DC Lidocaine HCl (Lidocaine HCl 2% Abboject) 100 mg STK-MED ONCE .ROUTE ; Start at 10:56; Stop 12/04/16 at 10:57; Status DC Rocuronium [place] (Zemuron) 100 mg STK-MED ONCE .ROUTE ; Start 12/04/16 at 12: 18; Stop 12/04/16 at 12:19; Status DC Glycopyrrolate (Robinul) 1 mg STK-MED ONCE .ROUTE ; Start 12/04/16 at 12:18; Stop 12/04/16 at 12:19; Status DC Neostigmine Methylsulfate 5 mg 5 mg STK-MED ONCE .ROUTE ; Start 12/04/16 at 12: 18; Stop 12/04/16 at 12:19; Status DC Cefazolin Sodium/ Dextrose (Ancef 2gm Premix) 50 ml @ As Directed STK-MED ONCE IV ; Start 12/04/16 at 12:41; Stop 12/04/16 at 12:42; Status DC Fentanyl Citrate (Fentanyl 2ml Vial) 100 mcg STK-MED ONCE .ROUTE ; Start at 13:01; Stop 12/04/16 at 13:02; Status DC Phenylephrine HCl (Alonzo-Synephrine Inj) 10 mg STK-MED ONCE .ROUTE ; Start at 13:06; Stop 12/04/16 at 13:07; Status DC Sodium Chloride (Sodium Chloride) 50 ml STK-MED ONCE IJ ; Start 12/04/16 at 13: 06; Stop 12/04/16 at 13:07; Status DC Rocuronium [place] 50 mg 50 mg STK-MED ONCE .ROUTE ; Start 12/04/16 at 13:19; Stop 12/04/16 at 13:20; Status DC Cefazolin Sodium/ Dextrose (Ancef 2gm Premix) 50 ml @ 100 mls/hr 1X PREOP IV ; Start 12/04/16 at 14:00; Stop 12/05/16 at 18:00; Status UNV Fentanyl Citrate (Fentanyl 2ml Vial) 100 mcg STK-MED ONCE .ROUTE ; Start at 14:13; Stop 12/04/16 at 14:14; Status DC Bupivacaine HCl/ Epinephrine Bitart (Sensorcaine-Epi 0.25%-1:906406 Mpf) 30 ml STK-MED ONCE .ROUTE Last administered on 12/04/16t 14:37; Start 12/04/16 at 14: 25; Stop 12/04/16 at 14:26; Status DC Desflurane (Suprane) 90 ml STK-MED ONCE IH ; Start 12/04/16 at 15:12; Stop 12/04 at 15:13; Status DC Active Scripts Active Ultram (Tramadol Hcl) 50 Mg Tablet 1 Tab PO Q6HRS PRN Vitals/I & O Vital Sign - Last 24 Hours 12/04/16 12/04/16 12/04/16 12/04/16 11:00 12:24 15:38 15:53 Temp 98.2 98 98.7 98.2 98.0 98.7 Pulse 133 85 97 88 Resp 20 20 18 16 B/P 160/78 142/65 167/75 150/59 Pulse Ox 96 97 99 100 O2 Delivery Room Air Room Air Simple Mask Simple Mask O2 Flow Rate 10 10 12/04/16 12/04/16 12/04/16 12/04/16 16:00 16:10 16:10 16:25 Temp 98.7 98.7 98.7 98.7 Pulse 94 97 Resp 20 20 B/P 164/60 170/60 Pulse Ox 100 99 94 O2 Delivery Simple Mask Mask Simple Mask Room Air O2 Flow Rate 10.0 10. 10. 12/04/16 12/04/16 12/04/16 12/04/16 16:40 16:55 17:00 17:10 Temp 98.2 98.2 98.2 98.2 98.2 98.2 Pulse 96 94 98 Resp 20 20 20 B/P 147/60 167/68 149/66 Pulse Ox 92 90 94 94 O2 Delivery Room Air Room Air Nasal Cannula Nasal Cannula O2 Flow Rate 2.0 2 12/04/16 12/04/16 12/04/16 12/04/16 17:18 17:30 17:45 18:00 Pulse 101 104 105 Resp 20 B/P 147/65 142/71 151/88 Pulse Ox 94 O2 Delivery Nasal Cannula O2 Flow Rate 2.0 12/04/16 12/04/16 12/04/16 12/04/16 18:15 18:45 19:00 19:15 Temp 98.5 98.0 98.5 98.0 Pulse 103 105 86 111 Resp 20 B/P 154/70 160/60 121/54 132/64 Pulse Ox 96 95 O2 Delivery Room Air Room Air 12/04/16 12/04/16 12/04/16 12/04/16 20:08 20:15 21:54 22:45 Temp 99.7 99.7 Pulse 111 Resp 18 B/P 135/72 Pulse Ox 95 95 O2 Delivery Nasal Cannula Room Air Nasal Cannula O2 Flow Rate 2.0 2.0 2.0 12/04/16 12/04/16 12/05/16 12/05/16 23:00 23:08 03:00 07:00 Temp 99.2 99.7 99.2 99.2 99.7 99.2 Pulse 96 99 98 Resp B/P 128/71 150/76 148/82 Pulse Ox 98 97 98 O2 Delivery Room Air Nasal Cannula Room Air Room Air O2 Flow Rate 2.0 12/05/16 12/05/16 08:02 09:02 Resp 18 Pulse Ox 97 97 O2 Delivery Room Air Room Air Intake and Output 12/04/16 12/04/16 12/05/16 14:59 22:59 06:59 Intake Total 50 ml 1670 ml 1620 ml Output Total 980 ml 400 ml Balance 50 ml 690 ml 1220 ml ANEUDY THURSTON MD Dec 05, 2016 09:57
[2016-12-05] MEDS: IBUPROFEN 400 MG TABLET. PO PRN (12:08)
[2016-12-05] MEDS: ENOXAPARIN 40 MG/0.4 ML SYRINGE. SQ SCH (12:09)
--- NOTE | 2016-12-05 13:21 | PDOC ---
PROGRESS NOTES Chief Complaint Chief Complaint cc: fall A/P Fall at home Swelling of Right knee, Complete rupture of the distal right quadriceps tendon S /P bilateral quadriceps tendon repair Complete/ near complete rupture of the distal left quadriceps tendon HTN DM Plan Pain control with F[place] Levemir with Meal dose NovoLog. PT/OT, rehab needs based on PT recommendatons. Monitor labs Fall precautions labs reviewed, better. DVT prophylaxis. History of Present Illness History of Present Illness doing better no pain Vitals Vitals Vital Signs Date Time Temp Pulse Resp B/P Pulse Ox O2 Delivery O2 Flow Rate FiO2 12/05/16 13:09 18 97 Room Air 12/05/16 11:00 97.9 79 136/65 97.9 12/04/16 23:08 2.0 Physical Exam General: Alert, Oriented X3, Cooperative, No acute distress Heart: Normal S1, Normal S2 Lungs: Clear Abdomen: Soft Extremities: No clubbing Labs LABS Laboratory Tests Test 12/04/16 15:52 12/04/16 17:32 12/04/16 22:03 12/05/16 06:25 Glucose (Fingerstick) 172mg/dL (70-99) 217mg/dL (70-99) 214mg/dL (70-99) Sodium Level 140mmol/L (136-145) Potassium Level 4.3mmol/L (3.5-5.1) Chloride Level 104mmol/L (98-107) Carbon Dioxide Level 25mmol/L (21-32) Anion Gap 11 (6-14) Blood Urea Nitrogen 21mg/dL (8-26) Creatinine 1.3mg/dL (0.7-1.3) Estimated GFR (Cockcroft-Gault) 64.8 Glucose Level 161mg/dL (70-99) Calcium Level 8.2mg/dL (8.5-10.1) Test 12/05/16 07:12 12/05/16 11:19 Glucose (Fingerstick) 154mg/dL (70-99) 178mg/dL (70-99) Assessment and Plan Assessmemt and Plan Problems Medical Problems: (1) Contusion, knee Status: Acute (2) Fall from standing Status: Acute (3) Lumbar contusion Status: Acute (4) Quadriceps tendon rupture Status: Acute Problems: Comment Review of Relevant I have reviewed the following items romi (where applicable) has been applied. Labs Laboratory Tests Test 12/03/16 17:02 12/03/16 21:10 12/04/16 07:45 12/04/16 11:33 Glucose (Fingerstick) 116mg/dL (70-99) 111mg/dL (70-99) 134mg/dL (70-99) 124mg/dL (70-99) Test 12/04/16 15:52 12/04/16 17:32 12/04/16 22:03 12/05/16 06:25 Glucose (Fingerstick) 172mg/dL (70-99) 217mg/dL (70-99) 214mg/dL (70-99) Sodium Level 140mmol/L (136-145) Potassium Level 4.3mmol/L (3.5-5.1) Chloride Level 104mmol/L (98-107) Carbon Dioxide Level 25mmol/L (21-32) Anion Gap 11 (6-14) Blood Urea Nitrogen 21mg/dL (8-26) Creatinine 1.3mg/dL (0.7-1.3) Estimated GFR (Cockcroft-Gault) 64.8 Glucose Level 161mg/dL (70-99) Calcium Level 8.2mg/dL (8.5-10.1) Test 12/05/16 07:12 12/05/16 11:19 Glucose (Fingerstick) 154mg/dL (70-99) 178mg/dL (70-99) Laboratory Tests Test 12/04/16 15:52 12/04/16 17:32 12/04/16 22:03 12/05/16 06:25 Glucose (Fingerstick) 172mg/dL (70-99) 217mg/dL (70-99) 214mg/dL (70-99) Sodium Level 140mmol/L (136-145) Potassium Level 4.3mmol/L (3.5-5.1) Chloride Level 104mmol/L (98-107) Carbon Dioxide Level 25mmol/L (21-32) Anion Gap 11 (6-14) Blood Urea Nitrogen 21mg/dL (8-26) Creatinine 1.3mg/dL (0.7-1.3) Estimated GFR (Cockcroft-Gault) 64.8 Glucose Level 161mg/dL (70-99) Calcium Level 8.2mg/dL (8.5-10.1) Test 12/05/16 07:12 12/05/16 11:19 Glucose (Fingerstick) 154mg/dL (70-99) 178mg/dL (70-99) Medications Current Medications Tramadol HCl (Ultram) 50 mg 1X ONCE PO Last administered on 12/01/16 15:20; Start 12/01/16 at 15:30; Stop 12/01/16 at 15:31; Status DC Ondansetron HCl (Zofran) 4 mg PRN Q8HRS PRN IV NAUSEA/VOMITING; Start 12/01/16 at 16:30; Stop 12/02/16 at 16:29; Status DC Fentanyl Citrate (Fentanyl 2ml Vial) 50 mcg PRN Q2HR PRN IV PAIN; Start at 16:30; Stop 12/02/16 at 16:29; Status DC Insulin Aspart (Novolog) 0-5 UNITS TIDWMEALS SQ Last administered on 12/05/16 12:13; Start 12/01/16 at 17:00 Dextrose (Dextrose 50%-Water Syringe) 12.5 gm PRN Q15MIN PRN IV SEE COMMENTS; Start 12/01/16 at 16:30 Ibuprofen (Motrin) 400 mg PRN TID PRN PO INFLAMMATION Last administered on 12/05 12:08; Start 12/01/16 at 22:00 Acetaminophen/ Hydrocodone Bitart 1 tab 1 tab PRN Q4HRS PRN PO PAIN Last administered on 12/05/16 12:09; Start 12/02/16 at 15:30 Sodium Chloride (Iv Sodium Chloride 0.9% 1000ml Bag) 1,000 ml @ 75 mls/hr [id number] IV Last administered on 12/05/16 05:35; Start 12/03/16 at 12:45 Enoxaparin Sodium (Lovenox 40mg Syringe) 40 mg DAILY SQ ; Start 12/04/16 at 09: 00; Stop 12/04/16 at 09:00; Status DC Enoxaparin Sodium (Lovenox 40mg Syringe) 40 mg Q24H SQ Last administered on 12:09; Start 12/03/16 at 13:00 Ondansetron HCl (Zofran) 4 mg PRN Q6HRS PRN IV NAUSEA/VOMITING; Start 12/04/16 at 07:00; Stop 12/05/16 at 06:59; Status DC Fentanyl Citrate (Fentanyl 2ml Vial) 25 mcg PRN Q5MIN PRN IV MILD PAIN; Start 12/04/16 at 07:00; Stop 12/05/16 at 06:59; Status DC Fentanyl Citrate (Fentanyl 2ml Vial) 50 mcg PRN Q5MIN PRN IV MODERATE PAIN Last administered on 12/04/16 17:18; Start 12/04/16 at 07:00; Stop 12/05/16 at 06:59; Status DC Morphine Sulfate 1 mg 1 mg PRN Q10MIN PRN IV SEVERE PAIN; Start 12/04/16 at 07: 00; Stop 12/05/16 at 06:59; Status DC Lactated Ringer's (Iv Lactated Ringers) 1,000 ml @ 30 mls/hr Q24H IV Last administered on 12/04/16 08:49; Start 12/04/16 at 07:00; Stop 12/04/16 at 18:59 ; Status DC Lidocaine HCl 2 ml PRN 1X PRN ID PRIOR TO IV START; Start 12/04/16 at 07:00; Stop 12/05/16 at 06:59; Status DC Hydromorphone HCl (Dilaudid) 0.5 mg PRN Q10MIN PRN IV SEV PAIN, Second choice; Start 12/04/16 at 07:00; Stop 12/05/16 at 06:59; Status DC Prochlorperazine Edisylate (Compazine) 5 mg PACU PRN PRN IV NAUSEA, MRX1; Start 12/04/16 at 07:00; Stop 12/05/16 at 06:59; Status DC Magnesium Hydroxide (Milk Of Magnesia) 2,400 mg PRN DAILY PRN PO CONSTIPATION; Start 12/03/16 at 15:00 Senna/Docusate Sodium (Senna Plus) 1 tab BID PO Last administered on 12/05/16 07:57; Start 12/03/16 at 15:00 Bupivacaine HCl/ Epinephrine Bitart (Sensorcaine-Epi 0.25%-1:224941 Mpf) 30 ml AllofMe-MED ONCE .ROUTE Last administered on 12/04/16t 14:37; Start 12/04/16 at 07: 20; Stop 12/04/16 at 07:21; Status DC Sevoflurane (Ultane) 60 ml STK-MED ONCE IH ; Start 12/04/16 at 10:54; Stop 12/04 at 10:55; Status DC Fentanyl Citrate 100 mcg 100 mcg STK-MED ONCE .ROUTE ; Start 12/04/16 at 10:55; Stop 12/04/16 at 10:56; Status DC Propofol (Diprivan) 20 ml @ As Directed STK-MED ONCE IV ; Start 12/04/16 at 10: 55; Stop 12/04/16 at 10:56; Status DC Dexamethasone Sodium Phosphate (Decadron) 20 mg STK-MED ONCE .ROUTE ; Start at 10:55; Stop 12/04/16 at 10:56; Status DC Ondansetron HCl (Zofran) 4 mg STK-MED ONCE .ROUTE ; Start 12/04/16 at 10:56; Stop 12/04/16 at 10:57; Status DC Lidocaine HCl (Lidocaine HCl 2% Abboject) 100 mg STK-MED ONCE .ROUTE ; Start at 10:56; Stop 12/04/16 at 10:57; Status DC Rocuronium [place] (Zemuron) 100 mg STK-MED ONCE .ROUTE ; Start 12/04/16 at 12: 18; Stop 12/04/16 at 12:19; Status DC Glycopyrrolate (Robinul) 1 mg STK-MED ONCE .ROUTE ; Start 12/04/16 at 12:18; Stop 12/04/16 at 12:19; Status DC Neostigmine Methylsulfate 5 mg 5 mg STK-MED ONCE .ROUTE ; Start 12/04/16 at 12: 18; Stop 12/04/16 at 12:19; Status DC Cefazolin Sodium/ Dextrose (Ancef 2gm Premix) 50 ml @ As Directed STK-MED ONCE IV ; Start 12/04/16 at 12:41; Stop 12/04/16 at 12:42; Status DC Fentanyl Citrate (Fentanyl 2ml Vial) 100 mcg STK-MED ONCE .ROUTE ; Start at 13:01; Stop 12/04/16 at 13:02; Status DC Phenylephrine HCl (Alonzo-Synephrine Inj) 10 mg STK-MED ONCE .ROUTE ; Start at 13:06; Stop 12/04/16 at 13:07; Status DC Sodium Chloride (Sodium Chloride) 50 ml STK-MED ONCE IJ ; Start 12/04/16 at 13: 06; Stop 12/04/16 at 13:07; Status DC Rocuronium [place] 50 mg 50 mg STK-MED ONCE .ROUTE ; Start 12/04/16 at 13:19; Stop 12/04/16 at 13:20; Status DC Cefazolin Sodium/ Dextrose (Ancef 2gm Premix) 50 ml @ 100 mls/hr 1X PREOP IV ; Start 12/04/16 at 14:00; Stop 12/05/16 at 18:00; Status UNV Fentanyl Citrate (Fentanyl 2ml Vial) 100 mcg STK-MED ONCE .ROUTE ; Start at 14:13; Stop 12/04/16 at 14:14; Status DC Bupivacaine HCl/ Epinephrine Bitart (Sensorcaine-Epi 0.25%-1:570580 Mpf) 30 ml STK-MED ONCE .ROUTE Last administered on 12/04/16t 14:37; Start 12/04/16 at 14: 25; Stop 12/04/16 at 14:26; Status DC Desflurane (Suprane) 90 ml STK-MED ONCE IH ; Start 12/04/16 at 15:12; Stop 12/04 at 15:13; Status DC Active Scripts Active Ultram (Tramadol Hcl) 50 Mg Tablet 1 Tab PO Q6HRS PRN Vitals/I & O Vital Sign - Last 24 Hours 12/04/16 12/04/16 12/04/16 12/04/16 15:38 15:53 16:00 16:10 Temp 98.7 98.7 Pulse 97 88 Resp 18 16 B/P 167/75 150/59 Pulse Ox 99 100 100 O2 Delivery Simple Mask Simple Mask Simple Mask Mask O2 Flow Rate 10 10 10.0 10. 12/04/16 12/04/16 12/04/16 12/04/16 16:10 16:25 16:40 16:55 Temp 98.7 98.7 98.2 98.2 98.7 98.7 98.2 98.2 Pulse 94 97 96 94 Resp 20 20 20 20 B/P 164/60 170/60 147/60 167/68 Pulse Ox 99 94 92 90 O2 Delivery Simple Mask Room Air Room Air Room Air O2 Flow Rate 10. 12/04/16 12/04/16 12/04/16 12/04/16 17:00 17:10 17:18 17:30 Temp 98.2 98.2 Pulse 98 101 Resp 20 20 B/P 149/66 147/65 Pulse Ox 94 94 94 O2 Delivery Nasal Cannula Nasal Cannula Nasal Cannula O2 Flow Rate 2.0 2 2.0 12/04/16 12/04/16 12/04/16 12/04/16 17:45 18:00 18:15 18:45 Pulse 104 105 103 105 B/P 142/71 151/88 154/70 160/60 12/04/16 12/04/16 12/04/16 12/04/16 19:00 19:15 20:08 20:15 Temp 98.5 98.0 99.7 98.5 98.0 99.7 Pulse 86 111 111 Resp 20 20 20 B/P 121/54 132/64 135/72 Pulse Ox 96 95 95 O2 Delivery Room Air Room Air Nasal Cannula Room Air O2 Flow Rate 2.0 12/04/16 12/04/16 12/04/16 12/04/16 21:54 22:45 23:00 23:08 Temp 99.2 99.2 Pulse 96 Resp 18 20 B/P 128/71 Pulse Ox 95 98 O2 Delivery Nasal Cannula Room Air Nasal Cannula O2 Flow Rate 2.0 2.0 2.0 12/05/16 12/05/16 12/05/16 12/05/16 03:00 07:00 07:30 08:02 Temp 99.7 99.2 99.7 99.2 Pulse 99 98 Resp 20 22 18 B/P 150/76 148/82 Pulse Ox 97 98 97 O2 Delivery Room Air Room Air Room Air Room Air 12/05/16 12/05/16 12/05/16 11:00 12:09 13:09 Temp 97.9 97.9 Pulse 79 Resp 20 18 18 B/P 136/65 Pulse Ox 97 97 97 O2 Delivery Room Air Room Air Room Air Intake and Output 12/04/16 12/04/16 12/05/16 15:00 23:00 07:00 Intake Total 50 ml 1670 ml 1620 ml Output Total 980 ml 400 ml Balance 50 ml 690 ml 1220 ml EDVIN REDMOND MD Dec 05, 2016 13:21
[2016-12-05] MEDS ORDERED: INSU100C4 SQ (18:40)
[2016-12-05] MEDS ORDERED: INSU100V13 SQ (18:40)
[2016-12-05] MEDS: INSULIN DETEMIR 300 UNITS/3 ML INSULN.PEN. SQ SCH (22:12)
[2016-12-06 03:59] VITALS: BP 148/53
[2016-12-06] MEDS: HYDROCODONE/APAP 5/325MG TABLET. PO PRN ×2 (04:20→12:40)
[2016-12-06 07:00] VITALS: BP 140/80
[2016-12-06] MEDS: SENNOSIDES/DOCUSATE 8.6/50MG TABLET. PO SCH ×2 (07:58→20:38)
[2016-12-06] MEDS: INSULIN ASPART 300 UNITS/3 ML INSULN.PEN SQ SCH ×3 (07:59→17:01)
[2016-12-06 11:00] VITALS: BP 120/70
--- NOTE | 2016-12-06 11:46 | PDOC ---
PROGRESS NOTES Chief Complaint Chief Complaint cc: fall A/P Fall at home Swelling of Right knee, Complete rupture of the distal right quadriceps tendon S /P bilateral quadriceps tendon repair on 12/04/16, Complete/ near complete rupture of the distal left quadriceps tendon HTN stable. DM stable. Plan Pain control with [place] Levemir with Meal dose NovoLog. PT/OT,. Monitor labs Fall precautions labs reviewed, better. DVT prophylaxis. SNU placement when bed is ready History of Present Illness History of Present Illness doing better no pain Vitals Vitals Vital Signs Date Time Temp Pulse Resp B/P Pulse Ox O2 Delivery O2 Flow Rate FiO2 12/06/16 07:30 Room Air 12/06/16 07:00 98.6 86 24 140/80 98 98.6 12/05/16 21:43 2.0 Physical Exam General: Alert, Oriented X3, Cooperative, No acute distress Heart: Normal S1, Normal S2 Lungs: Clear Abdomen: Soft Extremities: No clubbing Labs LABS Laboratory Tests Test 12/05/16 16:52 12/05/16 21:38 12/06/16 07:35 12/06/16 11:18 Glucose (Fingerstick) 235mg/dL (70-99) 152mg/dL (70-99) 155mg/dL (70-99) 137mg/dL (70-99) Assessment and Plan Assessmemt and Plan Problems Medical Problems: (1) Contusion, knee Status: Acute (2) Fall from standing Status: Acute (3) Lumbar contusion Status: Acute (4) Quadriceps tendon rupture Status: Acute Problems: Comment Review of Relevant I have reviewed the following items romi (where applicable) has been applied. Labs Laboratory Tests Test 12/04/16 15:52 12/04/16 17:32 12/04/16 22:03 12/05/16 06:25 Glucose (Fingerstick) 172mg/dL (70-99) 217mg/dL (70-99) 214mg/dL (70-99) Sodium Level 140mmol/L (136-145) Potassium Level 4.3mmol/L (3.5-5.1) Chloride Level 104mmol/L (98-107) Carbon Dioxide Level 25mmol/L (21-32) Anion Gap 11 (6-14) Blood Urea Nitrogen 21mg/dL (8-26) Creatinine 1.3mg/dL (0.7-1.3) Estimated GFR (Cockcroft-Gault) 64.8 Glucose Level 161mg/dL (70-99) Calcium Level 8.2mg/dL (8.5-10.1) Test 12/05/16 07:12 12/05/16 11:19 12/05/16 16:52 12/05/16 21:38 Glucose (Fingerstick) 154mg/dL (70-99) 178mg/dL (70-99) 235mg/dL (70-99) 152mg/dL (70-99) Test 12/06/16 07:35 12/06/16 11:18 Glucose (Fingerstick) 155mg/dL (70-99) 137mg/dL (70-99) Laboratory Tests Test 12/05/16 16:52 12/05/16 21:38 12/06/16 07:35 12/06/16 11:18 Glucose (Fingerstick) 235mg/dL (70-99) 152mg/dL (70-99) 155mg/dL (70-99) 137mg/dL (70-99) Medications Current Medications Tramadol HCl (Ultram) 50 mg 1X ONCE PO Last administered on 12/01/16 15:20; Start 12/01/16 at 15:30; Stop 12/01/16 at 15:31; Status DC Ondansetron HCl (Zofran) 4 mg PRN Q8HRS PRN IV NAUSEA/VOMITING; Start 12/01/16 at 16:30; Stop 12/02/16 at 16:29; Status DC Fentanyl Citrate (Fentanyl 2ml Vial) 50 mcg PRN Q2HR PRN IV PAIN; Start at 16:30; Stop 12/02/16 at 16:29; Status DC Insulin Aspart (Novolog) 0-5 UNITS TIDWMEALS SQ Last administered on 12/05/16 12:13; Start 12/01/16 at 17:00; Stop 12/05/16 at 13:24; Status DC Dextrose (Dextrose 50%-Water Syringe) 12.5 gm PRN Q15MIN PRN IV SEE COMMENTS; Start 12/01/16 at 16:30 Ibuprofen (Motrin) 400 mg PRN TID PRN PO INFLAMMATION Last administered on 12/05 12:08; Start 12/01/16 at 22:00 Acetaminophen/ Hydrocodone Bitart 1 tab 1 tab PRN Q4HRS PRN PO PAIN Last administered on 12/06/16 04:20; Start 12/02/16 at 15:30 Sodium Chloride (Iv Sodium Chloride 0.9% 1000ml Bag) 1,000 ml @ 75 mls/hr [id number] IV Last administered on 12/05/16 05:35; Start 12/03/16 at 12:45; Stop 12/05/16 at 13:57; Status DC Enoxaparin Sodium (Lovenox 40mg Syringe) 40 mg DAILY SQ ; Start 12/04/16 at 09: 00; Stop 12/04/16 at 09:00; Status DC Enoxaparin Sodium (Lovenox 40mg Syringe) 40 mg Q24H SQ Last administered on 12:09; Start 12/03/16 at 13:00 Ondansetron HCl (Zofran) 4 mg PRN Q6HRS PRN IV NAUSEA/VOMITING; Start 12/04/16 at 07:00; Stop 12/05/16 at 06:59; Status DC Fentanyl Citrate (Fentanyl 2ml Vial) 25 mcg PRN Q5MIN PRN IV MILD PAIN; Start 12/04/16 at 07:00; Stop 12/05/16 at 06:59; Status DC Fentanyl Citrate (Fentanyl 2ml Vial) 50 mcg PRN Q5MIN PRN IV MODERATE PAIN Last administered on 12/04/16 17:18; Start 12/04/16 at 07:00; Stop 12/05/16 at 06:59; Status DC Morphine Sulfate 1 mg 1 mg PRN Q10MIN PRN IV SEVERE PAIN; Start 12/04/16 at 07: 00; Stop 12/05/16 at 06:59; Status DC Lactated Ringer's (Iv Lactated Ringers) 1,000 ml @ 30 mls/hr Q24H IV Last administered on 12/04/16 08:49; Start 12/04/16 at 07:00; Stop 12/04/16 at 18:59 ; Status DC Lidocaine HCl 2 ml PRN 1X PRN ID PRIOR TO IV START; Start 12/04/16 at 07:00; Stop 12/05/16 at 06:59; Status DC Hydromorphone HCl (Dilaudid) 0.5 mg PRN Q10MIN PRN IV SEV PAIN, Second choice; Start 12/04/16 at 07:00; Stop 12/05/16 at 06:59; Status DC Prochlorperazine Edisylate (Compazine) 5 mg PACU PRN PRN IV NAUSEA, MRX1; Start 12/04/16 at 07:00; Stop 12/05/16 at 06:59; Status DC Magnesium Hydroxide (Milk Of Magnesia) 2,400 mg PRN DAILY PRN PO CONSTIPATION; Start 12/03/16 at 15:00 Senna/Docusate Sodium (Senna Plus) 1 tab BID PO Last administered on 12/06/16 07:58; Start 12/03/16 at 15:00 Bupivacaine HCl/ Epinephrine Bitart (Sensorcaine-Epi 0.25%-1:495886 Mpf) 30 ml STK-MED ONCE .ROUTE Last administered on 12/04/16 14:37; Start 12/04/16 at 07: 20; Stop 12/04/16 at 07:21; Status DC Sevoflurane (Ultane) 60 ml STK-MED ONCE IH ; Start 12/04/16 at 10:54; Stop 12/04 at 10:55; Status DC Fentanyl Citrate 100 mcg 100 mcg STK-MED ONCE .ROUTE ; Start 12/04/16 at 10:55; Stop 12/04/16 at 10:56; Status DC Propofol (Diprivan) 20 ml @ As Directed STK-MED ONCE IV ; Start 12/04/16 at 10: 55; Stop 12/04/16 at 10:56; Status DC Dexamethasone Sodium Phosphate (Decadron) 20 mg STK-MED ONCE .ROUTE ; Start at 10:55; Stop 12/04/16 at 10:56; Status DC Ondansetron HCl (Zofran) 4 mg STK-MED ONCE .ROUTE ; Start 12/04/16 at 10:56; Stop 12/04/16 at 10:57; Status DC Lidocaine HCl (Lidocaine HCl 2% Abboject) 100 mg STK-MED ONCE .ROUTE ; Start at 10:56; Stop 12/04/16 at 10:57; Status DC Rocuronium [place] (Zemuron) 100 mg STK-MED ONCE .ROUTE ; Start 12/04/16 at 12: 18; Stop 12/04/16 at 12:19; Status DC Glycopyrrolate (Robinul) 1 mg STK-MED ONCE .ROUTE ; Start 12/04/16 at 12:18; Stop 12/04/16 at 12:19; Status DC Neostigmine Methylsulfate 5 mg 5 mg STK-MED ONCE .ROUTE ; Start 12/04/16 at 12: 18; Stop 12/04/16 at 12:19; Status DC Cefazolin Sodium/ Dextrose (Ancef 2gm Premix) 50 ml @ As Directed STK-MED ONCE IV ; Start 12/04/16 at 12:41; Stop 12/04/16 at 12:42; Status DC Fentanyl Citrate (Fentanyl 2ml Vial) 100 mcg STK-MED ONCE .ROUTE ; Start at 13:01; Stop 12/04/16 at 13:02; Status DC Phenylephrine HCl ([place]zo-Synephrine Inj) 10 mg STK-MED ONCE .ROUTE ; Start at 13:06; Stop 12/04/16 at 13:07; Status DC Sodium Chloride (Sodium Chloride) 50 ml STK-MED ONCE IJ ; Start 12/04/16 at 13: 06; Stop 12/04/16 at 13:07; Status DC Rocuronium [place] 50 mg 50 mg STK-MED ONCE .ROUTE ; Start 12/04/16 at 13:19; Stop 12/04/16 at 13:20; Status DC Cefazolin Sodium/ Dextrose (Ancef 2gm Premix) 50 ml @ 100 mls/hr 1X PREOP IV ; Start 12/04/16 at 14:00; Stop 12/05/16 at 18:00; Status UNV Fentanyl Citrate (Fentanyl 2ml Vial) 100 mcg STK-MED ONCE .ROUTE ; Start at 14:13; Stop 12/04/16 at 14:14; Status DC Bupivacaine HCl/ Epinephrine Bitart (Sensorcaine-Epi 0.25%-1:964770 Mpf) 30 ml STK-MED ONCE .ROUTE Last administered on 12/04/16t 14:37; Start 12/04/16 at 14: 25; Stop 12/04/16 at 14:26; Status DC Desflurane (Suprane) 90 ml STK-MED ONCE IH ; Start 12/04/16 at 15:12; Stop 12/04 at 15:13; Status DC Insulin Aspart (Novolog) 8 units TIDAC SQ Last administered on 12/06/16 11:35 ; Start 12/05/16 at 16:30 Insulin Detemir (Levemir) 16 units QHS SQ Last administered on 12/05/16 22:12 ; Start 12/05/16 at 21:00 Active Scripts Active Ultram (Tramadol Hcl) 50 Mg Tablet 1 Tab PO Q6HRS PRN Reported Novolog (Insulin Aspart) 100 Unit/1 Ml Cartridge 8 Unit SQ TIDAC Levemir (Insulin Detemir) 100 Unit/1 Ml Vial 16 Unit SQ HS Vitals/I & O Vital Sign - Last 24 Hours 12/05/16 12/05/16 12/05/16 12/05/16 12:09 13:09 15:00 15:01 Temp 98.0 98.0 Pulse 99 Resp 18 18 24 B/P 60/ 140/72 Pulse Ox 97 98 O2 Delivery Room Air Room Air 12/05/16 12/05/16 12/05/16 12/05/16 19:59 20:00 20:43 21:43 Temp 99.0 99.0 Pulse 86 Resp 18 16 B/P 139/67 Pulse Ox 93 93 O2 Delivery Room Air Nasal Cannula O2 Flow Rate 2.0 2.0 12/05/16 12/06/16 12/06/16 12/06/16 23:00 03:59 04:20 05:20 Temp 99.1 100.4 99.1 100.4 Pulse 85 91 Resp 18 18 B/P 141/97 148/53 Pulse Ox 97 96 O2 Delivery Room Air Room Air Room Air Room Air 12/06/16 12/06/16 07:00 07:30 Temp 98.6 98.6 Pulse 86 Resp 24 B/P 140/80 Pulse Ox 98 O2 Delivery Room Air Room Air Intake and Output 12/05/16 12/05/16 12/06/16 15:00 23:00 07:00 Intake Total 360 ml 680 ml Output Total 2030 ml 1450 ml Balance 360 ml -1350 ml -1450 ml EDVIN REDMOND MD Dec 06, 2016 11:46
[2016-12-06] MEDS: ENOXAPARIN 40 MG/0.4 ML SYRINGE. SQ SCH (12:40)
[2016-12-06] MEDS: IBUPROFEN 400 MG TABLET. PO PRN (12:40)
[2016-12-06 15:00] VITALS: BP 113/63
--- NOTE | 2016-12-06 16:48 | PDOC ---
PROGRESS NOTES Subjective Subjective Problems overnight: no acute issues. pain is well controlled. worked with PT today. Objective Vital Signs Vital Signs Date Time Temp Pulse Resp B/P Pulse Ox O2 Delivery O2 Flow Rate FiO2 12/06/16 15:00 98.6 68 20 113/63 98 Room Air 98.6 12/05/16 21:43 2.0 Physical Exam Bilateral lower extremities: dressings cdi, removed. incisions cdi with fay in place. new dressings applied. in hinged knee braces. mild swelling distally. nvi distally. Labs Laboratory Tests Test 12/04/16 17:32 12/04/16 22:03 12/05/16 06:25 12/05/16 07:12 Glucose (Fingerstick) 217mg/dL (70-99) 214mg/dL (70-99) 154mg/dL (70-99) Sodium Level 140mmol/L (136-145) Potassium Level 4.3mmol/L (3.5-5.1) Chloride Level 104mmol/L (98-107) Carbon Dioxide Level 25mmol/L (21-32) Anion Gap 11 (6-14) Blood Urea Nitrogen 21mg/dL (8-26) Creatinine 1.3mg/dL (0.7-1.3) Estimated GFR (Cockcroft-Gault) 64.8 Glucose Level 161mg/dL (70-99) Calcium Level 8.2mg/dL (8.5-10.1) Test 12/05/16 11:19 12/05/16 16:52 12/05/16 21:38 12/06/16 07:35 Glucose (Fingerstick) 178mg/dL (70-99) 235mg/dL (70-99) 152mg/dL (70-99) 155mg/dL (70-99) Test 12/06/16 11:18 Glucose (Fingerstick) 137mg/dL (70-99) Laboratory Tests Test 12/05/16 16:52 12/05/16 21:38 12/06/16 07:35 12/06/16 11:18 Glucose (Fingerstick) 235mg/dL (70-99) 152mg/dL (70-99) 155mg/dL (70-99) 137mg/dL (70-99) Assessment Assessment POD# 2, S/P bilateral quadricep tendon repair Problems: Plan Plan of Care The patient is wbat blle. PT: reccs for discharge ok for dc from an ortho standpoint once cleared by pt. can follow up in my office in 7-10 days for staple removal. LOI DOSHI MD Dec 06, 2016 16:48
[2016-12-06 19:00] VITALS: BP 110/52
[2016-12-06] MEDS: INSULIN DETEMIR 300 UNITS/3 ML INSULN.PEN. SQ SCH (20:47)
--- NOTE | 2016-12-06 21:48 | PDOC4 ---
Operative Note Operative Note DATE OF OPERATION: 12/04/2016 PREOPERATIVE DIAGNOSIS: Bilateral quadriceps tendon rupture. S76.193A POSTOPERATIVE DIAGNOSIS: Bilateral quadriceps tendon rupture. S76.193A OPERATION PERFORMED: Repair of bilateral quadriceps tendon ruptures, CPT 20853 x 2 SURGEON: ~Loi Doshi MD~ ANESTHESIA: ~General. ESTIMATED BLOOD LOSS: ~20 cc. TOURNIQUET TIME: Right side: 64 minutes, Left side 50 minutes DESCRIPTION OF OPERATION: The patient was seen in the preoperative holding area where the bilateral lower extremities were marked at the correct site per the preoperative protocol. The patient received IV Ancef for antibiotic prophylaxis. A timeout was performed. He was then brought back to the operating room where he underwent general anesthesia per the anesthesia service without complications. Bilateral lower extremities were prepped and draped in the usual sterile fashion. The right leg was first exsanguinated and tourniquet was inflated to 300 mmHg. A midline incision was made centered over the proximal patella and extending to the tibial tubercle. Sharp dissection was performed down through the skin and subcutaneous tissues. Full thickness skin flaps were raised. There was noted to be a complete rupture of the quadriceps tendon just proximal to the insertion. There was extension to both the medial as well as the lateral retinacula. There was a moderate amount of hematoma noted (50 cc), which was expressed from the joint and pulse lavaged with sterile saline. No fractures were noted. The articular cartilage was grossly intact. At that point, the tendon edges were gently debrided several millimeters down, back to healthy- appearing tissue. The tissue was of very poor quality, but there was a sufficient amount present for repair. The superior pole of the patella was then prepared using a rongeur to prepare the bone to a bleeding surface. At that point, #5 Fiberwire x 3 were used to run a total of 6 strands of suture coming out distally in a krackow running locking-type stitch. There was excellent tension taken up in the sutures with no gapping noted.~ At that point, a 2.5 mm drill bit was used to make 4 parallel holes through the patella, which each strand of the suture was passed through its respective hole using a suture passer. (two holes had two sutures) Hemostats were then placed and we felt the repair to take up excellent tension without undue stress to about 40 degrees of knee flexion. At that point, the knee was then extended and the Fiberwire sutures were tied. It should be noted that there was excellent stability of the patella within the trochlea without subluxation noted. The repair was reinforced with 0 Vicryl as well as the retinacular extension both medial and lateral. We felt we had an excellent repair. Again, the extremity flexed easily at 40 degrees without undue tension on the repair. Subcutaneous tissues were closed with 0 and 2-0 Vicryl, 3-0 monocryl, followed by fay for the skin. The tourniquet was deflated after 64 minutes. My attention was then turned to the left leg. The leg was first exsanguinated and tourniquet was inflated to 300 mmHg. A midline incision was made centered over the proximal patella and extending to the tibial tubercle. Sharp dissection was performed down through the skin and subcutaneous tissues. Full thickness skin flaps were raised. There was noted to be a complete rupture of the quadriceps tendon just proximal to the insertion. There was extension to both the medial as well as the lateral retinacula. There was a moderate amount of hematoma noted (50 cc), which was expressed from the joint and pulse lavaged with sterile saline. No fractures were noted. The articular cartilage was grossly intact. At that point, the tendon edges were gently debrided several millimeters down, back to healthy-appearing tissue. The tissue was of poor quality, but better than on the right leg. There was a sufficient amount present for repair. The superior pole of the patella was then prepared using a rongeur to prepare the bone to a bleeding surface. At that point, #5 Fiberwire x 2 were used to run a total of 4 strands of suture coming out distally in a krackow running locking-type stitch. There was excellent tension taken up in the sutures with no gapping noted. At that point, a 2.5 mm drill bit was used to make 3 parallel holes through the patella, which each strand of the suture was passed through its respective hole using a suture passer. (one hole had two sutures) Hemostats were then placed and we felt the repair to take up excellent tension without undue stress to about 90 degrees of knee flexion. At that point, the knee was then extended and the Fiberwire sutures were tied. It should be noted that there was excellent stability of the patella within the trochlea without subluxation noted. The repair was reinforced with 0 Vicryl as well as the retinacular extension both medial and lateral. We felt we had an excellent repair. Again, the extremity flexed easily at 90 degrees without undue tension on the repair. Subcutaneous tissues were closed with 0 and 2-0 Vicryl, 3-0 monocryl, followed by fay for the skin. The tourniquet was deflated after 50 minutes. Bilateral sterile dressings followed by Lloyd wraps were then applied, followed by hinged knee braces locked in extension. The patient was then awakened in the operating room, extubated and transferred to the PACU in stable condition. LOI DOSHI MD Dec 06, 2016 21:48
[2016-12-06 23:00] VITALS: BP 114/56
[2016-12-07 03:00] VITALS: BP 122/66
[2016-12-07 07:00] VITALS: BP 113/56
[2016-12-07] MEDS: SENNOSIDES/DOCUSATE 8.6/50MG TABLET. PO SCH ×2 (08:29→21:42)
[2016-12-07] MEDS: INSULIN ASPART 300 UNITS/3 ML INSULN.PEN SQ SCH ×3 (08:33→17:17)
[2016-12-07] MEDS ORDERED: BISACODYL 10 MG SUPP.RECT. PR PRN (09:00)
--- NOTE | 2016-12-07 09:04 | PDOC ---
PROGRESS NOTES Subjective Subjective He had low grade fever last night and he remains constipated.He denies dysuria. Objective Objective Vital Signs Date Time Temp Pulse Resp B/P Pulse Ox O2 Delivery O2 Flow Rate FiO2 12/07/16 03:00 99.1 91 19 122/66 95 Room Air 99.1 12/05/16 21:43 2.0 Intake and Output 12/07/16 06:59 Intake Total 1800 ml Output Total 1050 ml Balance 750 ml Intake Oral 1800 ml Output Urine Total 1050 ml Physical Exam Physical Exam He is alert and comfortable but continues with severe pain on trying to flex his knees during transfers and he stood up for 90 seconds with physical therapy and his son at bedside yesterday. Assessment Assessment Problems Medical Problems: (1) Contusion, knee Status: Acute (2) Fall from standing Status: Acute (3) Knee pain Status: Acute (4) Lumbar contusion Status: Acute (5) Quadriceps tendon rupture Status: Acute Plan Plan of Care To continue present physical and occupational therapy and to SNF for continued care when medically stable. Comment Review of Relevant I have reviewed the following items romi (where applicable) has been applied. Labs Laboratory Tests Test 12/05/16 11:19 12/05/16 16:52 12/05/16 21:38 12/06/16 07:35 Glucose (Fingerstick) 178mg/dL (70-99) 235mg/dL (70-99) 152mg/dL (70-99) 155mg/dL (70-99) Test 12/06/16 11:18 12/06/16 16:52 12/07/16 07:55 Glucose (Fingerstick) 137mg/dL (70-99) 124mg/dL (70-99) 152mg/dL (70-99) Laboratory Tests Test 12/06/16 11:18 12/06/16 16:52 12/07/16 07:55 Glucose (Fingerstick) 137mg/dL (70-99) 124mg/dL (70-99) 152mg/dL (70-99) Medications Current Medications Tramadol HCl (Ultram) 50 mg 1X ONCE PO Last administered on 12/01/16t 15:20; Start 12/01/16 at 15:30; Stop 12/01/16 at 15:31; Status DC Ondansetron HCl (Zofran) 4 mg PRN Q8HRS PRN IV NAUSEA/VOMITING; Start 12/01/16 at 16:30; Stop 12/02/16 at 16:29; Status DC Fentanyl Citrate (Fentanyl 2ml Vial) 50 mcg PRN Q2HR PRN IV PAIN; Start at 16:30; Stop 12/02/16 at 16:29; Status DC Insulin Aspart (Novolog) 0-5 UNITS TIDWMEALS SQ Last administered on 12/05/16 12:13; Start 12/01/16 at 17:00; Stop 12/05/16 at 13:24; Status DC Dextrose (Dextrose 50%-Water Syringe) 12.5 gm PRN Q15MIN PRN IV SEE COMMENTS; Start 12/01/16 at 16:30 Ibuprofen (Motrin) 400 mg PRN TID PRN PO INFLAMMATION Last administered on 12/06 12:40; Start 12/01/16 at 22:00 Acetaminophen/ Hydrocodone Bitart 1 tab 1 tab PRN Q4HRS PRN PO PAIN Last administered on 12/06/16 12:40; Start 12/02/16 at 15:30 Sodium Chloride (Iv Sodium Chloride 0.9% 1000ml Bag) 1,000 ml @ 75 mls/hr [id number] IV Last administered on 12/05/16 05:35; Start 12/03/16 at 12:45; Stop 12/05/16 at 13:57; Status DC Enoxaparin Sodium (Lovenox 40mg Syringe) 40 mg DAILY SQ ; Start 12/04/16 at 09: 00; Stop 12/04/16 at 09:00; Status DC Enoxaparin Sodium (Lovenox 40mg Syringe) 40 mg Q24H SQ Last administered on 12:40; Start 12/03/16 at 13:00 Ondansetron HCl (Zofran) 4 mg PRN Q6HRS PRN IV NAUSEA/VOMITING; Start 12/04/16 at 07:00; Stop 12/05/16 at 06:59; Status DC Fentanyl Citrate (Fentanyl 2ml Vial) 25 mcg PRN Q5MIN PRN IV MILD PAIN; Start 12/04/16 at 07:00; Stop 12/05/16 at 06:59; Status DC Fentanyl Citrate (Fentanyl 2ml Vial) 50 mcg PRN Q5MIN PRN IV MODERATE PAIN Last administered on 12/04/16 17:18; Start 12/04/16 at 07:00; Stop 12/05/16 at 06:59; Status DC Morphine Sulfate 1 mg 1 mg PRN Q10MIN PRN IV SEVERE PAIN; Start 12/04/16 at 07: 00; Stop 12/05/16 at 06:59; Status DC Lactated Ringer's (Iv Lactated Ringers) 1,000 ml @ 30 mls/hr Q24H IV Last administered on 12/04/16 08:49; Start 12/04/16 at 07:00; Stop 12/04/16 at 18:59 ; Status DC Lidocaine HCl 2 ml PRN 1X PRN ID PRIOR TO IV START; Start 12/04/16 at 07:00; Stop 12/05/16 at 06:59; Status DC Hydromorphone HCl (Dilaudid) 0.5 mg PRN Q10MIN PRN IV SEV PAIN, Second choice; Start 12/04/16 at 07:00; Stop 12/05/16 at 06:59; Status DC Prochlorperazine Edisylate (Compazine) 5 mg PACU PRN PRN IV NAUSEA, MRX1; Start 12/04/16 at 07:00; Stop 12/05/16 at 06:59; Status DC Magnesium Hydroxide (Milk Of Magnesia) 2,400 mg PRN DAILY PRN PO CONSTIPATION; Start 12/03/16 at 15:00 Senna/Docusate Sodium (Senna Plus) 1 tab BID PO Last administered on 12/07/16 08:29; Start 12/03/16 at 15:00 Bupivacaine HCl/ Epinephrine Bitart (Sensorcaine-Epi 0.25%-1:994807 Mpf) 30 ml STK-MED ONCE .ROUTE Last administered on 12/04/16 14:37; Start 12/04/16 at 07: 20; Stop 12/04/16 at 07:21; Status DC Sevoflurane (Ultane) 60 ml STK-MED ONCE IH ; Start 12/04/16 at 10:54; Stop 12/04 at 10:55; Status DC Fentanyl Citrate 100 mcg 100 mcg STK-MED ONCE .ROUTE ; Start 12/04/16 at 10:55; Stop 12/04/16 at 10:56; Status DC Propofol (Diprivan) 20 ml @ As Directed STK-MED ONCE IV ; Start 12/04/16 at 10: 55; Stop 12/04/16 at 10:56; Status DC Dexamethasone Sodium Phosphate (Decadron) 20 mg STK-MED ONCE .ROUTE ; Start at 10:55; Stop 12/04/16 at 10:56; Status DC Ondansetron HCl (Zofran) 4 mg STK-MED ONCE .ROUTE ; Start 12/04/16 at 10:56; Stop 12/04/16 at 10:57; Status DC Lidocaine HCl (Lidocaine HCl 2% Abboject) 100 mg STK-MED ONCE .ROUTE ; Start at 10:56; Stop 12/04/16 at 10:57; Status DC Rocuronium [place] (Zemuron) 100 mg STK-MED ONCE .ROUTE ; Start 12/04/16 at 12: 18; Stop 12/04/16 at 12:19; Status DC Glycopyrrolate (Robinul) 1 mg STK-MED ONCE .ROUTE ; Start 12/04/16 at 12:18; Stop 12/04/16 at 12:19; Status DC Neostigmine Methylsulfate 5 mg 5 mg STK-MED ONCE .ROUTE ; Start 12/04/16 at 12: 18; Stop 12/04/16 at 12:19; Status DC Cefazolin Sodium/ Dextrose (Ancef 2gm Premix) 50 ml @ As Directed STK-MED ONCE IV ; Start 12/04/16 at 12:41; Stop 12/04/16 at 12:42; Status DC Fentanyl Citrate (Fentanyl 2ml Vial) 100 mcg STK-MED ONCE .ROUTE ; Start at 13:01; Stop 12/04/16 at 13:02; Status DC Phenylephrine HCl (Alonzo-Synephrine Inj) 10 mg STK-MED ONCE .ROUTE ; Start at 13:06; Stop 12/04/16 at 13:07; Status DC Sodium Chloride (Sodium Chloride) 50 ml STK-MED ONCE IJ ; Start 12/04/16 at 13: 06; Stop 12/04/16 at 13:07; Status DC Rocuronium [place] 50 mg 50 mg STK-MED ONCE .ROUTE ; Start 12/04/16 at 13:19; Stop 12/04/16 at 13:20; Status DC Cefazolin Sodium/ Dextrose (Ancef 2gm Premix) 50 ml @ 100 mls/hr 1X PREOP IV ; Start 12/04/16 at 14:00; Stop 12/05/16 at 18:00; Status UNV Fentanyl Citrate (Fentanyl 2ml Vial) 100 mcg STK-MED ONCE .ROUTE ; Start at 14:13; Stop 12/04/16 at 14:14; Status DC Bupivacaine HCl/ Epinephrine Bitart (Sensorcaine-Epi 0.25%-1:938114 Mpf) 30 ml STK-MED ONCE .ROUTE Last administered on 12/04/16 14:37; Start 12/04/16 at 14: 25; Stop 12/04/16 at 14:26; Status DC Desflurane (Suprane) 90 ml STK-MED ONCE IH ; Start 12/04/16 at 15:12; Stop 12/04 at 15:13; Status DC Insulin Aspart (Novolog) 8 units TIDAC SQ Last administered on 12/07/16 08:33 ; Start 12/05/16 at 16:30 Insulin Detemir (Levemir) 16 units QHS SQ Last administered on 12/06/16 20:47 ; Start 12/05/16 at 21:00 Active Scripts Active Ultram (Tramadol Hcl) 50 Mg Tablet 1 Tab PO Q6HRS PRN Reported Novolog (Insulin Aspart) 100 Unit/1 Ml Cartridge 8 Unit SQ TIDAC Levemir (Insulin Detemir) 100 Unit/1 Ml Vial 16 Unit SQ HS Vitals/I & O Vital Sign - Last 24 Hours 12/06/16 12/06/16 12/06/16 12/06/16 11:00 12:40 13:40 15:00 Temp 98.2 98.6 98.2 98.6 Pulse 85 68 Resp 20 18 18 20 B/P 120/70 113/63 Pulse Ox 97 98 98 98 O2 Delivery Room Air Room Air Room Air Room Air 12/06/16 12/06/16 12/06/16 12/07/16 19:00 20:04 23:00 03:00 Temp 98.8 100.3 99.1 98.8 100.3 99.1 Pulse 98 86 91 Resp B/P 110/52 114/56 122/66 Pulse Ox 96 99 95 O2 Delivery Room Air Room Air Room Air Room Air Intake and Output 12/06/16 12/06/16 12/07/16 14:59 22:59 06:59 Intake Total 840 ml 780 ml 180 ml Output Total 600 ml 450 ml Balance 240 ml 330 ml 180 ml ANEUDY THURSTON MD Dec 07, 2016 09:04
[2016-12-07] MEDS: HYDROCODONE/APAP 5/325MG TABLET. PO PRN ×2 (09:41→17:16)
[2016-12-07] MEDS: BISACODYL 5 MG TABLET.DR. PO SCH (09:42)
[2016-12-07 10:00] LABS: BASO % 0 % (0-3); EOS % 2 % (0-3); HEMATOCRIT 33.2 % (39.0-53.0); HEMOGLOBIN 11.3 g/dL (13.0-17.5); LYMPH # 1.6 x10^3/uL (1.0-4.8); LYMPH % 17 % (24-48); MEAN CORPUSCULAR HEMOGLOBIN 31 pg (25-35); MEAN CORPUSCULAR HGB CONC 34 g/dL (31-37); MEAN CORPUSCULAR VOLUME 91 fL (79-100); MONO % 9 % (0-9); NEUT % 72 % (31-73); PLATELET COUNT 224 x10^3/uL (140-400); RED BLOOD COUNT 3.66 x10^6/uL (4.30-5.70); RED CELL DISTRIBUTION WIDTH 13.2 % (11.5-14.5); WHITE BLOOD COUNT 9.5 x10^3/uL (4.0-11.0)
[2016-12-07] MEDS ORDERED: MAGNESIUM HYDROXIDE 2,400 MG/30 ML ORAL.SUSP. PO PRN (10:15)
[2016-12-07] MEDS ORDERED: MAGNESIUM HYDROXIDE 2,400 MG/30 ML ORAL.SUSP. PO ONE (10:15)
--- NOTE | 2016-12-07 10:16 | PDOC3 ---
Discharge Summary Visit Information Date of Admission: Dec 01, 2016 Date of Discharge: Dec 07, 2016 Admitting Diagnosis Comment: Fall at home Swelling of Right knee, Complete rupture of the distal right quadriceps tendon S /P bilateral quadriceps tendon repair on 12/04/16, Complete/ near complete rupture of the distal left quadriceps tendon HTN stable. DM stable. Final Diagnosis Problems Medical Problems: (1) Contusion, knee Status: Acute (2) Fall from standing Status: Acute (3) Knee pain Status: Acute (4) Lumbar contusion Status: Acute (5) Quadriceps tendon rupture Status: Acute Brief Hospital Course Allergies Allergies Coded Allergies Type Severity Reaction Last Updated Verified No Known Drug Allergies 12/01/16 No Vital Signs Vital Signs Date Time Temp Pulse Resp B/P Pulse Ox O2 Delivery O2 Flow Rate FiO2 12/07/16 09:41 Room Air 12/07/16 07:00 99.2 86 16 113/56 98 99.2 Lab Results Laboratory Tests Test 12/05/16 11:19 12/05/16 16:52 12/05/16 21:38 12/06/16 07:35 Glucose (Fingerstick) 178mg/dL (70-99) 235mg/dL (70-99) 152mg/dL (70-99) 155mg/dL (70-99) Test 12/06/16 11:18 12/06/16 16:52 12/07/16 07:55 12/07/16 09:45 Glucose (Fingerstick) 137mg/dL (70-99) 124mg/dL (70-99) 152mg/dL (70-99) White Blood Count 9.5x10^3/uL (4.0-11.0) Red Blood Count 3.66x10^6/uL (4.30-5.70) Hemoglobin 11.3g/dL (13.0-17.5) Hematocrit 33.2% (39.0-53.0) Mean Corpuscular Volume 91fL (79-100) Mean Corpuscular Hemoglobin 31pg (25-35) Mean Corpuscular Hemoglobin Concent 34g/dL (31-37) Red Cell Distribution Width 13.2% (11.5-14.5) Platelet Count 224x10^3/uL (140-400) Neutrophils (%) (Auto) 72% (31-73) Lymphocytes (%) (Auto) 17% (24-48) Monocytes (%) (Auto) 9% (0-9) Eosinophils (%) (Auto) 2% (0-3) Basophils (%) (Auto) 0% (0-3) Neutrophils # (Auto) 6.8x10^3uL (1.8-7.7) Lymphocytes # (Auto) 1.6x10^3/uL (1.0-4.8) Monocytes # (Auto) 0.9x10^3/uL (0.0-1.1) Eosinophils # (Auto) 0.2x10^3/uL (0.0-0.7) Basophils # (Auto) 0.0x10^3/uL (0.0-0.2) Laboratory Tests Test 12/06/16 11:18 12/06/16 16:52 12/07/16 07:55 12/07/16 09:45 Glucose (Fingerstick) 137mg/dL (70-99) 124mg/dL (70-99) 152mg/dL (70-99) White Blood Count 9.5x10^3/uL (4.0-11.0) Red Blood Count 3.66x10^6/uL (4.30-5.70) Hemoglobin 11.3g/dL (13.0-17.5) Hematocrit 33.2% (39.0-53.0) Mean Corpuscular Volume 91fL (79-100) Mean Corpuscular Hemoglobin 31pg (25-35) Mean Corpuscular Hemoglobin Concent 34g/dL (31-37) Red Cell Distribution Width 13.2% (11.5-14.5) Platelet Count 224x10^3/uL (140-400) Neutrophils (%) (Auto) 72% (31-73) Lymphocytes (%) (Auto) 17% (24-48) Monocytes (%) (Auto) 9% (0-9) Eosinophils (%) (Auto) 2% (0-3) Basophils (%) (Auto) 0% (0-3) Neutrophils # (Auto) 6.8x10^3uL (1.8-7.7) Lymphocytes # (Auto) 1.6x10^3/uL (1.0-4.8) Monocytes # (Auto) 0.9x10^3/uL (0.0-1.1) Eosinophils # (Auto) 0.2x10^3/uL (0.0-0.7) Basophils # (Auto) 0.0x10^3/uL (0.0-0.2) Brief Hospital Course Mr. Ochoa is a 76 old heavy set, AA male fell at home, hurt the r knee, had tendon repair by ortho on 12.04., Needs rehab. CLeared from orhto with ff up 7- 10 days for staple removal, Needs gadgets for transfer and rehab. ALso some constipation. Pt to to go to rehab, dw and SW> MAR done Pt seen and examined Dc 32 mins > 50% arranging dc, counselling etc COnsults; Ortho Proc; R knee repair - rputured tendon f up Dr. Louie 7-10 days staple removal Discharge Information Condition at Discharge: Improved, Stable Disposition/Orders: Other (snu) Scheduled Insulin Aspart (Novolog) 8 UNIT SQ TIDAC (Reported) Insulin Detemir (Levemir) 16 UNIT SQ HS (Reported) Scheduled PRN Tramadol Hcl (Ultram) 1 TAB PO Q6HRS PRN PRN PAIN LEXIE ACUNA MD Dec 07, 2016 10:16
[2016-12-07 11:00] VITALS: BP 134/65
[2016-12-07] MEDS: POLYETHYLENE GLYCOL 3350 17 GM PACKET. PO SCH (11:20)
[2016-12-07] MEDS: ENOXAPARIN 40 MG/0.4 ML SYRINGE. SQ SCH (13:03)
--- NOTE | 2016-12-07 14:36 | RAD ---
Indication fever. Postop. A single view of the chest was obtained and is compared to an examination 08/06/2011. The heart and pulmonary vessels appear normal. The lungs are clear. There is no pleural fluid or pneumothorax. The bony structures appear grossly intact. IMPRESSION: No acute or focal process seen in the chest
--- NOTE | 2016-12-07 14:55 | PDOC ---
PROGRESS NOTES Subjective Subjective No complaints, pain is well controlled. Ambulating with therapy without difficulty. Objective Vital Signs Vital Signs Date Time Temp Pulse Resp B/P Pulse Ox O2 Delivery O2 Flow Rate FiO2 12/07/16 11:00 97.4 86 16 134/65 95 Room Air 97.4 12/07/16 10:45 2.0 Physical Exam Sitting in chair eating lunch. Bilateral knee dressings c/d/i. Bilateral hinged knee braces intact. Right knee brace with allowed motion 0-20 degrees and left knee brace with allowed motion 0-45 degrees. Calves are soft and nontender with a negative Elsia's sign. Good dorsiflexion and plantarflexion with no sign of neurovascular injury. Peripheral pulses and light touch sensation intact. Labs Laboratory Tests Test 12/05/16 16:52 12/05/16 21:38 12/06/16 07:35 12/06/16 11:18 Glucose (Fingerstick) 235mg/dL (70-99) 152mg/dL (70-99) 155mg/dL (70-99) 137mg/dL (70-99) Test 12/06/16 16:52 12/07/16 07:55 12/07/16 09:45 12/07/16 11:18 Glucose (Fingerstick) 124mg/dL (70-99) 152mg/dL (70-99) 183mg/dL (70-99) White Blood Count 9.5x10^3/uL (4.0-11.0) Red Blood Count 3.66x10^6/uL (4.30-5.70) Hemoglobin 11.3g/dL (13.0-17.5) Hematocrit 33.2% (39.0-53.0) Mean Corpuscular Volume 91fL (79-100) Mean Corpuscular Hemoglobin 31pg (25-35) Mean Corpuscular Hemoglobin Concent 34g/dL (31-37) Red Cell Distribution Width 13.2% (11.5-14.5) Platelet Count 224x10^3/uL (140-400) Neutrophils (%) (Auto) 72% (31-73) Lymphocytes (%) (Auto) 17% (24-48) Monocytes (%) (Auto) 9% (0-9) Eosinophils (%) (Auto) 2% (0-3) Basophils (%) (Auto) 0% (0-3) Neutrophils # (Auto) 6.8x10^3uL (1.8-7.7) Lymphocytes # (Auto) 1.6x10^3/uL (1.0-4.8) Monocytes # (Auto) 0.9x10^3/uL (0.0-1.1) Eosinophils # (Auto) 0.2x10^3/uL (0.0-0.7) Basophils # (Auto) 0.0x10^3/uL (0.0-0.2) Laboratory Tests Test 12/06/16 16:52 12/07/16 07:55 12/07/16 09:45 12/07/16 11:18 Glucose (Fingerstick) 124mg/dL (70-99) 152mg/dL (70-99) 183mg/dL (70-99) White Blood Count 9.5x10^3/uL (4.0-11.0) Red Blood Count 3.66x10^6/uL (4.30-5.70) Hemoglobin 11.3g/dL (13.0-17.5) Hematocrit 33.2% (39.0-53.0) Mean Corpuscular Volume 91fL (79-100) Mean Corpuscular Hemoglobin 31pg (25-35) Mean Corpuscular Hemoglobin Concent 34g/dL (31-37) Red Cell Distribution Width 13.2% (11.5-14.5) Platelet Count 224x10^3/uL (140-400) Neutrophils (%) (Auto) 72% (31-73) Lymphocytes (%) (Auto) 17% (24-48) Monocytes (%) (Auto) 9% (0-9) Eosinophils (%) (Auto) 2% (0-3) Basophils (%) (Auto) 0% (0-3) Neutrophils # (Auto) 6.8x10^3uL (1.8-7.7) Lymphocytes # (Auto) 1.6x10^3/uL (1.0-4.8) Monocytes # (Auto) 0.9x10^3/uL (0.0-1.1) Eosinophils # (Auto) 0.2x10^3/uL (0.0-0.7) Basophils # (Auto) 0.0x10^3/uL (0.0-0.2) Assessment Assessment POD #3 bilateral quadriceps tendon repair Problems: Plan Plan of Care Continue PT and DVT ppx. WBAT with walker. Right knee brace with allowed motion 0-20 degrees. Left knee brace with allowed motion 0-45 degrees. Planning for discharge to SNF tomorrow. Followup with Dr. Howard in 7-10 days. KACIE CHAUDHARY Dec 07, 2016 14:55
[2016-12-07 15:00] VITALS: BP 111/59
[2016-12-07 19:00] VITALS: BP 113/58
[2016-12-07] MEDS: INSULIN DETEMIR 300 UNITS/3 ML INSULN.PEN. SQ SCH (21:47)
[2016-12-07 22:37] VITALS: BP 117/66
[2016-12-08 07:00] VITALS: BP 136/68
[2016-12-08] MEDS: HYDROCODONE/APAP 5/325MG TABLET. PO PRN ×2 (07:42→14:31)
[2016-12-08] MEDS: INSULIN ASPART 300 UNITS/3 ML INSULN.PEN SQ SCH ×2 (07:52→13:41)
--- NOTE | 2016-12-08 08:49 | PDOC ---
PROGRESS NOTES Subjective Subjective No new complaints. Objective Objective Vital Signs Date Time Temp Pulse Resp B/P Pulse Ox O2 Delivery O2 Flow Rate FiO2 12/08/16 07:42 18 Room Air 12/08/16 07:00 98.5 97 136/68 97 98.5 12/07/16 19:50 2.0 Intake and Output 12/08/16 07:00 Intake Total 800 ml Balance 800 ml Intake Oral 800 ml # Voids 2 # Bowel Movements 1 Physical Exam Physical Exam He is alert and comfortable but still requires two person help with transfers. Assessment Assessment Problems Medical Problems: (1) Contusion, knee Status: Acute (2) Fall from standing Status: Acute (3) Knee pain Status: Acute (4) Lumbar contusion Status: Acute (5) Quadriceps tendon rupture Status: Acute Plan Plan of Care To SNF for continued care when medically stable. Comment Review of Relevant I have reviewed the following items romi (where applicable) has been applied. Labs Laboratory Tests Test 12/06/16 11:18 12/06/16 16:52 12/06/16 20:38 12/07/16 07:55 Glucose (Fingerstick) 137mg/dL (70-99) 124mg/dL (70-99) 169mg/dL (70-99) 152mg/dL (70-99) Test 12/07/16 09:45 12/07/16 11:18 12/07/16 15:59 12/07/16 20:18 White Blood Count 9.5x10^3/uL (4.0-11.0) Red Blood Count 3.66x10^6/uL (4.30-5.70) Hemoglobin 11.3g/dL (13.0-17.5) Hematocrit 33.2% (39.0-53.0) Mean Corpuscular Volume 91fL (79-100) Mean Corpuscular Hemoglobin 31pg (25-35) Mean Corpuscular Hemoglobin Concent 34g/dL (31-37) Red Cell Distribution Width 13.2% (11.5-14.5) Platelet Count 224x10^3/uL (140-400) Neutrophils (%) (Auto) 72% (31-73) Lymphocytes (%) (Auto) 17% (24-48) Monocytes (%) (Auto) 9% (0-9) Eosinophils (%) (Auto) 2% (0-3) Basophils (%) (Auto) 0% (0-3) Neutrophils # (Auto) 6.8x10^3uL (1.8-7.7) Lymphocytes # (Auto) 1.6x10^3/uL (1.0-4.8) Monocytes # (Auto) 0.9x10^3/uL (0.0-1.1) Eosinophils # (Auto) 0.2x10^3/uL (0.0-0.7) Basophils # (Auto) 0.0x10^3/uL (0.0-0.2) Glucose (Fingerstick) 183mg/dL (70-99) 163mg/dL (70-99) 127mg/dL (70-99) Laboratory Tests Test 12/07/16 09:45 12/07/16 11:18 12/07/16 15:59 12/07/16 20:18 White Blood Count 9.5x10^3/uL (4.0-11.0) Red Blood Count 3.66x10^6/uL (4.30-5.70) Hemoglobin 11.3g/dL (13.0-17.5) Hematocrit 33.2% (39.0-53.0) Mean Corpuscular Volume 91fL (79-100) Mean Corpuscular Hemoglobin 31pg (25-35) Mean Corpuscular Hemoglobin Concent 34g/dL (31-37) Red Cell Distribution Width 13.2% (11.5-14.5) Platelet Count 224x10^3/uL (140-400) Neutrophils (%) (Auto) 72% (31-73) Lymphocytes (%) (Auto) 17% (24-48) Monocytes (%) (Auto) 9% (0-9) Eosinophils (%) (Auto) 2% (0-3) Basophils (%) (Auto) 0% (0-3) Neutrophils # (Auto) 6.8x10^3uL (1.8-7.7) Lymphocytes # (Auto) 1.6x10^3/uL (1.0-4.8) Monocytes # (Auto) 0.9x10^3/uL (0.0-1.1) Eosinophils # (Auto) 0.2x10^3/uL (0.0-0.7) Basophils # (Auto) 0.0x10^3/uL (0.0-0.2) Glucose (Fingerstick) 183mg/dL (70-99) 163mg/dL (70-99) 127mg/dL (70-99) Medications Current Medications Tramadol HCl (Ultram) 50 mg 1X ONCE PO Last administered on 12/01/16 15:20; Start 12/01/16 at 15:30; Stop 12/01/16 at 15:31; Status DC Ondansetron HCl (Zofran) 4 mg PRN Q8HRS PRN IV NAUSEA/VOMITING; Start 12/01/16 at 16:30; Stop 12/02/16 at 16:29; Status DC Fentanyl Citrate (Fentanyl 2ml Vial) 50 mcg PRN Q2HR PRN IV PAIN; Start at 16:30; Stop 12/02/16 at 16:29; Status DC Insulin Aspart (Novolog) 0-5 UNITS TIDWMEALS SQ Last administered on 12/05/16 12:13; Start 12/01/16 at 17:00; Stop 12/05/16 at 13:24; Status DC Dextrose (Dextrose 50%-Water Syringe) 12.5 gm PRN Q15MIN PRN IV SEE COMMENTS; Start 12/01/16 at 16:30 Ibuprofen (Motrin) 400 mg PRN TID PRN PO INFLAMMATION Last administered on 12/06 12:40; Start 12/01/16 at 22:00 Acetaminophen/ Hydrocodone Bitart 1 tab 1 tab PRN Q4HRS PRN PO PAIN Last administered on 12/08/16 07:42; Start 12/02/16 at 15:30 Sodium Chloride (Iv Sodium Chloride 0.9% 1000ml Bag) 1,000 ml @ 75 mls/hr [id number] IV Last administered on 12/05/16 05:35; Start 12/03/16 at 12:45; Stop 12/05/16 at 13:57; Status DC Enoxaparin Sodium (Lovenox 40mg Syringe) 40 mg DAILY SQ ; Start 12/04/16 at 09: 00; Stop 12/04/16 at 09:00; Status DC Enoxaparin Sodium (Lovenox 40mg Syringe) 40 mg Q24H SQ Last administered on 13:03; Start 12/03/16 at 13:00 Ondansetron HCl (Zofran) 4 mg PRN Q6HRS PRN IV NAUSEA/VOMITING; Start 12/04/16 at 07:00; Stop 12/05/16 at 06:59; Status DC Fentanyl Citrate (Fentanyl 2ml Vial) 25 mcg PRN Q5MIN PRN IV MILD PAIN; Start 12/04/16 at 07:00; Stop 12/05/16 at 06:59; Status DC Fentanyl Citrate (Fentanyl 2ml Vial) 50 mcg PRN Q5MIN PRN IV MODERATE PAIN Last administered on 12/04/16 17:18; Start 12/04/16 at 07:00; Stop 12/05/16 at 06:59; Status DC Morphine Sulfate 1 mg 1 mg PRN Q10MIN PRN IV SEVERE PAIN; Start 12/04/16 at 07: 00; Stop 12/05/16 at 06:59; Status DC Lactated Ringer's (Iv Lactated Ringers) 1,000 ml @ 30 mls/hr Q24H IV Last administered on 12/04/16 08:49; Start 12/04/16 at 07:00; Stop 12/04/16 at 18:59 ; Status DC Lidocaine HCl 2 ml PRN 1X PRN ID PRIOR TO IV START; Start 12/04/16 at 07:00; Stop 12/05/16 at 06:59; Status DC Hydromorphone HCl (Dilaudid) 0.5 mg PRN Q10MIN PRN IV SEV PAIN, Second choice; Start 12/04/16 at 07:00; Stop 12/05/16 at 06:59; Status DC Prochlorperazine Edisylate (Compazine) 5 mg PACU PRN PRN IV NAUSEA, MRX1; Start 12/04/16 at 07:00; Stop 12/05/16 at 06:59; Status DC Magnesium Hydroxide (Milk Of Magnesia) 2,400 mg PRN DAILY PRN PO CONSTIPATION; Start 12/03/16 at 15:00; Stop 12/07/16 at 15:16; Status DC Senna/Docusate Sodium (Senna Plus) 1 tab BID PO Last administered on 12/07/16 21:42; Start 12/03/16 at 15:00 Bupivacaine HCl/ Epinephrine Bitart (Sensorcaine-Epi 0.25%-1:977411 Mpf) 30 ml STK-MED ONCE .ROUTE Last administered on 12/04/16t 14:37; Start 12/04/16 at 07: 20; Stop 12/04/16 at 07:21; Status DC Sevoflurane (Ultane) 60 ml STK-MED ONCE IH ; Start 12/04/16 at 10:54; Stop 12/04 at 10:55; Status DC Fentanyl Citrate 100 mcg 100 mcg STK-MED ONCE .ROUTE ; Start 12/04/16 at 10:55; Stop 12/04/16 at 10:56; Status DC Propofol (Diprivan) 20 ml @ As Directed STK-MED ONCE IV ; Start 12/04/16 at 10: 55; Stop 12/04/16 at 10:56; Status DC Dexamethasone Sodium Phosphate (Decadron) 20 mg STK-MED ONCE .ROUTE ; Start at 10:55; Stop 12/04/16 at 10:56; Status DC Ondansetron HCl (Zofran) 4 mg STK-MED ONCE .ROUTE ; Start 12/04/16 at 10:56; Stop 12/04/16 at 10:57; Status DC Lidocaine HCl (Lidocaine HCl 2% Abboject) 100 mg STK-MED ONCE .ROUTE ; Start at 10:56; Stop 12/04/16 at 10:57; Status DC Rocuronium [place] (Zemuron) 100 mg STK-MED ONCE .ROUTE ; Start 12/04/16 at 12: 18; Stop 12/04/16 at 12:19; Status DC Glycopyrrolate (Robinul) 1 mg STK-MED ONCE .ROUTE ; Start 12/04/16 at 12:18; Stop 12/04/16 at 12:19; Status DC Neostigmine Methylsulfate 5 mg 5 mg STK-MED ONCE .ROUTE ; Start 12/04/16 at 12: 18; Stop 12/04/16 at 12:19; Status DC Cefazolin Sodium/ Dextrose (Ancef 2gm Premix) 50 ml @ As Directed STK-MED ONCE IV ; Start 12/04/16 at 12:41; Stop 12/04/16 at 12:42; Status DC Fentanyl Citrate (Fentanyl 2ml Vial) 100 mcg STK-MED ONCE .ROUTE ; Start at 13:01; Stop 12/04/16 at 13:02; Status DC Phenylephrine HCl (Alonzo-Synephrine Inj) 10 mg STK-MED ONCE .ROUTE ; Start at 13:06; Stop 12/04/16 at 13:07; Status DC Sodium Chloride (Sodium Chloride) 50 ml STK-MED ONCE IJ ; Start 12/04/16 at 13: 06; Stop 12/04/16 at 13:07; Status DC Rocuronium [place] 50 mg 50 mg STK-MED ONCE .ROUTE ; Start 12/04/16 at 13:19; Stop 12/04/16 at 13:20; Status DC Cefazolin Sodium/ Dextrose (Ancef 2gm Premix) 50 ml @ 100 mls/hr 1X PREOP IV ; Start 12/04/16 at 14:00; Stop 12/05/16 at 18:00; Status UNV Fentanyl Citrate (Fentanyl 2ml Vial) 100 mcg STK-MED ONCE .ROUTE ; Start at 14:13; Stop 12/04/16 at 14:14; Status DC Bupivacaine HCl/ Epinephrine Bitart (Sensorcaine-Epi 0.25%-1:850139 Mpf) 30 ml STK-MED ONCE .ROUTE Last administered on 12/04/16 14:37; Start 12/04/16 at 14: 25; Stop 12/04/16 at 14:26; Status DC Desflurane (Suprane) 90 ml STK-MED ONCE IH ; Start 12/04/16 at 15:12; Stop 12/04 at 15:13; Status DC Insulin Aspart (Novolog) 8 units TIDAC SQ Last administered on 12/08/16 07:52 ; Start 12/05/16 at 16:30 Insulin Detemir (Levemir) 16 units QHS SQ Last administered on 12/07/16 21:47 ; Start 12/05/16 at 21:00 Bisacodyl (Dulcolax Tab) 10 mg DAILY PO Last administered on 12/07/16 09:42; Start 12/07/16 at 09:00 Bisacodyl (Dulcolax Supp) 10 mg PRN DAILY PRN [place] CONSTIPATION; Start 12/07/16 at 09:00 Magnesium Hydroxide (Milk Of Magnesia) 2,400 mg 1X ONCE PO Last administered on 12/07/16 11:20; Start 12/07/16 at 10:15; Stop 12/07/16 at 10:16; Status DC Magnesium Hydroxide (Milk Of Magnesia) 2,400 mg PRN DAILY PRN PO CONSTIPATION; Start 12/07/16 at 10:15 Polyethylene Glycol (miraLAX PACKET) 17 gm DAILY PO Last administered on 11:20; Start 12/07/16 at 10:15 Active Scripts Active Ultram (Tramadol Hcl) 50 Mg Tablet 1 Tab PO Q6HRS PRN Reported Novolog (Insulin Aspart) 100 Unit/1 Ml Cartridge 8 Unit SQ TIDAC Levemir (Insulin Detemir) 100 Unit/1 Ml Vial 16 Unit SQ HS Vitals/I & O Vital Sign - Last 24 Hours 12/07/16 12/07/16 12/07/16 12/07/16 09:41 11:00 15:00 17:16 Temp 97.4 98.2 97.4 98.2 Pulse 86 90 Resp 16 16 B/P 134/65 111/59 Pulse Ox 95 94 94 O2 Delivery Room Air Room Air Room Air Room Air O2 Flow Rate 2.0 12/07/16 12/07/16 12/07/16 12/07/16 18:20 19:00 19:50 22:37 Temp 98.7 98.9 98.7 98.9 Pulse 93 83 Resp 18 18 B/P 113/58 117/66 Pulse Ox 94 95 94 O2 Delivery Room Air Room Air Room Air Room Air O2 Flow Rate 2.0 2.0 12/08/16 12/08/16 07:00 07:42 Temp 98.5 98.5 Pulse 97 Resp 18 B/P 136/68 Pulse Ox 97 O2 Delivery Room Air Room Air Intake and Output 12/07/16 12/07/16 12/08/16 15:00 23:00 07:00 Intake Total 800 ml Balance 800 ml ANEUDY THURSTON MD Dec 08, 2016 08:49
[2016-12-08] MEDS: POLYETHYLENE GLYCOL 3350 17 GM PACKET. PO SCH (09:00)
[2016-12-08] MEDS: SENNOSIDES/DOCUSATE 8.6/50MG TABLET. PO SCH (09:00)
[2016-12-08] MEDS: BISACODYL 5 MG TABLET.DR. PO SCH (09:00)
[2016-12-08 10:30] VITALS: BP 130/64
--- NOTE | 2016-12-08 11:12 | PDOC ---
Provider Note Provider Note Pt seen and examined No change from yesterday's note Ready for ppLAce today Dw pt and and SW MAR done in chart LEXIE ACUNA MD Dec 08, 2016 11:12
[2016-12-08] MEDS: ENOXAPARIN 40 MG/0.4 ML SYRINGE. SQ SCH (13:41)
[2016-12-08 15:06] VITALS: BP 134/67
== END 2016-12-08 15:00 | DRG 500 ==
LOC: ER 13:03 → ED HOLD 16:13 → 5 SOUTH 18:44
PROVIDERS: ADMIT Internal Medicine Hematology & Oncology; ATTEND Internal Medicine Hematology & Oncology
PROC: 0LQQ0ZZ Repair Right Knee Tendon, Open Approach (ICD-10-PCS; 2016-12-04)
PROC: 0LQR0ZZ Repair Left Knee Tendon, Open Approach (ICD-10-PCS; principal; 2016-12-04 12:45)
DX: S76.112A Strain of left quadriceps muscle, fascia and tendon, initial encounter (principal); N17.0 Acute kidney failure with tubular necrosis; C18.9 Malignant neoplasm of colon, unspecified; S76.111A Strain of right quadriceps muscle, fascia and tendon, initial encounter; E11.42 Type 2 diabetes mellitus with diabetic polyneuropathy; I10 Essential (primary) hypertension; M47.9 Spondylosis, unspecified; W01.0XXA Fall on same level from slipping, tripping and stumbling without subsequent striking against object, initial encounter; Y92.009 Unspecified place in unspecified non-institutional (private) residence as the place of occurrence of the external cause; Z79.4 Long term (current) use of insulin; Z80.3 Family history of malignant neoplasm of breast; Z85.038 Personal history of other malignant neoplasm of large intestine; Y93.89 Activity, other specified; Y99.8 Other external cause status; S30.0XXA Contusion of lower back and pelvis, initial encounter; E66.9 Obesity, unspecified; Z68.35 Body mass index [BMI] 35.0-35.9, adult
CPT/HCPCS: 36415; 70450; 71010; 72100; 73564; 73718; 80048; 82947; 85027; C1769; J0690; J1100; J1650; J1815; J2405; J2704; J2710; J3010; J3490; J7030; J7120; 97110; 97116; 97530; 99285-25

== ENCOUNTER → 2020-03-01 | Outpatient (CLI) | payer MEDICARE, OTHER ==
[~2020-03-01] MED LIST: ACET325T9 PO; FERR325T14 PO; HYDR12.58 PO; HYDR50TA6 PO; INSU100C4 SQ; INSU100V13 SQ; TRAM-48 PO
== END | disposition home or self-care (01) ==
LOC: LAB 14:19
PROVIDERS: ATTEND Specialist
DX: Z11.59 Encounter for screening for other viral diseases (principal)
CPT/HCPCS: U0003-CS

== ENCOUNTER → 2020-03-06 | Day surgery (SDC) | payer MEDICARE ==
[~2020-03-06] VITALS: Ht 180.3 cm; Wt 113.4 kg
[~2020-03-06] MED LIST changes: +BUPIVACAINE-EPI 0.5%-1:200000 MPF 30 ML VIAL. INJ ONE; +BUPIVACAINE-EPI 0.5%-1:200000 MPF 30 ML VIAL. ONE; +DEXAMETHASONE SOD PHOS 4 MG/ML VIAL ONE; +HYDR-2761 PO; +HYDROcodone/APAP 5/325MG 1 TAB TABLET PO ONE; +HYDROmorphone 2 MG/ML VIAL IV PRN; +IV RINGERS,LACTATED 1000ML 1,000 ML IV SCH; +LIDOCAINE 2% PF 5 ML VIAL. ONE; +METHYLENE BLUE 0.5% 10ml AMPULE. IJ ONE; +MORPHINE SULFATE 2 MG/ML VIAL. IV PRN; +ONDANSETRON PF 4 MG/2 ML VIAL. IV PRN; +ONDANSETRON PF 4 MG/2 ML VIAL. ONE; +PHENYLEPHRINE in 0.9% NACL PF 1 MG/10 ML SYRINGE. IV ONE; +PROCHLORPERAZINE 10 MG/2 ML VIAL. IV PRN; +PROPOFOL 10 MG/ML (20ML) VIAL. IV ONE; +ceFAZolin SODIUM IV Push 1 GM VIAL. IVP ONE; +ceFAZolin SODIUM IV Push 1 GM VIAL. IVP PRN; +ePHEDrine PF IN SALINE 50 MG/10 ML SYRINGE. IV ONE; +fentaNYL PF VIAL 100 MCG/2 ML VIAL IV PRN; +fentaNYL PF VIAL 100 MCG/2 ML VIAL ONE
--- NOTE | 2020-03-06 07:05 | PREOP HP ---
DATE OF SERVICE: 02/20/2020 HISTORY OF PRESENT ILLNESS: The patient is referred to me because of a swollen scrotum and swollen penis. The history is that he has had this for about 3-4 weeks, it is getting worse and he apparently has had a CT scan, which we do not have the results of, and a sonogram which showed some lymphadenopathy in both inguinal lymph nodes. Otherwise, he is referred for this. He is up and about and has no evidence of ulceration or other problems. PAST MEDICAL HISTORY: Shows normal childhood diseases. He does have diabetes, for which he takes insulin. He also takes medicine for hypertension. There is no heart disease. He takes no anticoagulants. The history is very vague as he said he had colonoscopy and had some benign polyps removed recently within the last year, but also had some type of laparoscopic procedure. He does not know what was done and what they found. I do not know if it was prostate or what. He has a small incision above the pubis in longitudinal fashion and one below the umbilicus, not certain what was done. This is an old healed scar from a long time ago. SOCIAL HISTORY: The patient does not smoke, drink or use illicit drugs. ALLERGIES: He has no allergies. REVIEW OF SYSTEMS: Otherwise negative. He does have bilateral knee pain, for which he uses a walker. He is 79 years old and gets around. He is alert, cooperative, and doing very well. PHYSICAL EXAMINATION: GENERAL: Shows an alert male, in no acute distress. HEAD, EYES, EARS, NOSE AND THROAT: Grossly normal. CHEST: Clear bilaterally to auscultation. HEART: Had no murmurs, heaves, friction rubs or thrills. The rate was 79 beats per minute. It was regular, but somewhat fast. He did not have a fever. ABDOMEN: Negative except for the small scar as noted. There was no organomegaly, guarding, rebound or other abnormalities, but in the groin, there were greatly enlarged scrotal sac with penis, which was very hard and swollen. There was no evidence of gangrene or any type of situation, but it was edematous and swollen and very hard. EXTREMITIES: Grossly normal except for pain in the knees. IMPRESSION: 1. Swollen penis and scrotum. 2. Diabetes. 3. Hypertension. 4. It should be noted that he recently had a sonogram, which showed enlarged inguinal lymph nodes, so he has lymphadenopathy. He states to have had a CT of the abdomen, chest and pelvis, I do not have those results, we will have to go and see those personally and we will do that. LUIS OLIVAS MD DR: BRITT/alice JOB#: [id number] / [id number] MARIPOSA
[2020-03-06 08:38] LABS: BASO % 1 % (0-3); EOS # 0.1 x10^3/uL (0.0-0.7); EOS % 2 % (0-3); HEMATOCRIT 28.1 % (39.0-53.0); HEMOGLOBIN 9.5 g/dL (13.0-17.5); LYMPH # 1.3 x10^3/uL (1.0-4.8); LYMPH % 20 % (24-48); MEAN CORPUSCULAR HEMOGLOBIN 30 pg (25-35); MEAN CORPUSCULAR HGB CONC 34 g/dL (31-37); MEAN CORPUSCULAR VOLUME 90 fL (79-100); MONO # 0.7 x10^3/uL (0.0-1.1); MONO % 10 % (0-9); NEUT # 4.4 x10^3/uL (1.8-7.7); NEUT % 67 % (31-73); PLATELET COUNT 267 x10^3/uL (140-400); RED BLOOD COUNT 3.11 x10^6/uL (4.30-5.70); RED CELL DISTRIBUTION WIDTH 16.6 % (11.5-14.5); WHITE BLOOD COUNT 6.5 x10^3/uL (4.0-11.0)
[2020-03-06 08:52] LABS: PROTHROMBIN TIME PATIENT 14.9 SEC (11.7-14.0)
[2020-03-06 09:04] LABS: CALCIUM 8.9 mg/dL (8.5-10.1); CREATININE 2.2 mg/dL (0.7-1.3); POTASSIUM 4.2 mmol/L (3.5-5.1)
[2020-03-06 09:11] LABS: ALBUMIN 2.9 g/dL (3.4-5.0); ALBUMIN/GLOBULIN RATIO 0.6 (1.0-1.7); TOTAL BILIRUBIN 0.4 mg/dL (0.2-1.0); TOTAL PROTEIN 7.7 g/dL (6.4-8.2)
--- NOTE | 2020-03-06 09:40 | RAD ---
Examination: US GUID NDL PLACE/ASPI/BX History: Reason: LT GROIN MASS / Spl. Instructions: / History: Comparison/Correlation: CT abdomen and pelvis without contrast 02/13/2020 Findings: Risks and benefits of left groin lymph node ultrasound-guided wire localization were discussed with the patient and informed consent was obtained. Cleansing with ChloraPrep at the anticipated site of needle placement was performed. Sterile draping, sterile gel, and sterile probe cover is were utilized. Approximately 5 cc of 1 percent lidocaine was administered subcutaneously and along the expected course of the needle track. Lateral approach was utilized. 5 cm needle-wire combination was introduced into an enlarged left groin lymph node measuring up to 3 cm in maximum dimension. Marked cortical thickening of this lymph node is present with effacement of the lymph node hilum. Impression: Successful needle wire localization of an enlarged left groin lymph node. Electronically signed by: Jadiel Thomas MD (03/06/2020 9:37 AM) [id number]
--- NOTE | 2020-03-06 10:35 | PDOC ---
SURGICAL PROGRESS NOTE Subjective No change in dictted H&P Vital Signs Vital Signs Date Time Temp Pulse Resp B/P (MAP) Pulse Ox O2 Delivery O2 Flow Rate FiO2 03/06/20 08:26 97.0 102 20 159/72 100 Room Air 97.0 Labs Laboratory Tests Test 03/06/20 08:15 White Blood Count 6.5 x10^3/uL (4.0-11.0) Red Blood Count 3.11 x10^6/uL (4.30-5.70) Hemoglobin 9.5 g/dL (13.0-17.5) Hematocrit 28.1 % (39.0-53.0) Mean Corpuscular Volume 90 fL (79-100) Mean Corpuscular Hemoglobin 30 pg (25-35) Mean Corpuscular Hemoglobin Concent 34 g/dL (31-37) Red Cell Distribution Width 16.6 % (11.5-14.5) Platelet Count 267 x10^3/uL (140-400) Neutrophils (%) (Auto) 67 % (31-73) Lymphocytes (%) (Auto) 20 % (24-48) Monocytes (%) (Auto) 10 % (0-9) Eosinophils (%) (Auto) 2 % (0-3) Basophils (%) (Auto) 1 % (0-3) Neutrophils # (Auto) 4.4 x10^3/uL (1.8-7.7) Lymphocytes # (Auto) 1.3 x10^3/uL (1.0-4.8) Monocytes # (Auto) 0.7 x10^3/uL (0.0-1.1) Eosinophils # (Auto) 0.1 x10^3/uL (0.0-0.7) Basophils # (Auto) 0.0 x10^3/uL (0.0-0.2) Prothrombin Time 14.9 SEC (11.7-14.0) Prothromb Time International Ratio 1.2 (0.8-1.1) Sodium Level 140 mmol/L (136-145) Potassium Level 4.2 mmol/L (3.5-5.1) Chloride Level 106 mmol/L (98-107) Carbon Dioxide Level 24 mmol/L (21-32) Anion Gap 10 (6-14) Blood Urea Nitrogen 24 mg/dL (8-26) Creatinine 2.2 mg/dL (0.7-1.3) Estimated GFR (Cockcroft-Gault) 35.0 BUN/Creatinine Ratio 11 (6-20) Glucose Level 134 mg/dL (70-99) Calcium Level 8.9 mg/dL (8.5-10.1) Total Bilirubin 0.4 mg/dL (0.2-1.0) Aspartate Amino Transf (AST/SGOT) 22 U/L (15-37) Alanine Aminotransferase (ALT/SGPT) 25 U/L (16-63) Alkaline Phosphatase 88 U/L (46-116) Total Protein 7.7 g/dL (6.4-8.2) Albumin 2.9 g/dL (3.4-5.0) Albumin/Globulin Ratio 0.6 (1.0-1.7) Laboratory Tests Test 03/06/20 08:15 White Blood Count 6.5 x10^3/uL (4.0-11.0) Red Blood Count 3.11 x10^6/uL (4.30-5.70) Hemoglobin 9.5 g/dL (13.0-17.5) Hematocrit 28.1 % (39.0-53.0) Mean Corpuscular Volume 90 fL (79-100) Mean Corpuscular Hemoglobin 30 pg (25-35) Mean Corpuscular Hemoglobin Concent 34 g/dL (31-37) Red Cell Distribution Width 16.6 % (11.5-14.5) Platelet Count 267 x10^3/uL (140-400) Neutrophils (%) (Auto) 67 % (31-73) Lymphocytes (%) (Auto) 20 % (24-48) Monocytes (%) (Auto) 10 % (0-9) Eosinophils (%) (Auto) 2 % (0-3) Basophils (%) (Auto) 1 % (0-3) Neutrophils # (Auto) 4.4 x10^3/uL (1.8-7.7) Lymphocytes # (Auto) 1.3 x10^3/uL (1.0-4.8) Monocytes # (Auto) 0.7 x10^3/uL (0.0-1.1) Eosinophils # (Auto) 0.1 x10^3/uL (0.0-0.7) Basophils # (Auto) 0.0 x10^3/uL (0.0-0.2) Prothrombin Time 14.9 SEC (11.7-14.0) Prothromb Time International Ratio 1.2 (0.8-1.1) Sodium Level 140 mmol/L (136-145) Potassium Level 4.2 mmol/L (3.5-5.1) Chloride Level 106 mmol/L (98-107) Carbon Dioxide Level 24 mmol/L (21-32) Anion Gap 10 (6-14) Blood Urea Nitrogen 24 mg/dL (8-26) Creatinine 2.2 mg/dL (0.7-1.3) Estimated GFR (Cockcroft-Gault) 35.0 BUN/Creatinine Ratio 11 (6-20) Glucose Level 134 mg/dL (70-99) Calcium Level 8.9 mg/dL (8.5-10.1) Total Bilirubin 0.4 mg/dL (0.2-1.0) Aspartate Amino Transf (AST/SGOT) 22 U/L (15-37) Alanine Aminotransferase (ALT/SGPT) 25 U/L (16-63) Alkaline Phosphatase 88 U/L (46-116) Total Protein 7.7 g/dL (6.4-8.2) Albumin 2.9 g/dL (3.4-5.0) Albumin/Globulin Ratio 0.6 (1.0-1.7) Justicifation of Admission Dx: Justifications for Admission: Justification of Admission Dx: N/A Comments: LUIS Lange MD Mar 06, 2020 10:35
--- NOTE | 2020-03-06 10:42 | PDOC ---
SURGICAL PROGRESS NOTE Subjective Op Note: Surgeon...................................................Olivas Pro op duag.............................................pelvic lymphadenopathy Post op duag...........................................same Anaesthesia............................................general Procedure...............................................excision mass left groin Blood loss..............................................5cc Fluids....................................................see anesthesia sheet Drains....................................................none Condition...............................................satisfactory Vital Signs Vital Signs Date Time Temp Pulse Resp B/P (MAP) Pulse Ox O2 Delivery O2 Flow Rate FiO2 03/06/20 08:26 97.0 102 20 159/72 100 Room Air 97.0 Labs Laboratory Tests Test 03/06/20 08:15 White Blood Count 6.5 x10^3/uL (4.0-11.0) Red Blood Count 3.11 x10^6/uL (4.30-5.70) Hemoglobin 9.5 g/dL (13.0-17.5) Hematocrit 28.1 % (39.0-53.0) Mean Corpuscular Volume 90 fL (79-100) Mean Corpuscular Hemoglobin 30 pg (25-35) Mean Corpuscular Hemoglobin Concent 34 g/dL (31-37) Red Cell Distribution Width 16.6 % (11.5-14.5) Platelet Count 267 x10^3/uL (140-400) Neutrophils (%) (Auto) 67 % (31-73) Lymphocytes (%) (Auto) 20 % (24-48) Monocytes (%) (Auto) 10 % (0-9) Eosinophils (%) (Auto) 2 % (0-3) Basophils (%) (Auto) 1 % (0-3) Neutrophils # (Auto) 4.4 x10^3/uL (1.8-7.7) Lymphocytes # (Auto) 1.3 x10^3/uL (1.0-4.8) Monocytes # (Auto) 0.7 x10^3/uL (0.0-1.1) Eosinophils # (Auto) 0.1 x10^3/uL (0.0-0.7) Basophils # (Auto) 0.0 x10^3/uL (0.0-0.2) Prothrombin Time 14.9 SEC (11.7-14.0) Prothromb Time International Ratio 1.2 (0.8-1.1) Sodium Level 140 mmol/L (136-145) Potassium Level 4.2 mmol/L (3.5-5.1) Chloride Level 106 mmol/L (98-107) Carbon Dioxide Level 24 mmol/L (21-32) Anion Gap 10 (6-14) Blood Urea Nitrogen 24 mg/dL (8-26) Creatinine 2.2 mg/dL (0.7-1.3) Estimated GFR (Cockcroft-Gault) 35.0 BUN/Creatinine Ratio 11 (6-20) Glucose Level 134 mg/dL (70-99) Calcium Level 8.9 mg/dL (8.5-10.1) Total Bilirubin 0.4 mg/dL (0.2-1.0) Aspartate Amino Transf (AST/SGOT) 22 U/L (15-37) Alanine Aminotransferase (ALT/SGPT) 25 U/L (16-63) Alkaline Phosphatase 88 U/L (46-116) Total Protein 7.7 g/dL (6.4-8.2) Albumin 2.9 g/dL (3.4-5.0) Albumin/Globulin Ratio 0.6 (1.0-1.7) Laboratory Tests Test 03/06/20 08:15 White Blood Count 6.5 x10^3/uL (4.0-11.0) Red Blood Count 3.11 x10^6/uL (4.30-5.70) Hemoglobin 9.5 g/dL (13.0-17.5) Hematocrit 28.1 % (39.0-53.0) Mean Corpuscular Volume 90 fL (79-100) Mean Corpuscular Hemoglobin 30 pg (25-35) Mean Corpuscular Hemoglobin Concent 34 g/dL (31-37) Red Cell Distribution Width 16.6 % (11.5-14.5) Platelet Count 267 x10^3/uL (140-400) Neutrophils (%) (Auto) 67 % (31-73) Lymphocytes (%) (Auto) 20 % (24-48) Monocytes (%) (Auto) 10 % (0-9) Eosinophils (%) (Auto) 2 % (0-3) Basophils (%) (Auto) 1 % (0-3) Neutrophils # (Auto) 4.4 x10^3/uL (1.8-7.7) Lymphocytes # (Auto) 1.3 x10^3/uL (1.0-4.8) Monocytes # (Auto) 0.7 x10^3/uL (0.0-1.1) Eosinophils # (Auto) 0.1 x10^3/uL (0.0-0.7) Basophils # (Auto) 0.0 x10^3/uL (0.0-0.2) Prothrombin Time 14.9 SEC (11.7-14.0) Prothromb Time International Ratio 1.2 (0.8-1.1) Sodium Level 140 mmol/L (136-145) Potassium Level 4.2 mmol/L (3.5-5.1) Chloride Level 106 mmol/L (98-107) Carbon Dioxide Level 24 mmol/L (21-32) Anion Gap 10 (6-14) Blood Urea Nitrogen 24 mg/dL (8-26) Creatinine 2.2 mg/dL (0.7-1.3) Estimated GFR (Cockcroft-Gault) 35.0 BUN/Creatinine Ratio 11 (6-20) Glucose Level 134 mg/dL (70-99) Calcium Level 8.9 mg/dL (8.5-10.1) Total Bilirubin 0.4 mg/dL (0.2-1.0) Aspartate Amino Transf (AST/SGOT) 22 U/L (15-37) Alanine Aminotransferase (ALT/SGPT) 25 U/L (16-63) Alkaline Phosphatase 88 U/L (46-116) Total Protein 7.7 g/dL (6.4-8.2) Albumin 2.9 g/dL (3.4-5.0) Albumin/Globulin Ratio 0.6 (1.0-1.7) Justicifation of Admission Dx: Justifications for Admission: Justification of Admission Dx: N/A LUIS OLIVAS MD Mar 06, 2020 10:42
--- NOTE | 2020-03-06 10:46 | DISCH ---
DISCHARGE INSTRUCTIONS Condition on Discharge Condition on Discharge: Stable Activity After Discharge Activity Instructions for Disc: Activity as tolerated Diet after Discharge Diet after Discharge: Cardiac, Diabetic No Calorie Level Liquid Texture: Thin Liquid Wound Incision Care Wound/Incision Care: Other, see below Other wound/incision instructi: May shower..do not remove dressing if possible Follow-Up Follow up with: call and make appt to see Follow Up With: Dr. Olivas in 2 weeks [phone] LUIS OLIVAS MD Mar 06, 2020 10:46
[2020-03-06 11:00] VITALS: BP 136/66
--- NOTE | 2020-03-06 19:20 | OP ---
DATE OF SURGERY: 03/06/2020 SURGEON: Stanley Olivas MD PREOPERATIVE DIAGNOSIS: Mass of the left groin with lymphadenopathy. POSTOPERATIVE DIAGNOSIS: Mass of the left groin with lymphadenopathy. ANESTHESIA: General. PROCEDURE: Excision of mass, left groin. TECHNIQUE: Under general anesthesia, the patient was properly prepped and draped in routine fashion for left inguinal surgery. The guidewire was in placed and we made an incision a little bit cephalad following the skin lines to the wire. This was done with a 15 blade and the incision was about 6-8 cm in size. We carried it through the skin with a 15 blade and then with a clamp over it, we went over to the subcutaneous guidewire, delivered it into the wound. We used Sloan retractors and later Medina as we slowly followed the guidewire down to the mass. The mass was fairly deep and the guidewire within it. We therefore used Metzenbaum scissors, cautery and also finger dissection to get the mass from it. The mass seemed to be somewhat adherent to some of the subcutaneous almost, we go ahead and there had been some old scarring and inflammation. There was no recent inflammation. We slowly went around this and deliver the mass, which was about 3-4 cm in size and sent it to pathology. We decided to do the pathology routine, also cultures and also AFB, and also we will do the studies for lymphoma. The resultant defect was inspected. Small bleeders were cauterized and pressure was used to control the bleeding. Once this was done, we used 3-0 interrupted Vicryl for the very deep subcutaneous tissues and then 4-0 in the subcutaneous to approximate the subcutaneous tissue, so as not to leave the space. We then placed a number 5-0 subcuticular Vicryl to close the skin. Tegaderm dressing was applied and the procedure was terminated. The blood loss was approximately 5 mL. Fluids given can be obtained from the anesthesia sheet. No drains were used and the condition of the patient was satisfactory as he has returned to the recovery room. STANLEY OLIVAS MD DR: BRITT/alice JOB#: [id number] / [id number]
--- NOTE | 2020-03-08 16:06 | PATHOLOGY ---
[facility] Accession Number: [id number] . 01 Material submitted: . groin - LEFT GROIN MASS - FS. Modifiers: left . 01 Clinical history: . Left groin mass . 02 Frozen section diagnosis: . FROZEN SECTION DIAGNOSIS (Pedro Shell MD) . Soft tissue (left groin mass): - Atypical with extensive necrosis. . These findings are discussed with Dr. Stanley Retana and a written report was placed in the patient's chart. . . . GROSS DESCRIPTION Specimen received fresh labeled, "Tobi Ochoa, left groin mass excision", consists of a zavala piece of tissue measuring 3.0 x 2.8 x 1.7 cm on serial sections and there is a yellowish white nodule that measures 1.5 x 1 x 0.5 cm. A portion of it is frozen and submitted in cassette labeled A1. The rest of the tissue is submitted within A2 and A5. A portion of the tissue is sent for culture and also flow. (SHA:[facility]; 03/06/2020) . Frozen section performed at [facility], [address] [place] [address]. MORELIAK/MBMandie . 03 Diagnosis: Lymph node "left groin mass": - Extensive coagulative/caseous necrosis. - See comment. (SHA:[facility] 03/08/2020) [facility] 03/08/2020 1057 [facility] . 03 Comment: There are lymphoid elements with extensive necrosis. This necrosis could be secondary to tumor or could be an infectious process. . The special stains AFB and DEVYN for microbacteria PAS-f for fungus and Jerardo's for Warthin-starry all are negative. . Immunoperoxidase stains AE1/AE3, PSAP, S100, HMB-45, PSA, MART-1 are all negative. Immunoperoxidase CD10 stain necrotic debris and CD68 stains histiocytes. Due to extensive necrosis the cellular detail cannot be accurately accessed. This case is also reviewed by Dr. Rossi Maria. This case was also discussed with Dr. Stanley Retana on 03/08/2020 at 3pm. The FLOW was reported as negative. (SHA:[facility] 03/08/2020) . 03 Electronically signed: . Pedro Shell MD, Pathologist NPI- [id number] . 04 Gross description: . PLEASE SEE GROSS DESCRIPTION DICTATED UNDER FROZEN SECTION. /MBR 03/06/2020 1607 Local . 03 Pathologist provided ICD-10: I88.9 . 03 CPT . 048765, 308244, 219290, 376679, S81225, [id number], [id number] Specimen Comment: A courtesy copy of this report has been sent to [phone], [phone] Specimen Comment: [id number] Specimen Comment: Report sent to / DR SON Performed at: [address] [facility] [address] [id number] MD Wm Mirza MD Phone: [phone] Performed at: 02 [facility] [place] [address] [place], [place] [id number] MD Chetan Marshall MD Phone: [phone] Performed at: 03 [facility] [place] [address] [id number] MD Jb Shetty MD Phone: [phone] Performed at: 04 [facility] [address] [place] [id number] MD Wm Mirza MD Phone: [phone]
== END | disposition home or self-care (01) ==
LOC: SURG 07:37
PROVIDERS: ATTEND Specialist
DX: R22.2 Localized swelling, mass and lump, trunk (principal); M79.89 Other specified soft tissue disorders; I10 Essential (primary) hypertension; E11.9 Type 2 diabetes mellitus without complications; Z79.899 Other long term (current) drug therapy; Z79.84 Long term (current) use of oral hypoglycemic drugs
CPT/HCPCS: 36415; 49203; 76942; 80053; 82962; 85025; 85610; 87071; 87075; 87102; 87116; 88184; 88185; A7015; G0103; J0690; J1100; J2370; J2405; J2704; J3010; Q9968

== ENCOUNTER → 2020-03-14 | Outpatient (CLI) | payer MEDICARE ==
[2020-03-06 11:00] VITALS: BP 136/66
[~2020-03-14] MED LIST changes: -BUPIVACAINE-EPI 0.5%-1:200000 MPF 30 ML VIAL. INJ ONE; -BUPIVACAINE-EPI 0.5%-1:200000 MPF 30 ML VIAL. ONE; -DEXAMETHASONE SOD PHOS 4 MG/ML VIAL ONE; -HYDROcodone/APAP 5/325MG 1 TAB TABLET PO ONE; -HYDROmorphone 2 MG/ML VIAL IV PRN; -IV RINGERS,LACTATED 1000ML 1,000 ML IV SCH; -LIDOCAINE 2% PF 5 ML VIAL. ONE; -METHYLENE BLUE 0.5% 10ml AMPULE. IJ ONE; -MORPHINE SULFATE 2 MG/ML VIAL. IV PRN; -ONDANSETRON PF 4 MG/2 ML VIAL. IV PRN; -ONDANSETRON PF 4 MG/2 ML VIAL. ONE; +OXYC-325 PO; -PHENYLEPHRINE in 0.9% NACL PF 1 MG/10 ML SYRINGE. IV ONE; -PROCHLORPERAZINE 10 MG/2 ML VIAL. IV PRN; -PROPOFOL 10 MG/ML (20ML) VIAL. IV ONE; -ceFAZolin SODIUM IV Push 1 GM VIAL. IVP ONE; -ceFAZolin SODIUM IV Push 1 GM VIAL. IVP PRN; -ePHEDrine PF IN SALINE 50 MG/10 ML SYRINGE. IV ONE; -fentaNYL PF VIAL 100 MCG/2 ML VIAL IV PRN; -fentaNYL PF VIAL 100 MCG/2 ML VIAL ONE
== END | disposition home or self-care (01) ==
LOC: LAB 14:30
PROVIDERS: ATTEND Specialist
DX: Z11.59 Encounter for screening for other viral diseases (principal)
CPT/HCPCS: U0003-CS

== ENCOUNTER 2020-03-19 06:53 | Day surgery (SDC) | payer MEDICARE ==
--- NOTE | 2020-03-18 12:54 | PREOP HP ---
DATE OF SERVICE: 03/19/2020 HISTORY OF PRESENT ILLNESS: The history is not changed from the previous history and physical done 02/19 except for the fact that he now has had the biopsy or removal of left inguinal lymph node. The node showed necrosis and I spoke to the pathologist and they suggested excising another node, a larger one from the right inguinal area. I have spoken to an oncologist, he agrees and he will also see him and perhaps a bone marrow may also be ordered. The patient otherwise is better, has less edema as he is keeping his legs up and seems to be improving. It should be noted that the CT scan done previously did show retroperitoneal lymphadenopathy also. PAST MEDICAL HISTORY: Shows that he has had normal childhood diseases. He is diabetic and takes insulin and takes medicine for hypertension. He has had no heart disease to his knowledge and he does not take anticoagulants. SOCIAL HISTORY: Shows that he does not use illicit drugs, smoke or drink. ALLERGIES: He has no allergies. REVIEW OF SYSTEMS: He has bilateral knee pain because of arthritis and uses a walker for that and he is alert, cooperative, and otherwise is doing relatively well. He does have swelling of his scrotum and penis, but that is much less since he has been elevating his torso. PHYSICAL EXAMINATION: GENERAL: Shows an alert male, in no acute distress. HEENT: Grossly normal. CHEST: Clear as we auscultated it and percussion was negative. HEART: Had no murmurs, no thrills and there were no abnormalities. Rate was 75 beats per minute and it was regular. ABDOMEN: Soft. There was no organomegaly or other abnormalities. GENITALIA: The scrotum and penis were less swollen now than when previously seen. I still could not palpate through the obesity and edema the nodes in the right inguinal area, but CT scan does show a large node there. He also has as stated before, the retroperitoneal nodes. EXTREMITIES: Grossly negative. IMPRESSION: 1. Lymphadenopathy, etiology not determined. 2. Hypertension. 3. Arthritis. 4. Diabetes. LUIS OLIVAS MD DR: BRITT/alice JOB#: [id number] / [id number] MARIPOSA
[~2020-03-19] VITALS: Ht 180.3 cm; Wt 113.0 kg
[~2020-03-19 06:53] MED LIST changes: -OXYC-325 PO
[2020-03-19] MEDS ORDERED: fentaNYL PF VIAL 100 MCG/2 ML VIAL IV PRN ×2 (07:00)
[2020-03-19] MEDS ORDERED: LIDOCAINE 1% PF 2 ML VIAL. ID PRN (07:00)
[2020-03-19] MEDS ORDERED: PROCHLORPERAZINE 10 MG/2 ML VIAL. IV PRN (07:00)
[2020-03-19] MEDS ORDERED: ONDANSETRON PF 4 MG/2 ML VIAL. IV PRN (07:00)
[2020-03-19] MEDS ORDERED: IV RINGERS,LACTATED 1000ML 1,000 ML IV SCH (07:00)
[2020-03-19] MEDS ORDERED: HYDROmorphone 2 MG/ML VIAL IV PRN (07:00)
[2020-03-19] MEDS ORDERED: MORPHINE SULFATE 2 MG/ML VIAL. IV PRN (07:00)
[2020-03-19] MEDS ORDERED: INSULIN LISPRO 100 UNIT/ML 3ML VIAL for OP,RR ONLY. SQ PRN (07:15)
[2020-03-19 07:28] LABS: BASO % 1 % (0-3); EOS # 0.2 x10^3/uL (0.0-0.7); EOS % 3 % (0-3); HEMATOCRIT 32.3 % (39.0-53.0); HEMOGLOBIN 10.5 g/dL (13.0-17.5); LYMPH # 1.7 x10^3/uL (1.0-4.8); LYMPH % 28 % (24-48); MEAN CORPUSCULAR HEMOGLOBIN 30 pg (25-35); MEAN CORPUSCULAR HGB CONC 32 g/dL (31-37); MEAN CORPUSCULAR VOLUME 91 fL (79-100); MONO # 0.5 x10^3/uL (0.0-1.1); MONO % 8 % (0-9); NEUT # 3.6 x10^3/uL (1.8-7.7); NEUT % 60 % (31-73); PLATELET COUNT 269 x10^3/uL (140-400); RED BLOOD COUNT 3.55 x10^6/uL (4.30-5.70); RED CELL DISTRIBUTION WIDTH 16.7 % (11.5-14.5)
[2020-03-19 07:39] LABS: CALCIUM 9.1 mg/dL (8.5-10.1); CREATININE 2.3 mg/dL (0.7-1.3); GFR 33.3; POTASSIUM 4.3 mmol/L (3.5-5.1)
[2020-03-19 07:45] LABS: ALBUMIN/GLOBULIN RATIO 0.7 (1.0-1.7); TOTAL BILIRUBIN 0.3 mg/dL (0.2-1.0); TOTAL PROTEIN 7.6 g/dL (6.4-8.2)
[2020-03-19] MEDS ORDERED: fentaNYL PF VIAL 100 MCG/2 ML VIAL ONE (08:10)
[2020-03-19] MEDS ORDERED: LIDOCAINE 2% PF 5 ML VIAL. ONE (08:11)
[2020-03-19] MEDS ORDERED: ONDANSETRON PF 4 MG/2 ML VIAL. ONE (08:11)
[2020-03-19] MEDS ORDERED: PROPOFOL 10 MG/ML (20ML) VIAL. IV ONE (08:11)
[2020-03-19] MEDS ORDERED: DEXAMETHASONE SOD PHOS 4 MG/ML VIAL ONE (08:11)
[2020-03-19] MEDS ORDERED: BUPIVACAINE-EPI 0.5%-1:200000 MPF 30 ML VIAL. ONE (08:59)
--- NOTE | 2020-03-19 09:12 | PDOC ---
SURGICAL PROGRESS NOTE Subjective Op Note Surgeon...........................................Mazin Pre and post op diag........................pelvic lymphadenectomy Anesthesia......................................general Procedure.......................................excision mass right groin Drains............................................none Fluids............................................see anesthesia sheet Blood loss......................................7cc Condition........................................satisfactory Vital Signs Vital Signs Date Time Temp Pulse Resp B/P (MAP) Pulse Ox O2 Delivery O2 Flow Rate FiO2 03/19/20 07:26 98.3 94 20 176/74 99 Room Air 98.3 Labs Laboratory Tests Test 03/19/20 07:20 White Blood Count 6.0 x10^3/uL (4.0-11.0) Red Blood Count 3.55 x10^6/uL (4.30-5.70) Hemoglobin 10.5 g/dL (13.0-17.5) Hematocrit 32.3 % (39.0-53.0) Mean Corpuscular Volume 91 fL (79-100) Mean Corpuscular Hemoglobin 30 pg (25-35) Mean Corpuscular Hemoglobin Concent 32 g/dL (31-37) Red Cell Distribution Width 16.7 % (11.5-14.5) Platelet Count 269 x10^3/uL (140-400) Neutrophils (%) (Auto) 60 % (31-73) Lymphocytes (%) (Auto) 28 % (24-48) Monocytes (%) (Auto) 8 % (0-9) Eosinophils (%) (Auto) 3 % (0-3) Basophils (%) (Auto) 1 % (0-3) Neutrophils # (Auto) 3.6 x10^3/uL (1.8-7.7) Lymphocytes # (Auto) 1.7 x10^3/uL (1.0-4.8) Monocytes # (Auto) 0.5 x10^3/uL (0.0-1.1) Eosinophils # (Auto) 0.2 x10^3/uL (0.0-0.7) Basophils # (Auto) 0.0 x10^3/uL (0.0-0.2) Prothrombin Time 14.0 SEC (11.7-14.0) Prothromb Time International Ratio 1.1 (0.8-1.1) Sodium Level 140 mmol/L (136-145) Potassium Level 4.3 mmol/L (3.5-5.1) Chloride Level 107 mmol/L (98-107) Carbon Dioxide Level 23 mmol/L (21-32) Anion Gap 10 (6-14) Blood Urea Nitrogen 22 mg/dL (8-26) Creatinine 2.3 mg/dL (0.7-1.3) Estimated GFR (Cockcroft-Gault) 33.3 BUN/Creatinine Ratio 10 (6-20) Glucose Level 110 mg/dL (70-99) Calcium Level 9.1 mg/dL (8.5-10.1) Total Bilirubin 0.3 mg/dL (0.2-1.0) Aspartate Amino Transf (AST/SGOT) 18 U/L (15-37) Alanine Aminotransferase (ALT/SGPT) 21 U/L (16-63) Alkaline Phosphatase 91 U/L (46-116) Total Protein 7.6 g/dL (6.4-8.2) Albumin 3.0 g/dL (3.4-5.0) Albumin/Globulin Ratio 0.7 (1.0-1.7) Laboratory Tests Test 03/19/20 07:20 White Blood Count 6.0 x10^3/uL (4.0-11.0) Red Blood Count 3.55 x10^6/uL (4.30-5.70) Hemoglobin 10.5 g/dL (13.0-17.5) Hematocrit 32.3 % (39.0-53.0) Mean Corpuscular Volume 91 fL (79-100) Mean Corpuscular Hemoglobin 30 pg (25-35) Mean Corpuscular Hemoglobin Concent 32 g/dL (31-37) Red Cell Distribution Width 16.7 % (11.5-14.5) Platelet Count 269 x10^3/uL (140-400) Neutrophils (%) (Auto) 60 % (31-73) Lymphocytes (%) (Auto) 28 % (24-48) Monocytes (%) (Auto) 8 % (0-9) Eosinophils (%) (Auto) 3 % (0-3) Basophils (%) (Auto) 1 % (0-3) Neutrophils # (Auto) 3.6 x10^3/uL (1.8-7.7) Lymphocytes # (Auto) 1.7 x10^3/uL (1.0-4.8) Monocytes # (Auto) 0.5 x10^3/uL (0.0-1.1) Eosinophils # (Auto) 0.2 x10^3/uL (0.0-0.7) Basophils # (Auto) 0.0 x10^3/uL (0.0-0.2) Prothrombin Time 14.0 SEC (11.7-14.0) Prothromb Time International Ratio 1.1 (0.8-1.1) Sodium Level 140 mmol/L (136-145) Potassium Level 4.3 mmol/L (3.5-5.1) Chloride Level 107 mmol/L (98-107) Carbon Dioxide Level 23 mmol/L (21-32) Anion Gap 10 (6-14) Blood Urea Nitrogen 22 mg/dL (8-26) Creatinine 2.3 mg/dL (0.7-1.3) Estimated GFR (Cockcroft-Gault) 33.3 BUN/Creatinine Ratio 10 (6-20) Glucose Level 110 mg/dL (70-99) Calcium Level 9.1 mg/dL (8.5-10.1) Total Bilirubin 0.3 mg/dL (0.2-1.0) Aspartate Amino Transf (AST/SGOT) 18 U/L (15-37) Alanine Aminotransferase (ALT/SGPT) 21 U/L (16-63) Alkaline Phosphatase 91 U/L (46-116) Total Protein 7.6 g/dL (6.4-8.2) Albumin 3.0 g/dL (3.4-5.0) Albumin/Globulin Ratio 0.7 (1.0-1.7) Justicifation of Admission Dx: Justifications for Admission: Justification of Admission Dx: N/A LUIS OLIVAS MD Mar 19, 2020 09:12
[2020-03-19] MEDS ORDERED: MIDAZOLAM HCL/PF 2 MG/2 ML VIAL. ONE (09:18)
[2020-03-19] MEDS: ceFAZolin SODIUM IV Push 1 GM VIAL. IVP PRN ×2 (09:35→11:08)
[2020-03-19] MEDS ORDERED: PHENYLEPHRINE in 0.9% NACL PF 1 MG/10 ML SYRINGE. IV ONE (09:45)
[2020-03-19] MEDS ORDERED: ePHEDrine PF IN SALINE 50 MG/10 ML SYRINGE. IV ONE (09:58)
[2020-03-19] MEDS ORDERED: GELATIN SPONGE SIZE 100. ONE (10:26)
[2020-03-19] MEDS ORDERED: THROMBIN TOPICAL 5,000 UNIT VIAL. ONE (10:27)
--- NOTE | 2020-03-19 11:17 | DISCH ---
DISCHARGE INSTRUCTIONS Condition on Discharge Condition on Discharge: Stable Activity After Discharge Activity Instructions for Disc: Activity as tolerated, Avoid exertion Diet after Discharge Diet after Discharge: Cardiac, Diabetic No Calorie Level Liquid Texture: Thin Liquid Wound Incision Care Wound/Incision Care: Other, see below Other wound/incision instructi: keep wound dry 24 hours then may shower..leave dresing o as long as possibe Follow-Up Follow up with: Dr. Fletcher 10-14 days LUIS OLIVAS MD Mar 19, 2020 11:17
[2020-03-19] MEDS ORDERED: OXYC-325 PO (11:21)
[2020-03-19] MEDS ORDERED: oxyCODONE/APAP 7.5/325 1 TAB TABLET PO ONE (11:30)
[2020-03-19 11:55] VITALS: BP 167/72
--- NOTE | 2020-03-19 17:33 | RAD ---
Examination: Ultrasound-guided right groin needle localization. INDICATION: 79-year-old man with bilateral inguinal lymphadenopathy. Previous nondiagnostic left excisional biopsy lymph node due to excessive necrotic tissue. COMPARISON: Ultrasound-guided left groin lymph node a localization of 03/06/2020, CT abdomen and pelvis of 02/13/2020. TECHNIQUE AND FINDINGS: Informed consent was obtained. Appropriate procedural pause observed. Using standard sterile technique, ultrasound guidance and local anesthesia with 1 mL of 1 percent lidocaine, a 20-gauge 10 cm Puga needle was advanced through the largest right groin lymph node showing internal vascularity on preprocedural ultrasound. This measured 4.1 x 2.6 x 3.2 cm. On visual confirmation of satisfactory purchase through the enlarged lymph node by the needle, a hook wire was threaded through which with the tip terminating just beyond the far end of the lymph node, shy of the right inguinal vessels. The needle was removed and the wire left in place in satisfactory position. The puncture site was dressed and the patient transported to preop for further care and management. There were no apparent complications. I reviewed the imaging findings in correlation with the patient's previous abdomen and pelvis CT with the patient's referring surgeon in person shortly after the procedure. IMPRESSION: Successful needle and wire localization of an enlarged right groin lymph node. This likely represents an enlarged superficial inguinal lymph node. No apparent complications. Electronically signed by: Cullen Renae MD (03/19/2020 5:30 PM) [id number]
--- NOTE | 2020-03-20 00:01 | OP ---
DATE OF SURGERY: 03/19/2020 SURGEON: Stanley Olivas MD PREOPERATIVE DIAGNOSIS: Mass, right groin. POSTOPERATIVE DIAGNOSES: Right groin with masses and lymphadenopathy. ANESTHESIA: General. PROCEDURE: Right groin exploration with superficial and some deep node exploration and removal. TECHNIQUE: Under general anesthesia, the patient was properly prepped and draped in routine fashion. The lesion in question was in the right groin and as such, this was draped normally. A guidewire had been placed to the largest lymph node in the right inguinal area or groin and we, therefore, made incision following the skin lines about a centimeter or more below the crease in the groin. This was done with a 15 blade and carried down through the skin close to the wire, the guidewire being more into the crease. We then used Sloan retractors to pull superiorly and identified the wire and the subcutaneous. We delivered it into the subcutaneous and then used Sloan retractors and then later Medina's and a Weitlaner to hold the tissues apart while we dissected down. We followed the guidewire down and there were many lymph nodes, one being very large at the depth and this was probably 6 centimeter or so in size. We identified it. There were others more lateral and some smaller ones there and these were also identified. The larger one was removed first as we slowly went around it using various times Metzenbaum scissors, cautery and finger dissection to slowly free it from the surrounding structures. They all had somewhat like a very weak scars to the lymph nodes that were enlarged. There was no inflammation, but it did not fall away freely as most lymph nodes do. As such, we had used finger dissection and cautery and sometimes Metzenbaum to free it up from the surrounding tissues. This having been done, we delivered the node into the wound, amputated some of the subcutaneous fibers attached to it and then sent it to the lab. These were sent fresh and not in formalin. Another node being about 4 cm in size, was likewise removed and 2 or 3 smaller ones were removed in a similar fashion. We took these out because he had previously had node dissection on the left and the mass removed and the node was so necrotic that it could make a diagnosis and that is why we had to come back into this right side. This having been done, we did get cultures and AFB and also get all the studies for lymphoma and other malignancies on these lymph nodes. The resultant defect was inspected and it should be noted that there was about 15-20 mL of bleeding. We did not cut the large femoral artery or vein, but some of the small branches did bleed and we had to cauterize them. We also placed Gelfoam with thrombin in there and this stopped all of the bleed. Once the bleeding was stopped, there was no hematoma and we then closed the wound. We irrigated with saline and then approximated the deeper structures using 4 interrupted Vicryl and the skin was closed using subcuticular 5-0 Vicryl. It should be stated that the dissection did extend down to and close to the femoral ring, but we did not see or dissect out the vessels. The procedure was now terminated as sterile Tegaderm dressing was applied after Dermabond was applied. Blood loss was about 20 mL. Fluids given can be obtained from the anesthesia sheet. No drains were used and condition of the patient was satisfactory as he has returned to the recovery room. STANLEY OLIVAS MD DR: BRITT/alice JOB#: [id number] / [id number]
--- NOTE | 2020-03-22 15:08 | PATHOLOGY ---
[facility] Accession Number: [id number] . 01 Material submitted: . PART A: groin - MEDIAL RIGHT GROIN MASS,FS. Modifiers: right, medial PART B: groin - LATERAL RIGHT GROIN MASS. Modifiers: lateral, right . 01 Clinical history: . Right groin mass . 02 Frozen section diagnosis: . INTRAOPERATIVE CONSULTATION WITH FROZEN SECTIONS (Chetan Marshall MD) . A. Medial right groin mass, excision: - Malingnant neoplasm. Definitive diagnosis pending special studies. . The results are reported to Dr. Retana. . . . . GROSS DESCRIPTION A. The specimen is received fresh for intraoperative consultation and is designated "medial right groin mass". This consists of an ovoid segment of partially torn yellow-red and zavala soft tissue measuring up to 5.0 x 3.6 x 2.5 cm in greatest dimension. A localizing wire is loosely attached on one edge. Sectioning reveals a multinodular zavala fleshy cut surface with focal pale yellowish areas of apparent necrosis. Two touch preps are prepared and submitted for H and E staining. A lead generation representative portion of the specimen is submitted in RPMI for flow cytometric analysis. A lead generation representative portion of the mass is submitted for frozen section as FSA1. The tissue remaining from frozen section is submitted for permanent sections as A1. Additional sections are submitted as A2-A5. . B. The specimen is received fresh and is designated "lateral right groin mass". This consists of an ovoid mass of red and zavala soft tissue, which measures up to 4.8 x 2.8 x 2.3 cm. The specimen is bisected. Sectioning reveals a focally nodular zavala fleshy appearing cut surface, with the largest nodular area measuring up to 3.7 cm. A lead generation representative portion of this mass is submitted together with a lead generation representative portion from the medial mass in RPMI for flow cytometric analysis. [employer] sections are submitted as B1-B4. (JPM:mani; 03/22/2020) . . Frozen sections and touch preps performed at [facility], [address] [place] [address]. ALE/LEANNA . 02 Diagnosis: A. Lymph nodes, medial right groin mass excision: - METASTATIC LARGE CELL NEUROENDOCRINE CARCINOMA. SEE COMMENT. . B. Lymph nodes, lateral right groin mass excision: - METASTATIC LARGE CELL NEUROENDOCRINE CARCINOMA. SEE COMMENT. . (JPM:mani/mml; 03/22/2020) QMS 03/22/2020 0946 Local . 02 Comment: Sections of the medial right groin mass and lateral right groin mass excisions appear similar and show apparent extensive jurgen replacement by a metastatic epithelial neoplasm. The malignant cells are present in solid nests and sheets and focally have a fused gland architectural pattern. The malignant cells have modest amounts of pale eosinophilic cytoplasm, and possess enlarged, rounded to ovoid vesicular nuclei containing prominent nucleoli. Mitotic figures are readily demonstrated. There are foci of coagulative tumor necrosis. . A portion of the specimen is submitted for flow cytometric analysis. The specimen has a viability of 59.5%. B-cells are polyclonal, and T-cells have no loss of T-cell antigens. There is no flow immunophenotypic evidence of an overt B-cell or T-cell lymphoproliferative disorder. See flow report ([id number]). . A panel of immunoperoxidase stains is obtained on block A4 and yields the following results: . CD45: Tumor cells negative; residual lymphocytes positive AE1/AE3: Tumor cells negative Cytokeratin GENET: Tumor cells positive CK7: Tumor cells negative Cytokeratin 20: Tumor cells negative PSA: Tumor cells negative PSAP: Tumor cells focally positive TTF-1: Tumor cells focally positive Chiang-antonia red: Tumor cells negative S100: Tumor cells negative Synaptophysin: Tumor cells positive Chromogranin: Tumor cells focally positive CD56: Tumor cells negative . The morphologic and immunophenotypic findings are supportive of the diagnosis of metastatic large cell neuroendocrine carcinoma. Possible primary sites include prostate and lung. Correlate clinically. . The case is also examined by Dr. Shell, who concurs with the diagnosis. The results are reported to Dr. Retana on 03/22/20 at 2:00 PM. (JPM:mml/mani; 03/22/2020) . . Special stains performed: Immunoperoxidase stains for AE1/AE3, cytokeratin GENET, CD45, CK7, CK20, PSA, PSAP, TTF-1, S100, chiang-antonia red, Synaptophysin, Chromogranin and CD56 . 02 Electronically signed: . Chetan Marshall MD, Pathologist NPI- [id number] . 01 Gross description: . A. PLEASE SEE GROSS DESCRIPTION DICTATED UNDER FROZEN SECTION HEADING. /QMS 03/22/2020 0926 Local . 02 Microscopic: . . . . 02 Pathologist provided ICD-10: C77.4 . 02 CPT . 364128, 903169, 629199, [id number], [id number] Specimen Comment: A courtesy copy of this report has been sent to [phone] Specimen Comment: [id number] Specimen Comment: Report sent to / DR SON Performed at: 01 [facility] [address] [facility] [address], [place] [id number] MD Wm Mirza MD Phone: [phone] Performed at: 02 [facility] [address] [place], [place] [id number] MD Chetan Marshall MD Phone: [phone]
== END 2020-03-19 12:32 | disposition home or self-care (01) ==
LOC: SURG 06:53
PROVIDERS: ATTEND Specialist
DX: C77.4 Secondary and unspecified malignant neoplasm of inguinal and lower limb lymph nodes (principal); R59.1 Generalized enlarged lymph nodes; R19.09 Other intra-abdominal and pelvic swelling, mass and lump; I10 Essential (primary) hypertension; M19.90 Unspecified osteoarthritis, unspecified site; E11.9 Type 2 diabetes mellitus without complications; Z95.4 Presence of other heart-valve replacement
CPT/HCPCS: 11606; 36415; 76942; 80053; 82962; 85025; 85610; 88184; 88185; J0690; J1100; J2250; J2370; J2405; J2704; J3010; J7120; 19083; 88305; 88331; 88341; 88342

== ENCOUNTER 2020-04-09 09:01 | Day surgery (SDC) | payer MEDICARE ==
[~2020-04-09] VITALS: Ht 180.3 cm; Wt 113.4 kg
[~2020-04-09 09:01] MED LIST changes: +HYDROmorphone 2 MG/ML VIAL IV PRN; +INSULIN LISPRO 100 UNIT/ML 3ML VIAL for OP,RR ONLY. SQ PRN; +IV RINGERS,LACTATED 1000ML 1,000 ML IV SCH; +LIDOCAINE 1% PF 2 ML VIAL. ID PRN; +MORPHINE SULFATE 2 MG/ML VIAL. IV PRN; +ONDANSETRON PF 4 MG/2 ML VIAL. IV PRN; +PROCHLORPERAZINE 10 MG/2 ML VIAL. IV PRN; +ceFAZolin SODIUM IV Push 1 GM VIAL. IVP ONE; +fentaNYL PF VIAL 100 MCG/2 ML VIAL IV PRN
--- NOTE | 2020-04-09 13:50 | PDOC ---
SURGICAL PROGRESS NOTE DATE: 04/09/20 TIME: 13:49 No change in dictated H&P. Labs Laboratory Tests Test 04/09/20 09:15 SARS-CoV-2 Antigen (Rapid) Negative (NEGATIVE) Laboratory Tests Test 04/09/20 09:15 SARS-CoV-2 Antigen (Rapid) Negative (NEGATIVE) Justicifation of Admission Dx: Justifications for Admission: Justification of Admission Dx: N/A LUIS OLIVAS MD Apr 09, 2020 13:50
--- NOTE | 2020-04-09 13:54 | PDOC ---
SURGICAL PROGRESS NOTE DATE: 04/09/20 TIME: 13:51 Op Note: Surgeon..........................................jaime Pre & Post op diag............................malignancy needing chemorx Anesthesia......................................general Procedure.......................................port-a-cath Blood loss........................................10cc Fluids..............................................nohne Drains.............................................none Condition........................................satisfactory Labs Laboratory Tests Test 04/09/20 09:15 SARS-CoV-2 Antigen (Rapid) Negative (NEGATIVE) Laboratory Tests Test 04/09/20 09:15 SARS-CoV-2 Antigen (Rapid) Negative (NEGATIVE) Justicifation of Admission Dx: Justifications for Admission: Justification of Admission Dx: N/A LUIS OLIVAS MD Apr 09, 2020 13:54
[2020-04-09 14:09] LABS: BASO % 0 % (0-3); EOS # 0.1 x10^3/uL (0.0-0.7); EOS % 1 % (0-3); HEMATOCRIT 27.8 % (39.0-53.0); HEMOGLOBIN 9.1 g/dL (13.0-17.5); LYMPH # 1.8 x10^3/uL (1.0-4.8); LYMPH % 17 % (24-48); MEAN CORPUSCULAR HEMOGLOBIN 30 pg (25-35); MEAN CORPUSCULAR HGB CONC 33 g/dL (31-37); MEAN CORPUSCULAR VOLUME 91 fL (79-100); MONO % 10 % (0-9); NEUT # 7.4 x10^3/uL (1.8-7.7); NEUT % 72 % (31-73); PLATELET COUNT 286 x10^3/uL (140-400); RED BLOOD COUNT 3.07 x10^6/uL (4.30-5.70); RED CELL DISTRIBUTION WIDTH 16.7 % (11.5-14.5); WHITE BLOOD COUNT 10.3 x10^3/uL (4.0-11.0)
[2020-04-09 14:21] LABS: PROTHROMBIN TIME PATIENT 15.7 SEC (11.7-14.0)
[2020-04-09] MEDS ORDERED: BUPIVACAINE-EPI 0.5%-1:200000 MPF 30 ML VIAL. ONE (14:23)
[2020-04-09] MEDS ORDERED: IOHEXOL 300 MG/ML 50 ML VIAL. ONE (14:23)
[2020-04-09] MEDS ORDERED: HEPARIN PF 500 UNIT/5 ML DISP.SYRIN. IVP ONE ×6 (14:23→14:24)
[2020-04-09 14:40] LABS: CALCIUM 9.1 mg/dL (8.5-10.1); CREATININE 2.1 mg/dL (0.7-1.3); POTASSIUM 4.1 mmol/L (3.5-5.1)
[2020-04-09] MEDS ORDERED: SEVOFLURANE 16 TO 30 MINUTES. IH ONE (14:42)
[2020-04-09] MEDS ORDERED: PROPOFOL 10 MG/ML (20ML) VIAL. IV ONE (14:42)
[2020-04-09] MEDS ORDERED: DEXAMETHASONE SOD PHOS 4 MG/ML VIAL ONE (14:43)
[2020-04-09] MEDS ORDERED: ONDANSETRON PF 4 MG/2 ML VIAL. ONE (14:43)
[2020-04-09 14:44] LABS: ALBUMIN 2.9 g/dL (3.4-5.0); ALBUMIN/GLOBULIN RATIO 0.6 (1.0-1.7); TOTAL BILIRUBIN 0.4 mg/dL (0.2-1.0); TOTAL PROTEIN 7.4 g/dL (6.4-8.2)
[2020-04-09] MEDS ORDERED: PHENYLEPHRINE in 0.9% NACL PF 1 MG/10 ML SYRINGE. IV ONE (14:58)
--- NOTE | 2020-04-09 16:19 | DISCH ---
DISCHARGE INSTRUCTIONS Condition on Discharge Condition on Discharge: Stable Activity After Discharge Activity Instructions for Disc: Activity as tolerated, Avoid exertion Diet after Discharge Diet after Discharge: Cardiac, Diabetic No Calorie Level Liquid Texture: Thin Liquid Wound Incision Care Wound/Incision Care: Other, see below Other wound/incision instructi: leve dressing inplace. May shower after 48hours. Follow-Up Follow up with: call and make appintment to see me in 2-4 weeks Treatment/Equipment after DC Adaptive Equipment Issued: None LUIS OLIVAS MD Apr 09, 2020 16:19
[2020-04-09 17:00] VITALS: BP 161/71
--- NOTE | 2020-04-09 23:05 | OP ---
DATE OF SURGERY: 04/09/2020 SURGEON: Stanley Olivas MD PREOPERATIVE DIAGNOSIS: Adenocarcinoma with metastasis to lymph nodes. POSTOPERATIVE DIAGNOSIS: Adenocarcinoma with metastasis to lymph nodes. ANESTHESIA: General. PROCEDURE: Placement of Port-A-Cath on the left. TECHNIQUE: Under general anesthesia, the patient was properly prepped and draped in routine fashion. We prepped both subclavicular areas in case we could get it in one side. He was right handed and decided to have this done on the left. As such, at the junction of the middle and medial thirds of the clavicle with the patient in Trendelenburg position, we passed a needle under the clavicle and over the first rib. The vein was punctured. We aspirated back venous blood, was not pulsating and then passed a guidewire into the vein down into the superior vena cava. We proved this by use of C-arm. We then removed the needle, made a richard in the skin with an 11 blade,, dilated up the subcutaneous areas with clamp and then placed the trocar and sheath over the guidewire. This was then placed into this axillary vein. As this was placed far in, we removed the guidewire and then removed the trocar leaving the sheath in place. We then passed the catheter into this area down into the superior vena cava. This location was proven with dye, injected into this area. Once we had the location and we know it was in proper location, we then flushed this catheter with heparinized saline solution about 2-3 mL of 100 units per mL of heparinized saline. We then made a pocket inferior to the clavicle on the left, down over the pectoralis major muscle by making a transverse incision with a 15 blade, about an inch or two in length. We carried this down into the skin. We then using sharp dissection while pulling up with Sloan retractors on the inferior portion, we developed a pocket, dividing some of this with the cautery and also used my finger to make the pocket. We then put the port in this area to make certain that it fit properly and it did and all was well. We then passed the trocar on the end of the catheter and passed this into the entrance site into the subcutaneous to the pocket. The catheter was then placed there. We then got location good, made it sure it was in proper location with the dye injections for more dye and left it in the very distal superior vena cava. We then cut the catheter at appropriate location, so it could be placed into the pocket with the Port-A-Cath and then passed the catheter over the nipple of the Port-A-Cath. We have placed a locking mechanism on the catheter prior to this. Once the catheter was withdrawn fully, we then placed a locking sleeve over this and clicked in place. The port was placed in its proper location in the pocket and 2-0 silk sutures were placed on either side through the eyelets in the area and tied on either side, so that we know rotation of clipping of the Port-A-Cath. This having been done, we aspirated back venous blood with ease through the Port-A-Cath using Johnson needle and then flushed dye in it to make sure of its location once again and then flushed this with about 5-10 mL of heparinized saline solution 100 units/mL. This having been done, the procedure was essentially terminated. We closed the deep dermis and subcutaneous with interrupted 4-0 Vicryl at the pocket and closed the skin using a subcuticular 5-0 Vicryl. The entrance site under the clavicle was likewise closed with #1 subcuticular 5-0 Vicryl suture. This terminated the procedure as sterile Tegaderm dressings were applied. Post-procedure, we did listen to his chest. There were good breath sounds and the x-ray department was instructed to get a postoperative upright film in the recovery room. This having been done, the patient was taken back to the recovery room. The procedure now finished. The blood loss was probably 3-4 mL. Fluids given can be obtained from the anesthesia sheet. No drains were used as the condition of the patient was satisfactory as he was returned to the recovery room. STANLEY OLIVAS MD DR: BRITT/alice JOB#: [id number] / [id number]
--- NOTE | 2020-04-10 11:52 | PREOP HP ---
DATE OF SERVICE: 04/09/2020 HISTORY OF PRESENT ILLNESS: The history is not changed from the previous history and physical done 02/19 except for the fact that he now has had the biopsy or removal of left inguinal lymph node. The node showed necrosis and I spoke to the pathologist and they suggested excising another node, a larger one from the right inguinal area. I have spoken to an oncologist, he agrees and he will also see him and perhaps a bone marrow may also be ordered. The patient otherwise is better, has less edema as he is keeping his legs up and seems to be improving. It should be noted that the CT scan done previously did show retroperitoneal lymphadenopathy also. PAST MEDICAL HISTORY: Shows that he has had normal childhood diseases. He is diabetic and takes insulin and takes medicine for hypertension. He has had no heart disease to his knowledge and he does not take anticoagulants. SOCIAL HISTORY: Shows that he does not use illicit drugs, smoke or drink. ALLERGIES: He has no allergies. REVIEW OF SYSTEMS: He has bilateral knee pain because of arthritis and uses a walker for that and he is alert, cooperative, and otherwise is doing relatively well. He does have swelling of his scrotum and penis, but that is much less since he has been elevating his torso. PHYSICAL EXAMINATION: GENERAL: Shows an alert male, in no acute distress. HEENT: Grossly normal. CHEST: Clear as we auscultated it and percussion was negative. HEART: Had no murmurs, no thrills and there were no abnormalities. Rate was 75 beats per minute and it was regular. ABDOMEN: Soft. There was no organomegaly or other abnormalities. GENITALIA: The scrotum and penis were less swollen now than when previously seen. I still could not palpate through the obesity and edema the nodes in the right inguinal area, but CT scan does show a large node there. He also has as stated before, the retroperitoneal nodes. EXTREMITIES: Grossly negative. IMPRESSION: 1. Lymphadenopathy, etiology not determined. 2. Hypertension. 3. Arthritis. 4. Diabetes. LUIS OLIVAS MD DR: BRITT/alice JOB#: [id number] / [id number]
== END 2020-04-09 17:38 | disposition home or self-care (01) ==
LOC: SURG 09:01
PROVIDERS: ATTEND Specialist
DX: R59.0 Localized enlarged lymph nodes (principal); C77.9 Secondary and unspecified malignant neoplasm of lymph node, unspecified; Z11.59 Encounter for screening for other viral diseases; I10 Essential (primary) hypertension; E11.9 Type 2 diabetes mellitus without complications; Z79.01 Long term (current) use of anticoagulants; Z79.899 Other long term (current) drug therapy; M19.90 Unspecified osteoarthritis, unspecified site; Z79.84 Long term (current) use of oral hypoglycemic drugs
CPT/HCPCS: 36415; 36556; 80053; 82962; 85025; 85610; 85730; 87426; A7015; C1788; J0690; J1100; J1642; J2370; J2405; J2704; Q9967; U0003

== ENCOUNTER → 2020-04-09 | Outpatient (CLI) | payer MEDICARE ==
[2020-03-19 11:55] VITALS: BP 167/72
[~2020-04-09] MED LIST changes: +OXYC-325 PO
--- NOTE | 2020-04-09 14:48 | RAD ---
Nuclear medicine whole body bone scan History: Reason: STAGING LARGE CELL NEUROENDOCRINE CARCINOMA / Spl. Instructions: / History: Comparison: CT chest abdomen and pelvis without contrast, February 13, 2020[facility] Technique: Examination performed after intravenous administration of 25 mCi Technetium 99m MDP. Images of the whole body were obtained in the anterior and posterior projections. Findings: Tracer uptake of ribs is symmetric. Tracer uptake in the spine is mildly heterogeneous. Tracer uptake in the pelvis is relatively symmetric. Tracer in right renal pelvis and right ureter suggests obstruction. Diffuse mild tracer in the scrotum is likely due to edema and hydrocele. Mild tracer uptake of the bilateral shoulders is likely degenerative. IMPRESSION: No scintigraphic evidence of bone metastasis. Electronically signed by: Brooks Kenney MD (04/09/2020 2:46 PM) [id number]
== END | disposition home or self-care (01) ==
LOC: NM 08:51
PROVIDERS: ATTEND Internal Medicine Hematology & Oncology
DX: N32.89 Other specified disorders of bladder (principal); C7A.8 Other malignant neuroendocrine tumors
CPT/HCPCS: 78306; A9503